=== PATIENT | male | born 1945 | race Caucasian/White ===

== ENCOUNTER 2019-02-20 11:52 | Outpatient (RCR) | payer MEDICARE, MEDICAID, SELFPAY ==
[2019-02-20 12:36] LABS: Alanine Aminotransferase 32 U/L (0-41); Albumin Level 3.4 g/dL (3.5-5.2); Alkaline Phosphatase 99 IU/L (40-130); Aspartate Amino Transferase 38 U/L (0-40); Globulin 3.8 g/dL (1.3-4.6); Total Bilirubin 0.4 mg/dL (0.15-1.2); Total Protein 7.2 g/dL (6.6-8.7); Valproic Acid Level 29.8 mcg/mL (50-100)
== END 2019-03-09 23:59 | disposition home or self-care (01) ==
LOC: LAB 11:52
PROVIDERS: Family Provider Nurse Practitioner Family; Visit Provider Family Medicine
DX: M62.81 Muscle weakness (generalized) (principal); N39.0 Urinary tract infection, site not specified; I48.91 Unspecified atrial fibrillation; I10 Essential (primary) hypertension; F03.90 Unspecified dementia, unspecified severity, without behavioral disturbance, psychotic disturbance, mood disturbance, and anxiety; F31.9 Bipolar disorder, unspecified; G31.1 Senile degeneration of brain, not elsewhere classified
CPT/HCPCS: 80076; 80164

== ENCOUNTER 2019-03-08 12:40 | Day surgery (SDC) | payer MEDICARE, MEDICAID, SELFPAY ==
--- NOTE | 2019-03-06 12:53 | ANES.PREANES ---
Pre-Anesthetic Assessment Pre-Anesthetic Assessment: Height/Weight: Height 1.68 m Weight 65.771 kg Proposed Procedure: Operation Date: 03/08/19 13:55 Proposed Procedures p Cystoscopy 33307 T83.89 N36.8(Not Applicable) - Dom Rai MD s Suprapubic Catheter Placement(Not Applicable) - Dom Rai MD Social: Social History: No alcohol and No tobacco Exam: Pre-Anes Outpt Exam: alert, oriented x 3, clear to auscultation bilaterally and regular rate & rhythm Airway: Submandibular: WNL Cervical ROM: Other (limited) MP: 2 Dentition: Other (very poor) History/ROS: No significant history except as noted Pulmonary: Pulmonary: None reported CV/HEM: CV/HEM: Afib and HTN : : None reported Hepatic: Hepatic: None reported GI: GI: None reported Metabolic: Metabolic: Hyperlipidemia Musc/skel: Musc/skel: OA/DJD and Weakness (LE) Neuropsych: Neuropsych: Anxiety, Bipolar and Depression Anesthetic Plan: ASA status: III Anesthesia: Anesthesia Evaluation and General Risk of > 500 ml blood loss (7ml/kg in children): No PFSH Anesthesia PFSH: Medical History (Updated 03/05/19 @ 12:44 by Dom Rai MD) Atrial fibrillation (Acute) Bipolar disorder (Acute) Contractures involving both knees (Acute) Generalized muscle weakness (Acute) GERD (gastroesophageal reflux disease) (Acute) History of fracture of femur (Acute) Hypertension (Acute) Major depressive disorder (Acute) 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
[2019-03-08] VITALS (13 sets, daily range): BP systolic 104–174; BP diastolic 50–78; PULSE 46–72; RESP 12–20; TEMP 36.4–36.8; O2SAT 93–100
[2019-03-08] MEDS: sodium chloride 0.9% 1,000 ML 30 ML IV (13:26)
--- NOTE | 2019-03-08 13:56 | PM.HPUD ---
H&P update H&P Update: DATE OF SURGERY/PROCEDURE: 03/08/19 DATE H&P PERFORMED: 03/05/19 PLANNED PROCEDURE: Operation Date: 03/08/19 13:55 Proposed Procedures p Cystoscopy 44149 T83.89 N36.8(Not Applicable) - Dom Rai MD s Suprapubic Catheter Placement(Not Applicable) - Dom Rai MD Full H&P Medications/Allergies: Current Medications: Current Medications Generic Name Dose Route Start Last Admin Trade Name Freq PRN Reason Stop Dose Admin Sodium Chloride 1,000 mls @ 30 ml s/hr 03/08/19 13:00 03/08/19 13:26 Sodium Chloride 0.9% IV 03/09/19 12:59 30 mls/hr .Q24H MELISSA Administration Perinent History: Medical/Surgical History: Medical History (Updated 03/05/19 @ 12:44 by Dom Rai MD) Atrial fibrillation (Acute) Bipolar disorder (Acute) Contractures involving both knees (Acute) Generalized muscle weakness (Acute) GERD (gastroesophageal reflux disease) (Acute) History of fracture of femur (Acute) Hypertension (Acute) Major depressive disorder (Acute) 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 Mother , 60 Cancer Social History: Social History Smoking and tobacco status: never smoked Alcohol intake: never Marital status: / Current occupational status: retired
--- NOTE | 2019-03-08 14:03 | PM.OP ---
Operative Report Date of procedure: March 08, 2019 Pre-op Diagnosis: Urethral erosion, chronic Pagan catheter Post-op diagnosis: same Procedure Done: Cystoscopy, suprapubic tube placement, percutaneous Implants: Suprapubic tube Pathology: none sent Surgeon: Dom Rai Anesthesia: General Estimated blood loss: Minimal Urine output: Not measured Complications: None Condition: stable Disposition: PACU Brief History: 74-year-old white male with chronic urinary retention and indwelling Pagan catheter. Presented with progressive hypospadias with catheter related with painful erosion and inflammatory changes. No abdominal incisions or prior surgeries. After detailed discussion he elected to proceed with suprapubic tube. Procedure: After routine preoperative evaluation examination and obtaining of informed consent he was taken to the operating suite on 03/08/2019 where general anesthesia was administered without difficulty after appropriate timeout was performed, SCDs confirmed to be functioning, preoperative antibiotics administered, beta-marely protocol confirmed. Prepped and draped in usual sterile fashion in dorsolithotomy position pain careful attention to avoiding pressure points. 21 Slovenian cystoscope with 30 degrees lens was introduced into the urethral meatus and advanced into the bladder videoscopy. Bladder was systematically examined with 30 and 70 degree lenses. No gross pathology was identified. The bladder was distended and palpated at the suprapubic area. About 3 fingerbreadths above the symphysis pubis a spinal needle was advanced through the skin directly into the bladder and confirmed position with cystoscopy. Small puncture incision was made and then utilizing a jacobs trocar and sheath a punch incision was made through the abdominal wall into the bladder, the trocar withdrawn slightly and the sheath advanced further into the bladder. Trocar was removed and a 16 Slovenian Pagan catheter was placed through the sheath into the bladder. The balloon was inflated. The sheath was withdrawn and peeled away. The tube was then secured to the abdominal wall with heavy silk suture in 2 positions. Tube was confirmed to be functioning well and the procedure was completed. Tolerated the procedure well without complications and was awakened in the operating room and returned to the recovery in stable condition. Plans: 1. Follow-up in 4-5 weeks for first suprapubic change, 18? Fr
[2019-03-08] MEDS: neomycin-poly-bacitracin oint 28 gm 1 APPLIC TOPICAL (14:57)
--- NOTE | 2019-03-08 15:14 | SUR.PHASEI ---
1500- RECEIVED PATIENT IN PACU FROM OR VIA [facility]. RESP ARE EVEN AND NONLABORED. SIMPLE MASK APPLIED AT 6LPM, SAT 99%. HE IS AROUSABLE BUT LETHARGIC. NO S/S PAIN OR NAUSEA. SUPRAPUBIC CATHETER IS PATENT AND HANGING BELOW BLADDER.
--- NOTE | 2019-03-08 15:49 | SUR.PHASEI ---
1532- TRANSFERRED PATIENT FROM PACU TO OPS VIA GURNEY. RESP ARE EVEN AND NONLABORED. SAT 95% WITH ROOM AIR. HE IS AWAKE AND ALERT. DENIES PAIN OR NAUSEA. TRANSITION OF CARE TO. TANNA MANUEL
== END 2019-03-08 16:29 | disposition skilled nursing facility (03) ==
PROVIDERS: PCP Family Medicine; Visit Provider Urology
PROC: 0TJB8ZZ Inspection of Bladder, Via Natural or Artificial Opening Endoscopic (ICD-10-PCS; CPT 52000; principal; 2019-03-08 13:55)
PROC: (CPT 51102; 2019-03-08 13:55)
DX: N36.8 Other specified disorders of urethra (principal); I48.91 Unspecified atrial fibrillation; I10 Essential (primary) hypertension; E78.5 Hyperlipidemia, unspecified; M19.90 Unspecified osteoarthritis, unspecified site; K21.9 Gastro-esophageal reflux disease without esophagitis; F32.9 Major depressive disorder, single episode, unspecified
CPT/HCPCS: 51102; 12345; J1885; J2001; J2405; J2704; J3010; J3490; J7030

== ENCOUNTER 2019-03-23 14:35 | Inpatient (IN) | payer MEDICARE, MEDICAID, SELFPAY ==
[2019-03-23] VITALS (18 sets, daily range): BP systolic 90–153; BP diastolic 49–72; PULSE 29–103; RESP 6–21; TEMP 35.9–38.4; O2SAT 96–100; BMI 24.2
--- NOTE | 2019-03-23 14:37 | ED_ITS ---
Entered by Anitra Veloz, acting as scribe for Nohemi Durán MD HPI - General Adult General: Chief complaint: Arrhythmia/Palpitations Stated complaint: LOW HEART RATE Time Seen by Provider: 03/23/19 14:37 Source: patient, EMS and RN notes reviewed Mode of arrival: EMS Limitations: no limitations History of Present Illness: HPI narrative: 74 yo male presents to ED with complaints of a low heart rate. EMS states the assisted called them because the patient was pale and diaphoretic. EMS states the patient's appearance is the same as it has been every time they have been there. The patient states he feels fine right now, just tired. His pulse is ranging from 30-45. He said his back and L shoulder hurt. The patient has a cough, stating he has had pneumonia. complaint: low heart rate Onset (ago): hour(s) (today) Location: face and chest Radiation: non-radiation Severity: severe Pain Consistency: other (none) Relieving factors: none Exacerbating factors: none Associated symptoms: Reports cough, diaphoresis, malaise and weakness; Deny chest pain, dyspnea, headache(s), nausea, rash or vomiting Treatments prior to arrival: none Review of Systems Const: Reports: malaise and diaphoresis Eyes: Denies: change in vision ENMT: Denies: throat pain or ear pain Card: Denies: chest pain, swelling of feet/ankles, shortness of breath on exertion or shortness of breath when lying down Resp: Denies: shortness of breath GI: Denies: abdominal pain, nausea, vomiting, diarrhea or constipation : Denies: flank pain Skin/Breast: Denies: rash Neuro: Denies: headache, numbness in extremities or weakness in extremities Psych: Denies: depression Endo: Denies: excessive thirst Pedro/Lymph: Denies: easy bruising PFSH ED PFSH: Medical History (Updated 03/23/19 @ 17:52 by Yessi Xiong MD) Atrial fibrillation Bipolar disorder Contractures involving both knees Generalized muscle weakness GERD (gastroesophageal reflux disease) History of fracture of femur Hypertension Major depressive disorder 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 Mother , 60 Cancer Social History Smoking and tobacco status: never smoked Alcohol intake: never Marital status: / Current occupational status: retired Physical Exam Const: COMMON NORMALS: no apparent distress, oriented x3 and alert GENERAL APPEARANCE: cooperative and well developed; not in distress ORIENTATION/CONSCIOUSNESS: Yes awake, Yes oriented to person, Yes oriented to place and Yes oriented to time HENMT: COMMON NORMALS: normocephalic, head/scalp atraumatic, external ears normal, external nose normal and moist oral mucous membranes HEAD & SCALP: normocephalic and atraumatic FACE & SINUS: normal facial exam; no facial tenderness NOSE: external nose normal EXTERNAL EAR: Yes external ears normal MOUTH: oral and palatal mucosa normal, lip normal and tongue normal TEETH & GINGIVA: no abnormal tooth and associated gingiva THROAT: posterior oropharynx normal and uvula midline Eye: COMMON NORMALS: PERRL and EOMs intact bilaterally PUPIL: Yes PERRL Neck/C-Spine: COMMON NORMALS: full ROM, supple and no JVD GENERAL: Yes normal visual inspection and Yes trachea midline CERVICAL SPINE: No cervical spine tenderness Lymph: LYMPHATIC: no lymphadenopathy noted Chest: COMMONS NORMALS: inspection of chest normal Resp: COMMON NORMALS: normal respiratory effort, no use of accessory muscles and clear to auscultation bilaterally EFFORT & INSPECTION: Yes able to speak in complete sentences and Yes symmetric chest movement AUSCULTATION: clear to auscultation bilaterally Cardio: COMMON NORMALS: no JVD, regular rate, regular rhythm, no gallops, no murmurs and peripheral pulses 2+ throughout RATE: regular rate RHYTHM: regular rhythm PERIPHERAL PULSES: pulses 2+ throughout GI: COMMON NORMALS: normal to inspection, nondistended, normoactive bowel sounds, soft to palpation and non-tender PALPATION: Yes soft Back/Pelvis: COMMON NORMALS: thoracic and lumbar spine normal to inspection and thoraco-lumbar ROM normal Extremity: COMMON NORMALS: normal to inspection, full ROM and normal capillary refill Neuro: COMMON NORMALS: oriented x3, CN's II-XII intact bilaterally, moves all extremities, no focal motor deficits and no sensory deficits noted SENSORIUM/ORIENTATION: Yes alert, Yes oriented to person, Yes oriented to place and Yes oriented to time Psych: COMMON NORMALS: mental status grossly normal, thought process normal, cooperative, affect normal, speech normal and activity/motor behavior normal SPEECH: Yes normal speech THOUGHT PROCESS: normal thought process Skin: COMMON NORMALS: no rashes or lesions noted and skin turgor normal GENERAL SKIN EXAM: no rashes or lesions noted and turgor normal Course Vital Signs: Vital signs: Vital Signs Temperature 96.7 F L 03/23/19 16:46 Pulse Rate 36 L 03/23/19 16:46 Respiratory Rate 16 03/23/19 16:46 Blood Pressure 142/60 03/23/19 16:46 Pulse Oximetry 98 03/23/19 15:42 MDM - General Adult Lab Data: Labs: Lab Results 03/23/19 03/23/19 03/23/19 Range/Units 13:50 13:50 13:50 WBC 6.7 (4.0-10.0) 10^3/ uL RBC 3.25 L (4.1-5.3) 10^6/u L Hgb 11.1 L (11.7-16.6) g/dL Hct 29.7 L (42.0-52.0) % MCV 91.4 (80-94) fL MCH 34.2 H (28.0-34.0) pg MCHC 37.4 H (30.0-36.0) g/dL RDW 14.2 (12.1-15.1) % Plt Count 196 (130-400) 10^3/c mm MPV 11.4 H (7.4-10.4) fL Neut % (Auto) 63.3 % Lymph % (Auto) 20.1 % [place] % (Auto) 9.1 % Eos % (Auto) 6.3 % Baso % (Auto) 0.6 % Neut # (Auto) 4.3 (1.8-7.7) 10^3/u L Lymph # (Auto) 1.4 (0.8-4.8) 10^3/u L [place] # (Auto) 0.6 (0.2-0.9) 10^3/u L Eos # (Auto) 0.4 (0.0-0.8) 10^3/u L Baso # (Auto) 0.0 (0.0-0.1) 10^3/u L Nucleated RBC % (a uto) 0 % Nucleated RBCs # 0.0 /100WBC PT 15.20 H (10.5-13.3) SECO NDS INR 1.16 (0.8-1.2) Sodium 132 L (136-145) mmol/L Potassium 4.3 (3.5-5.1) mmol/L Chloride 97 L (98-107) mmol/L Carbon Dioxide 22 (22-29) mmol/L Anion Gap 17.3 (5-19) BUN 23 (8-23) mg/dL Creatinine 0.9 (0.7-1.2) mg/dL Glucose 106 (65-115) mg/dL Calcium 9.7 (8.5-10.5) mg/dL Magnesium 1.6 L (1.7-2.3) mg/dL Total Bilirubin 0.5 (0.15-1.2) mg/dL AST 22 (0-40) U/L ALT 16 (0-41) U/L Alkaline Phosphata se 83 (40-130) IU/L Troponin T Baselin e (0-15) ng/mL NT-Pro-B Natriuret Pep 6216 H (0-450) pg/mL Total Protein 6.5 L (6.6-8.7) g/dL Albumin 3.5 (3.5-5.2) g/dL Globulin 3.0 (1.3-4.6) g/dL TSH 5.69 H (0.27-4.20) uIU/ mL Valproic Acid (50-100) mcg/mL 03/23/19 03/23/19 Range/Units 13:50 13:50 WBC (4.0-10.0) 10^3/ uL RBC (4.1-5.3) 10^6/u L Hgb (11.7-16.6) g/dL Hct (42.0-52.0) % MCV (80-94) fL MCH (28.0-34.0) pg MCHC (30.0-36.0) g/dL RDW (12.1-15.1) % Plt Count (130-400) 10^3/c mm MPV (7.4-10.4) fL Neut % (Auto) % Lymph % (Auto) % [place] % (Auto) % Eos % (Auto) % Baso % (Auto) % Neut # (Auto) (1.8-7.7) 10^3/u L Lymph # (Auto) (0.8-4.8) 10^3/u L [place] # (Auto) (0.2-0.9) 10^3/u L Eos # (Auto) (0.0-0.8) 10^3/u L Baso # (Auto) (0.0-0.1) 10^3/u L Nucleated RBC % (a uto) % Nucleated RBCs # /100WBC PT (10.5-13.3) SECO NDS INR (0.8-1.2) Sodium (136-145) mmol/L Potassium (3.5-5.1) mmol/L Chloride (98-107) mmol/L Carbon Dioxide (22-29) mmol/L Anion Gap (5-19) BUN (8-23) mg/dL Creatinine (0.7-1.2) mg/dL Glucose (65-115) mg/dL Calcium (8.5-10.5) mg/dL Magnesium (1.7-2.3) mg/dL Total Bilirubin (0.15-1.2) mg/dL AST (0-40) U/L ALT (0-41) U/L Alkaline Phosphata se (40-130) IU/L Troponin T Baselin e 64 H (0-15) ng/mL NT-Pro-B Natriuret Pep (0-450) pg/mL Total Protein (6.6-8.7) g/dL Albumin (3.5-5.2) g/dL Globulin (1.3-4.6) g/dL TSH (0.27-4.20) uIU/ mL Valproic Acid 27.3 L (50-100) mcg/mL Imaging Data^: CXR: Radiologist's impression: [address] [address] XRay Report Signed Patient: Matheus Garibay [place] #: [id number] : 4Acct#:[id number] Age/Sex: 74 / MADM Date: 03/23/19 Loc: ERRoom/Bed: Attending Dr: Ordering Provider/Ordering MD: Nohemi Durán MD Date of Service: 03/23/19 Procedure(s): XR chest 1V portable [id number] Accession Number(s): [id number] Report Number: [id number] WS: [id number] PORTABLE CHEST HISTORY: chest pain COMPARISON: None available. Atelectasis at the LEFT lung base partially due to elevated diaphragm. No pleural effusion or pneumothorax. Cardiac size: Mildly enlarged cardiac silhouette. Mediastinum/Aorta: Moderate atherosclerosis aorta. No osseous abnormality seen. XR/XR chest 1V portable [id number] IMPRESSION: Cardiomegaly and partially calcified aorta. Subsegmental atelectasis at the LEFT lung base. Dictated By:Giuliana Sheffield DO Signed By:Giuliana Sheffield DOSigned Date/Time:03/23/19 1518 DD/ EKG Data^: EKG 1: EKG interpretation date: 03/23/19 EKG interpretation time: 14:53 Interpretation: supraventricular bradycardia - rate 31. Non-sepcific ST changes, normal axis Computer generated interpretation: Chest X-Ray 03/23/19 14:49 IMPRESSION: Cardiomegaly and partially calcified aorta. Subsegmental atelectasis at the LEFT lung base. Critical Care Time Critical Care Time: Critical Care Time: Yes Total Critical Care Time: 35 Attestation: This case had a high probability of a clinically significant, sudden, or life threatening deterioration of this patient's condition which required my full and direct attention, intervention and personal management. His symptomatic bradycardia required urgent evaluation, multiple re-evaluations, and multiple consultations. Prior charts, code status were reviewed. Patient requests full code status. Discharge Plan Discharge Admit Provider: Yessi Xiong Discharge Date/Time: 03/23/19 17:07 Coding Level of Care Code ED Miner Helper for Chg Fwd Exam Problem Focused The documentation recorded by the Roselia caballero Valerie R, accurately reflects the service I personally performed and the decisions made by Diane thomas Kathryn L, MD Mar 23, 2019 14:35
--- NOTE | 2019-03-23 14:49 | XR_ITS ---
WS: [id number] PORTABLE CHEST HISTORY: chest pain COMPARISON: None available. Atelectasis at the LEFT lung base partially due to elevated diaphragm. No pleural effusion or pneumot horax. Cardiac size: Mildly enlarged cardiac silhouette. Mediastinum/Aorta: Moderate atherosclerosis aorta. No osseous abnormality seen. XR/XR chest 1V portable [id number] IMPRESSION: Cardiomegaly and partially calcified aorta. Subsegmental atelectasis at the LEFT lung base.
--- NOTE | 2019-03-23 14:50 | ECG_ITS ---
Measurements Intervals [place] Rate: 31 P: SD: 0 QRS: -5 QRSD: 98 T: 46 QT: 571 QTc: 413 SUPRAVENTRICULAR BRADYCARDIA MODERATE T-WAVE ABNORMALITY, CONSIDER LATERAL ISCHEMIA [-0.1+ mV T WAVE IN I/ I/aVL/V5/V6] No previous ECG available for comparison Electronically Signed On 03-23-2019 20:48:43 PHOTOGRAPHER APPRENTICE by Karla Chun M.D. [email or web address]
[2019-03-23 15:07] LABS: Basophils % 0.6 %; Eosinophils # 0.4 10^3/uL (0.0-0.8); Eosinophils % 6.3 %; Hematocrit 29.7 % (42.0-52.0); Hemoglobin 11.1 g/dL (11.7-16.6); Lymphocytes # 1.4 10^3/uL (0.8-4.8); Lymphocytes % 20.1 %; Mean Corpuscular HGB Conc 37.4 g/dL (30.0-36.0); Mean Corpuscular Hemoglobin 34.2 pg (28.0-34.0); Mean Corpuscular Volume 91.4 fL (80-94); Mean Platelet Volume 11.4 fL (7.4-10.4); Monocytes # 0.6 10^3/uL (0.2-0.9); Monocytes % 9.1 %; Neutrophils # 4.3 10^3/uL (1.8-7.7); Neutrophils % 63.3 %; Nucleated Red Blood Cells % 0 %; Platelet Count 196 10^3/cmm (130-400); Red Blood Count 3.25 10^6/uL (4.1-5.3); Red Cell Distribution Width 14.2 % (12.1-15.1); White Blood Count 6.7 10^3/uL (4.0-10.0)
[2019-03-23 15:15] LABS: INR 1.16 (0.8-1.2)
[2019-03-23 15:29] LABS: Troponin(5th) Baseline 64 ng/mL (0-15)
[2019-03-23] MEDS: sodium chloride 0.9% 500 ML IV (15:31)
[2019-03-23 15:34] LABS: Alanine Aminotransferase 16 U/L (0-41); Albumin Level 3.5 g/dL (3.5-5.2); Alkaline Phosphatase 83 IU/L (40-130); Anion Gap 17.3 (5-19); Aspartate Amino Transferase 22 U/L (0-40); Blood Urea Nitrogen 23 mg/dL (8-23); Calcium 9.7 mg/dL (8.5-10.5); Carbon Dioxide 22 mmol/L (22-29); Chloride 97 mmol/L (98-107); Glucose 106 mg/dL (65-115); Magnesium 1.6 mg/dL (1.7-2.3); NT Pro B Type Natriuretic Pept 6216 pg/mL (0-450); Potassium 4.3 mmol/L (3.5-5.1); Sodium 132 mmol/L (136-145); Thyroid Stimulating Hormone 5.69 uIU/mL (0.27-4.20); Total Bilirubin 0.5 mg/dL (0.15-1.2); Total Protein 6.5 g/dL (6.6-8.7)
--- NOTE | 2019-03-23 15:53 | PC.NURSE ---
vs charted at 1542 were charted on wrong patient
[2019-03-23 16:03] LABS: Valproic Acid Level 27.3 mcg/mL (50-100)
[2019-03-23 16:23] LABS: Troponin 5 2HR 59.18 ng/mL (0-15)
[2019-03-23 16:33] LABS: Troponin 5 2HR Delta -4.82 ABS# (0-10)
--- NOTE | 2019-03-23 16:50 | ECG_ITS ---
Measurements Intervals [place] Rate: 31 P: NV: 0 QRS: 191 QRSD: 103 T: 178 QT: 643 QTc: 468 SUPRAVENTRICULAR BRADYCARDIA POSSIBLE RIGHT VENTRICULAR HYPERTROPHY [SOME/ALL OF: PROMINENT R IN V1, LATE TRANSITION, RAD, SATISH, SSS] LATERAL MYOCARDIAL INFARCTION , OF INDETERMINATE AGE [40+ ms Q WAVE AND/OR ST/T ABNORMALITY IN I/aVL/V5/V6] MODERATE T-WAVE ABNORMALITY, CONSIDER ANTERIOR ISCHEMIA [-0.1+ mV T WAVE IN V3/V V3/V4] PROLONGED QT INTERVAL CRITICAL TEST RESULT No previous ECG available for comparison Electronically Signed On 03-23-2019 20:52:10 PICU NURSE by Karla Chun M.D. [email or web address]
--- NOTE | 2019-03-23 17:22 | USCV_ITS ---
Matheus Garibay Age: 74 Gender: M : 1945 Exam Date: 03/23/2019 18:16 Ordering Phys: Yessi Xiong MD Technologist: Mandie Rushing Exam Location: [facility] [place] Indication: BRADYCARDIA BP: 150 / 69 HR: 33 Rhythm: junctional rhythm Technical Quality: Adequate MEASUREMENTS (Male / Female) Normal Values 2D ECHO LV Diastolic Diameter PLAX 5.2 cm 4.2 - 5.9 / 3.9 - 5.3 cm LV Systolic Diameter PLAX 3.8 cm LV Chamber Size 4.9 cm IVS Diastolic Thickness 1.3 cm 0.6 - 1.0 / 0.6 - 0.9 cm IVS Systolic Thickness 1.7 cm LVPW Diastolic Thickness 1.6 cm 0.6 - 1.0 / 0.6 - 0.9 cm LVPW Systolic Thickness 1.6 cm RV Chamber Size 3.6 cm LVOT Diameter 2.0 cm LV Ejection Fraction 2D Teich 50.7 % LV Ejection Fraction MOD 2C 78.9 % LV Ejection Fraction 2C AL 79.3 % LA Diameter 6.6 cm LA Width 2.9 cm LA Height 4.3 cm RA Width 4.1 cm RA Height 5.3 cm Aorta at Sinotubular Diameter 4.1 cm M-MODE LV Diastolic Diameter MM 6.0 cm 4.2 - 5.9 / 3.9 - 5.3 cm LV Systolic Diameter MM 3.9 cm LV Ejection Fraction MM Teich 63.6 % IVS Diastolic Thickness MM 1.1 cm 0.6 - 1.0 / 0.6 - 0.9 cm IVS Systolic Thickness MM 1.7 cm LVPW Diastolic Thickness MM 1.8 cm 0.6 - 1.0 / 0.6 - 0.9 cm LVPW Systolic Thickness MM 1.7 cm RV Diastolic Diameter MM 1.8 cm Aortic Annulus Diameter 4.7 cm LA Ao Ratio MM 1.4 MV E Point Septal Separation 1.2 cm DOPPLER AV Peak Velocity 167.0 cm/s LVOT Peak Velocity 79.0 cm/s AV Area Cont Eq vti 1.6 cm squared AV Area Cont Eq pk 1.5 cm squared MV Area PHT 5.5 cm squared Mitral E to A Ratio 1.4 MV E' Velocity 11.0 cm/s Mitral E to MV E' Ratio 13.3 Mitral E to LV E' Lateral Ratio 12.3 Mitral E to LV E' Septal Ratio 14.7 TR Peak Velocity 386.2 cm/s TR Peak Gradient 59.7 mmHg TR Mean Velocity 299.4 cm/s TR Mean Gradient 39.6 mmHg TR Velocity Time Integral 169.6 cm TV Peak E Velocity 77.0 cm/s PV Peak Velocity 56.0 cm/s RV Acceleration Time 0.1 s RV Ejection Time 0.4 s RV AcT/ET 0.3 FINDINGS Left Ventricle Normal left ventricular size, systolic function and wall thickness, with no regional wall motion abnormalities. Grade I/IV diastolic dysfunction (abnormal relaxation filling pattern), normal to mildly elevated filling pressures. Left ventricular ejection fraction is estimated at 55-60 %. Right Ventricle Normal right ventricular size and systolic function. Right Atrium Mildly increased right atrial size. Left Atrium Moderately increased left atrial size. Mitral Valve Structurally normal mitral valve. Mild-moderate mitral valve regurgitation. Aortic Valve Structurally normal trileaflet aortic valve. No aortic valve stenosis. [id number] aortic valve regurgitation. Tricuspid Valve Structurally normal tricuspid valve. Trace tricuspid valve regurgitation. Pulmonic Valve Pulmonic valve not well visualized. Pericardium Normal pericardium without effusion. Aorta Normal ascending aorta dimension. CONCLUSIONS Normal left ventricular size, systolic function and wall thickness, with no regional wall motion abnormalities. Grade I/IV diastolic dysfunction (abnormal relaxation filling pattern), normal to mildly elevated filling pressures. Left ventricular ejection fraction is estimated at 55-60 %. Mildly increased right atrial size. Moderately increased left atrial size. Structurally normal mitral valve. Mild-moderate mitral valve regurgitation. Structurally normal trileaflet aortic valve. No aortic valve stenosis. [id number] aortic valve regurgitation. There are no prior echocardiogram studies to compare. Dr. Nolan Grover MD (Electronically Signed) Final Date: 24 March 2019 14:24 Amended: 26 March 2019 11:13 C
--- NOTE | 2019-03-23 17:38 | P.HP_ITS ---
Providers/Chief Complaint Admitting Physician: Yessi Xiong MD Primary Care Provider: Rambo Yepez Chief Complaint: BRADYCARDIA History of Present Illness Matheus Garibay JR is a 74 year old male with PMHx of Chronic atrial fibrillation (no AC per med list), HTN, Dementia, Bipolar disorder, Urinary retention s/p recent suprapubic catheter placement (03/08/19), Chronic pain (on opiates); presents from [facility] via ambulance for evaluation of lethargy and noted bradycardia earlier this AM. Patient is a good historian and additional information is obtained from review of medical record as well as discussion with [facility] staff. It seems that earlier this morning during vital signs check patient was noted to have heart rate in the 30s, was noted to be lethargic and not acting quite like himself. Patient is alert, oriented x3 and able to provide a good history during my bedside assessment in the ER. His heart rate remains in the 30-40 range. He denies any chest pain, shortness of breath, lightheadedness or dizziness, headache, blurry vision. He has had a dry cough and has just completed a 10-day course of doxycycline for pneumonia. He is wheelchair-bound at baseline. He denies any recent falls. Per [facility] staff he has not had any other complaints recently, he has had some labs and a chest x-ray done on 03/14 which I have reviewed, copy of chest x-ray report is in the chart showing left-sided infiltrates for which as mentioned above he has been treated with doxycycline. senior care staff informs me that patient intermittently has behavioral issues secondary to his history of dementia and bipolar disorder. He is on several antipsychotics from the medication list provided. He is on diltiazem 240 mg once daily, last dose taken earlier today. He is not on any anticoagulation likely due to a history of gross hematuria. He certainly had a suprapubic catheter placed by Dr. Rai at the end of February due to chronic urinary retention. So far he has received a dose of atropine with minimal improvement as well as a 500 mL normal saline bolus. His blood pressure has been stable. Labs indicate a normal white count of 6.2, mild anemia with a hemoglobin of 11.1, sodium of 132, normal renal function, magnesium of 1.6, BNP of 6216, TSH of 5.61, troponins with a noted delta of 4. Dr. Durán has already spoken with Dr. Grover who will see the patient for further recommendations. For now we will hold diltiazem and monitor the patient on telemetry. He will be admitted for this due to persistent bradycardia. Review of Systems Const: Reports: fatigue and diaphoresis; Denies: fever, chills or change in appetite Eyes: Denies: change in vision ENMT: Denies: dry mouth Card: Denies: chest pain, palpitations, swelling of feet/ankles or lightheadedness Resp: Reports: non-productive cough; Denies: shortness of breath GI: Denies: abdominal pain, nausea, vomiting, vomiting blood or blood in stool : Reports: painful urination; Denies: urinary frequency or blood in urine Musc: Denies: back pain Skin/Breast: Denies: rash Neuro: Denies: numbness in extremities, weakness in extremities or frequent falls Psych: Denies: anxiety Medications/Allergies Allergies Allergy/AdvReac Type Severity Reaction Status Date / Time morphine Allergy ADR-Halluci Verified 03/23/19 14:42 nating PFSH Acute PFSH: Medical History Atrial fibrillation Bipolar disorder Contractures involving both knees Generalized muscle weakness GERD (gastroesophageal reflux disease) History of fracture of femur Hypertension Major depressive disorder 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 Mother , 60 Cancer Social History Smoking and tobacco status: never smoked Alcohol intake: never Marital status: / Current occupational status: retired Vitals/I&O/Wt Last Vital Signs Temp 96.7 F L 03/23/19 16:46 Pulse 36 L 03/23/19 16:46 Resp 16 03/23/19 16:46 BP 142/60 03/23/19 16:46 Pulse Ox 98 03/23/19 15:42 Weight last 48 hrs Weight 68.039 kg Physical Exam Const: COMMON NORMALS: no apparent distress and oriented x3 GENERAL APPEARANCE: cooperative and comfortable ORIENTATION/CONSCIOUSNESS: Yes awake HENMT: COMMON NORMALS: normocephalic, head/scalp atraumatic, hearing grossly normal bilaterally and moist oral mucous membranes HEAD & SCALP: normocephalic and atraumatic Eye: COMMON NORMALS: PERRL, EOMs intact bilaterally and conjunctivae normal CONJUNCTIVA: Yes conjunctivae normal PUPIL: Yes PERRL Neck/C-Spine: COMMON NORMALS: full ROM GENERAL: Yes normal visual inspection and Yes trachea midline Chest: COMMONS NORMALS: inspection of chest normal Resp: COMMON NORMALS: normal respiratory effort, no retractions, no use of accessory muscles and clear to auscultation bilaterally EFFORT & INSPECTION: Yes able to speak in complete sentences, Yes symmetric chest movement and No tachypneic AUSCULTATION: clear to auscultation bilaterally OTHER: - currently on 2 L NC, 100% Cardio: COMMON NORMALS: regular rhythm, S1 normal heart sound, S2 normal heart sound and no murmurs RATE: bradycardic RHYTHM: regular rhythm HEART SOUNDS: S1 normal and S2 normal GI: COMMON NORMALS: normal to inspection, nondistended, normoactive bowel sounds, soft to palpation and non-tender PALPATION: Yes soft : BLADDER/KIDNEY EXAM: Yes catheter in place Catheter type (Male): suprapubic Extremity: COMMON NORMALS: normal to inspection, full ROM and no clubbing, cyanosis or edema; negative for no pedal edema Neuro: COMMON NORMALS: oriented x3, moves all extremities, no focal motor deficits and no sensory deficits noted SENSORIUM/ORIENTATION: Yes alert Psych: COMMON NORMALS: mental status grossly normal, thought process normal, cooperative, affect normal and speech normal SPEECH: Yes normal speech THOUGHT PROCESS: normal thought process Skin: COMMON NORMALS: no rashes or lesions noted, no jaundice, no petechiae and no mottling GENERAL SKIN EXAM: no rashes or lesions noted Data : 03/23/19 13:50 03/23/19 13:50 A&P Assessment and plan (1) Bradycardia: -Patient noted to be bradycardic earlier today at [facility], heart rate as low as 32, had complained of fatigue and was found to be lethargic and slower to respond; likely secondary to medication (Diltiazem) -Continues to be bradycardic here, heart rate in the 30s to 40s range -Received a dose of atropine with minimal response -Has also received a 500 mL bolus of normal saline -Blood pressure has been stable -Telemetry monitoring -Hold diltiazem; patient is also on a number of antipsychotic medications which could be contributing to his bradycardia though to a much lesser extent. Given his underlying behavioral issues would continue these meds for now -Cardiology consult requested -Continue to monitor vital signs closely -Her echo, no baseline available -Troponins noted with delta of 4 -Chest x-ray shows cardiomegaly and atelectasis at left lung base, patient has just completed a 10-day course of doxycycline for pneumonia -TSH-5 Status: Acute Code(s): R00.1 - Bradycardia, unspecified (2) Urinary retention: -Patient has known issues with urinary retention chronically; has been following up with Dr. Rai, had recent suprapubic catheter placement on 03/08/2019 -Continue to monitor urine output -Resume Flomax Status: Acute Code(s): R33.9 - Retention of urine, unspecified Additional A&P Information -Dementia with behavioral disturbance -Bipolar disorder -HTN -Chronic atrial fibrillation, not on AC likely due to hx of gross hematuria from bilateral hydronephrosis -Chronic pain; on hydrocodone -Chronic hyponatremia; baseline Na around 130 -Chronic normocytic anemia; baseline Hg is 10-11 -resume home meds as appropriate; list provided by [facility] -fall precautions, patient is WC-bound at baseline -cardiac diet as tolerated -DVT ppx with Lovenox; monitor for hematuria -Dispo: return to [facility] -Code status: DNR/DNI; paperwork in chart Attestations Medical Necessity Statement*: Matheus Garibay JR's hospital stay will be less than 2 midnights for management of symptomatic bradycardia requiring telemetry monitoring cardiology evaluation. Time Spent in Patient Care: Greater than 35 minutes (>than 50% of time spent in counselling and/or direct pt care on unit) . Coding Level of Care Code Acute Flour Mixer Helper for Arnold Fwdaryl Diagnoses Bradycardia R00.1 Urinary retention R33.9
[2019-03-23 18:26] LABS: Add Urine Microscopic? NO
[2019-03-23 18:31] LABS: Urine Appearance Clear (CLEAR); Urine Color Colorless (Yellow)
[2019-03-23 18:32] LABS: Bilirubin Urine Neg (NEGATIVE); Blood Urine Neg (Negative); Glucose Urine UA Norm (Normal); Ketones Urine Negative (Negative); Leukocyte Esterase Urine Negative (Negative); Nitrate Urine Negative (Negative); Protein Urine Neg (Negative); Specific Gravity, Urine 1.005 (1.005-1.030); Urobilinogen Urine Norm (Negative); pH Urine 6.5 (5-7)
[2019-03-23] MEDS: HYDROcodone-acetaminophen 5-325 mg Tablet 1 TAB PO ×2 (19:41→23:40)
[2019-03-23] MEDS: divalproex Sprinkles 125 mg Capsule PO (19:43)
[2019-03-23] MEDS: enoxaparin 30 mg/0.3 mL Syringe SUBCUT (19:44)
[2019-03-23 20:41] LABS: Troponin 5 6HR 60.71 ng/mL (0-15)
[2019-03-23 20:48] LABS: Troponin 5 6HR Delta -3.29 ng/L (0-12)
--- NOTE | 2019-03-23 20:50 | ECG_ITS ---
Measurements Intervals [place] Rate: 44 P: DE: 0 QRS: 51 QRSD: 82 T: 70 QT: 462 QTc: 397 ATRIAL FIBRILLATION WITH SLOW VENTRICULAR RESPONSE ANTEROSEPTAL MYOCARDIAL INFARCTION [40+ ms Q WAVE IN V1-V4], OF INDETERMINATE AGE No previous ECG available for comparison Electronically Signed On 03-23-2019 20:52:32 MELTER OPERATOR by Karla Chun M.D. [id number]
[2019-03-23] MEDS: atropine 1 mg/mL SDV 1 mL 0.4 MG IVP (21:37)
--- NOTE | 2019-03-23 21:44 | PC.NURSE ---
Patient given a dose of Atropine IVP for bradycardia Heart rate was sustaining less than 40bpm and blood pressure was 122/56 manual.
[2019-03-23] MEDS: donepezil 5 MG Tablet 10 MG PO (22:00)
[2019-03-23] MEDS: magnesium sulfate premix 2 GM/50 ML PIGGYBACK IV (22:53)
--- NOTE | 2019-03-23 23:22 | PC.NURSE ---
Pacer pads placed on patient. Patient verbalized understanding.
[2019-03-24] VITALS (9 sets, daily range): BP systolic 91–171; BP diastolic 51–78; PULSE 25–60; RESP 15–19; TEMP 36.6; O2SAT 90–100; BMI 24.4
[2019-03-24 04:57] LABS: Anion Gap 15.1 (5-19); Blood Urea Nitrogen 25 mg/dL (8-23); Calcium 9.4 mg/dL (8.5-10.5); Carbon Dioxide 23 mmol/L (22-29); Chloride 101 mmol/L (98-107); Glucose 87 mg/dL (65-115); Osmolality Calculated 276 mOsm/kg (285-295); Potassium 4.1 mmol/L (3.5-5.1); Sodium 135 mmol/L (136-145)
[2019-03-24] MEDS: HYDROcodone-acetaminophen 5-325 mg Tablet 1 TAB PO ×3 (08:19→17:49)
[2019-03-24] MEDS: divalproex Sprinkles 125 mg Capsule PO ×2 (08:19→17:51)
[2019-03-24] MEDS: FUROsemide 20 mg Tablet PO (08:21)
[2019-03-24] MEDS: sertraline 50 mg Tablet PO (08:22)
[2019-03-24] MEDS: multivitamin therapeutic Tablet 1 TAB PO (08:22)
[2019-03-24] MEDS: tamsulosin 0.4 mg Capsule PO (08:22)
[2019-03-24] MEDS: lisinopril 20 mg Tablet PO (08:22)
--- NOTE | 2019-03-24 08:55 | PM.PN ---
Subjective Subjective: Interval history: Remains bradycardic, has dipped as low as 29 on recorded vitals, telemetry review shows heart rate in the 30-50 range. Had 600 mL urine output overnight. Patient resting in bed during my assessment, asymptomatic, agreeable to pacemaker if necessary. Received a dose of atropine overnight. Medications: Reviewed: Yes Medication Review Details: Current Medications Generic Name Dose Route Start Last Admin Trade Name Freq PRN Reason Stop Dose Admin Hydrocodone Bitart /Acetaminophen 1 tab 03/23/19 17:23 03/24/19 08:19 [place] 5-325 Mg PO 1 tab Q4H PRN Administration MODERATE TO SEVER E PAIN Atropine Sulfate 0.4 mg 03/23/19 21:30 03/23/19 21:37 Atropine IVP 0.4 mg PRN PRN Administration HEART RATE < 40/M IN Buspirone HCl 15 mg 03/23/19 18:00 03/24/19 08:21 Buspar PO 15 mg BID MELISSA Administration Divalproex Sodium 125 mg 03/23/19 18:00 03/24/19 08:19 Depakote Sprinkl es PO 125 mg BID MELISSA Administration Donepezil HCl 10 mg 03/23/19 21:00 03/23/19 22:00 Aricept PO 10 mg BEDTIME MELISSA Administration Enoxaparin Sodium 30 mg 03/23/19 17:30 03/23/19 19:44 Lovenox SUBCUT 30 mg Q24H MELISSA Administration Furosemide 20 mg 03/24/19 08:00 03/24/19 08:21 Lasix PO 20 mg DAILY@0800 MELISSA Administration Lisinopril 20 mg 03/24/19 09:00 03/24/19 08:22 Prinivil PO 20 mg DAILY MELISSA Administration Multivitamins Ther apeutic 1 tab 03/24/19 09:00 03/24/19 08:22 Multivitamin Tab PO 1 tab DAILY MELISSA Administration Sertraline HCl 50 mg 03/24/19 09:00 03/24/19 08:22 Zoloft PO 50 mg DAILY MELISSA Administration Tamsulosin HCl 0.4 mg 03/24/19 09:00 03/24/19 08:22 Flomax PO 0.4 mg DAILY MELISSA Administration Vitals/I&O/Wt Last Vital Signs Temp 97.9 F 03/24/19 04:00 Pulse 58 L 03/24/19 08:00 Resp 15 03/24/19 08:00 BP 168/73 03/24/19 08:00 Pulse Ox 96 03/24/19 08:00 03/23/19 03/24/19 03/24/19 22:59 06:59 14:59 Intake Total 195 / 195 250 / 445 240 / 240 Output Total 800 / 800 600 / 1400 Balance -605 / -605 -350 / -955 240 / 240 Weight last 48 hrs Weight 68.719 kg Weight 68.719 kg Weight 68.039 kg Physical Exam Const: COMMON NORMALS: no apparent distress, oriented x3 and alert GENERAL APPEARANCE: cooperative and comfortable ORIENTATION/CONSCIOUSNESS: Yes awake HENMT: COMMON NORMALS: normocephalic, head/scalp atraumatic, hearing grossly normal bilaterally and moist oral mucous membranes HEAD & SCALP: normocephalic and atraumatic Eye: COMMON NORMALS: PERRL, EOMs intact bilaterally and conjunctivae normal CONJUNCTIVA: Yes conjunctivae normal PUPIL: Yes PERRL Neck/C-Spine: COMMON NORMALS: full ROM GENERAL: Yes normal visual inspection and Yes trachea midline Chest: COMMONS NORMALS: inspection of chest normal Resp: COMMON NORMALS: normal respiratory effort, no retractions, no use of accessory muscles and clear to auscultation bilaterally EFFORT & INSPECTION: Yes able to speak in complete sentences, Yes symmetric chest movement and No tachypneic AUSCULTATION: clear to auscultation bilaterally OTHER: -currently on 2 L NC, 95% Cardio: COMMON NORMALS: regular rhythm, S1 normal heart sound, S2 normal heart sound and no murmurs RATE: bradycardic RHYTHM: regular rhythm HEART SOUNDS: S1 normal and S2 normal GI: COMMON NORMALS: normal to inspection, nondistended, normoactive bowel sounds, soft to palpation and non-tender PALPATION: Yes soft : BLADDER/KIDNEY EXAM: Yes catheter in place Catheter type (Male): suprapubic Extremity: COMMON NORMALS: normal to inspection, full ROM and no clubbing, cyanosis or edema; negative for no pedal edema Neuro: COMMON NORMALS: oriented x3, moves all extremities, no focal motor deficits and no sensory deficits noted SENSORIUM/ORIENTATION: Yes alert Psych: COMMON NORMALS: mental status grossly normal, thought process normal, cooperative, affect normal and speech normal SPEECH: Yes normal speech THOUGHT PROCESS: normal thought process Skin: COMMON NORMALS: no rashes or lesions noted, no jaundice, no petechiae and no mottling GENERAL SKIN EXAM: no rashes or lesions noted Data : 03/23/19 13:50 03/24/19 03:45 A&P Assessment and plan (1) Bradycardia: -Patient noted to be bradycardic earlier today at assisted, heart rate as low as 32, had complained of fatigue and was found to be lethargic and slower to respond; likely secondary to medication (Diltiazem) -Continues to be bradycardic here, heart rate in the 30s to 40s range -Received a dose of atropine with minimal response in ED -received a 500 mL bolus of normal saline in ED -Blood pressure has been stable -Telemetry monitoring -Hold diltiazem; patient is also on a number of antipsychotic medications which could be contributing to his bradycardia though to a much lesser extent. Given his underlying behavioral issues would continue these meds for now -Cardiology consult by Dr. Grover appreciated -Continue to monitor vital signs closely -echo: EF=55-60%, G1DD, no RWMA, mild-moderate MR, mild-moderate AR, trace TR -Troponins noted with delta of 4 -Chest x-ray shows cardiomegaly and atelectasis at left lung base, patient has just completed a 10-day course of doxycycline for pneumonia -TSH-5.69 Status: Acute Code(s): R00.1 - Bradycardia, unspecified (2) Urinary retention: -Patient has known issues with urinary retention chronically; has been following up with Dr. Rai, had recent suprapubic catheter placement on 03/08/2019 -Continue to monitor urine output -continue Flomax -UA negative Status: Acute Code(s): R33.9 - Retention of urine, unspecified Additional A&P Information -Dementia with behavioral disturbance -Bipolar disorder -HTN -Chronic atrial fibrillation, not on AC likely due to hx of gross hematuria from bilateral hydronephrosis -Chronic pain; on hydrocodone -Chronic hyponatremia; baseline Na around 130 -Chronic normocytic anemia; baseline Hg is 10-11 -continue home meds as appropriate; list provided by [place] -fall precautions, patient is WC-bound at baseline -cardiac diet as tolerated -DVT ppx with Lovenox; monitor for hematuria -[place]po[place] [facility] [place]Code status: DNR/DNI; paperwork in chart Attestations Medical Necessity Statement*: Patient requires hospitalization for continued management of bradycardia including continued telemetry monitoring. Time Spent in Patient Care: Greater than 35 minutes (>than 50% of time spent in counselling and/or direct pt care on unit). Coding Level of Care Code Acute Post Production Assistant for g Fwd Exam Comprehensive Diagnoses Bradycardia R00.1 Urinary retention R33.9
--- NOTE | 2019-03-24 08:58 | ECG_ITS ---
Measurements Intervals [place] Rate: 51 P: DC: 0 QRS: 31 QRSD: 87 T: 19 QT: 459 QTc: 426 ATRIAL FIBRILLATION WITH SLOW VENTRICULAR RESPONSE ABNORMAL RHYTHM ECG Compared to ECG 03/23/2019 20:31:37 Myocardial infarct finding no longer present Electronically Signed On 03-24-2019 14:28:26 JEWEL DIAMETER GAUGER by Nolan Grover M.D. [id number]
[2019-03-24] MEDS: ALPRAZolam 0.25 mg Tablet PO ×2 (12:34→21:05)
--- NOTE | 2019-03-24 12:56 | P.CONIM_ITS ---
Providers/Reason For Consult Consulting Physican/Specialty*: Cardiovascular diseases Reason for Consult*: Bradycardia Attending Physician: Yessi Xiong MD Primary Care Provider: Rambo Yepez History of Present Illness History of Present Illness Matheus Garibay JR is a 74 year old male who was [facility] the [facility] yesterday with heart rates in the low 30s. His blood pressure was fine. He was complaining of weakness apparently. He has underlying atrial fibrillation and is on Cardizem CD 240 mg a day. He is also on a number of other medications that may slow his heart rate. Those will be discussed below. For reasons that are not clear to me he was given some atropine both in the emergency room and here on the floor. The atropine did not make any difference. The patient's blood pressure has been normal to high since he has been here. Today he tells me he is bored. He lives in a penitentiary, has some psychiatric problems that include bipolar affective disorder and dementia. He is a previous heavy drinker. In the emergency room his heart rate was in the low 30s with a narrow complex escape rhythm. Over the ensuing 24 hours or so his heart rate has crept up into the 40s and 50s at times. He is asymptomatic. Review of Systems General: Reports: ROS unobtainable due to mental status Meds/Allergies Home Medications and Allergies Home Medications Medication Instructions Recorded Confirmed Type acetaminophen 325 mg capsule 325 mg PO Q6H PRN 02/27/19 03/23/19 History buspirone 15 mg tablet 15 mg PO BID tab 02/27/19 03/23/19 History diltiazem HCl 240 mg capsule,24 240 mg PO QAM 02/27/19 03/23/19 History hr,extended release divalproex 125 mg tablet,delayed 125 mg PO BID 02/27/19 03/23/19 History release donepezil 10 mg tablet 10 mg PO DAILY 02/27/19 03/23/19 History furosemide 20 mg tablet 20 mg PO DAILY 02/27/19 03/23/19 History hydrocodone 5 mg-acetaminophen 325 1 tab PO Q4-5H PRN 02/27/19 03/23/19 History mg tablet lisinopril 20 mg tablet 20 mg PO DAILY 02/27/19 03/23/19 History magnesium 250 mg tablet 250 mg PO DAILY 02/27/19 03/23/19 History potassium chloride 10 mEq 10 meq PO DAILY 02/27/19 03/23/19 History capsule,extended release sennosides 8.6 mg capsule 8.6 mg PO BEDTIME PRN 02/27/19 03/23/19 History sertraline 50 mg tablet 50 mg PO DAILY 02/27/19 03/23/19 History tamsulosin 0.4 mg capsule 0.4 mg PO DAILY 02/27/19 03/23/19 History tizanidine 4 mg capsule 4 mg PO BID 02/27/19 03/23/19 History trazodone 100 mg tablet 100 mg PO BEDTIME 02/27/19 03/23/19 History bisacodyl 10 mg rectal suppository 10 mg AK DAILY PRN 03/02/19 03/23/19 History mirtazapine 7.5 mg tablet 7.5 mg PO BEDTIME tab 03/02/19 03/23/19 History polyethylene glycol 3350 17 gram 17 gm PO DAILY PRN 03/02/19 03/23/19 History oral powder packet Milk of Magnesia 30 ml PO DAILY PRN 03/06/19 03/23/19 History multivitamin 1 tab PO DAILY 03/06/19 03/23/19 History alprazolam [Xanax] 0.25 mg PO BID PRN 03/08/19 03/23/19 History Allergies Allergy/AdvReac Type Severity Reaction Status Date / Time morphine Allergy ADR-Halluci Verified 03/23/19 14:42 nating Current Medications Current Medications Generic Name Dose Route Start Last Admin Trade Name Freq PRN Reason Stop Dose Admin Hydrocodone Bitart/Acetaminophen 1 tab 03/23/19 17:23 03/24/19 12:33 [place] 5-325 Mg PO 1 tab Q4H PRN Administration MODERATE TO SEVERE PAIN Alprazolam 0.25 mg 03/23/19 17:34 03/24/19 12:34 Xanax PO 0.25 mg BID PRN Administration ANXIETY Atropine Sulfate 0.4 mg 03/23/19 21:30 03/23/19 21:37 Atropine IVP 0.4 mg PRN PRN Administration HEART RATE < 40/MIN Buspirone HCl 15 mg 03/23/19 18:00 03/24/19 08:21 Buspar PO 15 mg BID MELISSA Administration Divalproex Sodium 125 mg 03/23/19 18:00 03/24/19 08:19 Depakote Sprinkles PO 125 mg BID MELISSA Administration Donepezil HCl 10 mg 03/23/19 21:00 03/23/19 22:00 Aricept PO 10 mg BEDTIME MELISSA Administration Enoxaparin Sodium 30 mg 03/23/19 17:30 03/23/19 19:44 Lovenox SUBCUT 30 mg Q24H MELISSA Administration Furosemide 20 mg 03/24/19 08:00 03/24/19 08:21 Lasix PO 20 mg DAILY@0800 MELISSA Administration Lisinopril 20 mg 03/24/19 09:00 03/24/19 08:22 Prinivil PO 20 mg DAILY MELISSA Administration Multivitamins Therapeutic 1 tab 03/24/19 09:00 03/24/19 08:22 Multivitamin Tab PO 1 tab DAILY MELISSA Administration Sertraline HCl 50 mg 03/24/19 09:00 03/24/19 08:22 Zoloft PO 50 mg DAILY MELISSA Administration Tamsulosin HCl 0.4 mg 03/24/19 09:00 03/24/19 08:22 Flomax PO 0.4 mg DAILY MELISSA Administration PFSH Acute PFSH: Medical History (Updated 03/24/19 @ 13:02 by Nolan Grover MD) Alcoholism in remission Atrial fibrillation Bipolar disorder Contractures involving both knees Diabetes mellitus Generalized muscle weakness GERD (gastroesophageal reflux disease) History of fracture of femur Hypertension Major depressive disorder 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 Mother , 60 Cancer Social History Smoking and tobacco status: never smoked Alcohol intake: never Marital status: / Current occupational status: retired Vitals/I&O/Wt Last Vital Signs Temp 97.9 F 03/24/19 04:00 Pulse 53 L 03/24/19 11:45 Resp 17 03/24/19 11:45 BP 155/78 03/24/19 11:45 Pulse Ox 95 03/24/19 11:45 03/23/19 03/24/19 03/24/19 22:59 06:59 14:59 Intake Total 195 / 195 250 / 445 480 / 480 Output Total 800 / 800 600 / 1400 600 / 600 Balance -605 / -605 -350 / -955 -120 / -120 Weight last 48 hrs Weight 151 lb 8 oz Weight 151 lb 8 oz Weight 150 lb Physical Exam Narrative: EXAM NARRATIVE: GENERAL: In general he is awake and alert, conversant and seems oriented HEENT: Exam within normal limits. NECK: Supple without jugular vein distention. The carotid upstroke is normal without bruits. BACK: Exam normal. LUNGS: Clear. HEART: Regular rate and rhythm. ABDOMEN: Benign without organomegaly or tenderness. EXTREMITIES: No edema. NEUROLOGIC: Exam normal. SKIN: Unremarkable. Data Other Data: Other data: Magnesium 1.6. Troponins 60, 64 and 59. BNP 6216. EKG reveals atrial fibrillation or junctional rhythm with a narrow complex escape, rate 31 bpm. 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 Cardizem clearly would be the most likely culprit. There is information in the literature that suggests that almost all of the central nervous system acting medications he takes can cause bradycardia. Those include BuSpar, valproic acid, donepezil, mirtazapine, trazodone and tizanidine. The only entry in the literature regarding tizanidine was in hemodialysis patients. I could find nothing about sertraline and bradycardia. It looks like his heart rate is coming up probably due to the holding of the Cardizem. I asked him specifically if he would want a pacemaker and he said yes. If one is ever put in it should be a simple single-lead pacemaker in the VVI mode. Hopefully his heart rate will come up enough that he will not need 1. I would monitor him another 24 hours and see. His blood pressure has been stable and in fact is somewhat high today. 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
--- NOTE | 2019-03-24 14:41 | PC.CHAP ---
Pastoral Care Encounter/Spiritual Assessment Type of Contact [] Declined lane attendant visit [] Patient/Family/Request visit [] Outpatient visit [] Follow-up visit [] Physician referral [] Code/Alert [x] Routine visit [] Staff referral [] Actively dying [] Patient sleeping [] Family support [] [] Out of room [] Palliative care [] [] Receiving care in room [] Pre-surgical visit [] Trauma [] Long length of stay [] ICU visit [] Other: Relational/Emotional Strength [x] Patient feels connected with others/family/visitors/staff [] Distress [] Loneliness/isolation [] Abandonment Spirituality of Patient [x] Person of Janice [x] Attends Lutheran of their Janice [x] Believes in Prayer [] Reads Bible or Oriental Orthodox materials [] There are Spiritual issues to be addressed Money Manager Interventions [x] Prayer [x] Active listening [x] Non-anxious presence [x] Spiritual/emotional support [] Crisis/trauma care [x] Spiritual counseling [] Bereavement support [] Provided bereavement packet [] Provided Bible/devotional materials [] Provided toy/stuffed animal, coloring book to patient or family member [] Provided Communion [] Anointing/[place] [] Salvation [x] Completed spiritual assessment [] Other: Impact on Illness or Injury [] Angry [] Fearful [] Anxious [] Often cries [] Exhaustion [] Unable to work [] Unable to attend yarsani [] Unable to walk/stand [] Unable to read [x] Unable to drive [] Unable to eat/drink [] Unable to sleep [] Unable to be with family [] Patient intubated [] Other: Summary The patient was still weak but feeling better, said that he would be going to a detention when discharged. A very pleasent gentleman. Time spent with patient 15 min.
[2019-03-24] MEDS: enoxaparin 30 mg/0.3 mL Syringe SUBCUT (17:50)
[2019-03-24] MEDS: tizanidine 4 mg Tablet PO (17:51)
[2019-03-24] MEDS: donepezil 5 MG Tablet 10 MG PO (21:04)
[2019-03-24] MEDS: atropine 1 mg/mL SDV 1 mL 0.4 MG IVP (22:51)
--- NOTE | 2019-03-24 23:00 | PC.NURSE ---
At 2300 atropine given for heart rate ranging 29 to 35 bpm. Patient easily awoken and alert to baseline. Good radial pulse and has urine output. Will continue to monitor.
[2019-03-25] VITALS (7 sets, daily range): BP systolic 122–184; BP diastolic 53–74; PULSE 32–60; RESP 14–24; TEMP 36.5–37.2; O2SAT 91–98
[2019-03-25] MEDS: atropine 1 mg/mL SDV 1 mL 0.4 MG IVP ×2 (02:35→23:46)
--- NOTE | 2019-03-25 02:40 | PC.NURSE ---
Atropine given for heart rate sustained in the 30's Patient is easily awoken. Alert and oriented to baseline. Respirations are even and unlabored. Patient states he feel's fine he just want's a good night's sleep
--- NOTE | 2019-03-25 03:26 | PC.NURSE ---
Dr. Myrick called to check on patient. Updated on patient's heartrate, blood pressure, urine output, that patient is easy to wake up, and that I gave another dose of atropine.
[2019-03-25] MEDS: HYDROcodone-acetaminophen 5-325 mg Tablet 1 TAB PO ×4 (05:36→22:25)
--- NOTE | 2019-03-25 08:13 | PM.PN ---
Subjective Subjective: Interval history: Matheus has had an uneventful night. His blood pressure has been high however his heart rate is still low. The slowest heart rate was in the 30s overnight. The longest pause was 4 seconds. He remains bradycardic overall with the highest heart rates in the low 50s. His blood pressure, on the other hand has been normal to high. Currently it is 184/64. He is asymptomatic and tells me he is bored. I asked him again about a pacemaker. He states that if he needs it he wants it. Medications: Reviewed: Yes Vitals/I&O/Wt Last Vital Signs Temp 98.7 F 03/25/19 07:45 Pulse 45 L 03/25/19 07:45 Resp 16 03/25/19 07:45 BP 184/64 03/25/19 07:45 Pulse Ox 96 03/25/19 07:45 03/24/19 03/25/19 03/25/19 22:59 06:59 14:59 Intake Total 340 / 820 100 / 920 Output Total 850 / 1450 300 / 1750 Balance -510 / -630 -200 / -830 Weight last 48 hrs Weight 146 lb 9.6 oz Weight 151 lb 8 oz Weight 151 lb 8 oz Weight 150 lb Physical Exam Narrative: EXAM NARRATIVE: GENERAL: In general he is comfortable HEENT: Exam within normal limits. NECK: Supple without jugular vein distention. The carotid upstroke is normal without bruits. BACK: Exam normal. LUNGS: Clear. HEART: Irregular rate and rhythm with bradycardia ABDOMEN: Benign without organomegaly or tenderness. EXTREMITIES: No edema. NEUROLOGIC: Exam normal. SKIN: Unremarkable. Data : 03/23/19 13:50 03/24/19 03:45 A&P Assessment and plan (1) Bradycardia: Status: Acute Code(s): R00.1 - Bradycardia, unspecified (2) Atrial fibrillation: Status: Acute Code(s): I48.91 - Unspecified atrial fibrillation (3) Bipolar disorder: Status: Acute Code(s): F31.9 - Bipolar disorder, unspecified (4) Hypertension: Status: Acute Code(s): I10 - Essential (primary) hypertension Additional A&P Information We will wait 24 hours more. If he is still bradycardic without any AV tania blocking agents we will move toward placing a single-chamber pacemaker in the VVI mode. I do not think we can stop all of his central nervous system acting drugs one at a time to assess their effect on his heart rate. Therefore, if he is still slow today and overnight we should place a single-chamber wire and treat with medications that are appropriate. Attestations Medical Necessity Statement*: Not applicable Coding Level of Care Code Established Pt Acute Aquaculture Program Director for [employer] Fwd Patient Type Established History Detailed Exam Detailed Medical Decision Making Moderate Complexity Diagnoses Bradycardia R00.1 Atrial fibrillation I48.91 Bipolar disorder F31.9 Hypertension I10
--- NOTE | 2019-03-25 09:03 | PM.PN ---
Subjective Subjective: Interval history: Remains bradycardic, per vitals was as low as 25; asymptomatic. Noted to be hypertensive, Amlodipine added. Review of telemetry shows heart rate in the 30-50 range. Patient has no complaints currently. No acute overnight events reported. Medications: Reviewed: Yes Medication Review Details: Current Medications Generic Name Dose Route Start Last Admin Trade Name Freq PRN Reason Stop Dose Admin Hydrocodone Bitart /Acetaminophen 1 tab 03/23/19 17:23 03/25/19 05:36 [place] 5-325 Mg PO 1 tab Q4H PRN Administration MODERATE TO SEVER E PAIN Alprazolam 0.25 mg 03/23/19 17:34 03/24/19 21:05 Xanax PO 0.25 mg BID PRN Administration ANXIETY Atropine Sulfate 0.4 mg 03/23/19 21:30 03/25/19 02:35 Atropine IVP 0.4 mg PRN PRN Administration HEART RATE < 40/M IN Buspirone HCl 15 mg 03/23/19 18:00 03/24/19 17:51 Buspar PO 15 mg BID MELISSA Administration Divalproex Sodium 125 mg 03/23/19 18:00 03/24/19 17:51 Depakote Sprinkl es PO 125 mg BID MELISSA Administration Donepezil HCl 10 mg 03/23/19 21:00 03/24/19 21:04 Aricept PO 10 mg BEDTIME MELISSA Administration Enoxaparin Sodium 30 mg 03/23/19 17:30 03/24/19 17:50 Lovenox SUBCUT 30 mg Q24H MELISSA Administration Furosemide 20 mg 03/24/19 08:00 03/24/19 08:21 Lasix PO 20 mg DAILY@0800 MELISSA Administration Lisinopril 20 mg 03/24/19 09:00 03/24/19 08:22 Prinivil PO 20 mg DAILY MELISSA Administration Multivitamins Ther apeutic 1 tab 03/24/19 09:00 03/24/19 08:22 Multivitamin Tab PO 1 tab DAILY MELISSA Administration Sertraline HCl 50 mg 03/24/19 09:00 03/24/19 08:22 Zoloft PO 50 mg DAILY MELISSA Administration Tamsulosin HCl 0.4 mg 03/24/19 09:00 03/24/19 08:22 Flomax PO 0.4 mg DAILY MELISSA Administration Tizanidine HCl 4 mg 03/23/19 17:34 03/24/19 17:51 Zanaflex PO 4 mg BID PRN Administration SPASMS Vitals/I&O/Wt Last Vital Signs Temp 98.7 F 03/25/19 07:45 Pulse 45 L 03/25/19 07:45 Resp 16 03/25/19 07:45 BP 184/64 03/25/19 07:45 Pulse Ox 96 03/25/19 07:45 03/24/19 03/25/19 03/25/19 22:59 06:59 14:59 Intake Total 340 / 820 100 / 920 360 / 360 Output Total 850 / 1450 300 / 1750 Balance -510 / -630 -200 / -830 360 / 360 Weight last 48 hrs Weight 66.497 kg Weight 68.719 kg Weight 68.719 kg Weight 68.039 kg Physical Exam Const: COMMON NORMALS: no apparent distress, oriented x3 and alert GENERAL APPEARANCE: cooperative and comfortable ORIENTATION/CONSCIOUSNESS: Yes awake HENMT: COMMON NORMALS: normocephalic, head/scalp atraumatic, hearing grossly normal bilaterally and moist oral mucous membranes HEAD & SCALP: normocephalic and atraumatic Eye: COMMON NORMALS: PERRL, EOMs intact bilaterally and conjunctivae normal CONJUNCTIVA: Yes conjunctivae normal PUPIL: Yes PERRL Neck/C-Spine: COMMON NORMALS: full ROM GENERAL: Yes normal visual inspection and Yes trachea midline Chest: COMMONS NORMALS: inspection of chest normal Resp: COMMON NORMALS: normal respiratory effort, no retractions, no use of accessory muscles and clear to auscultation bilaterally EFFORT & INSPECTION: Yes able to speak in complete sentences, Yes symmetric chest movement and No tachypneic AUSCULTATION: clear to auscultation bilaterally OTHER: -currently on 2 L NC, 95% Cardio: COMMON NORMALS: regular rhythm, S1 normal heart sound, S2 normal heart sound and no murmurs RATE: bradycardic RHYTHM: regular rhythm HEART SOUNDS: S1 normal and S2 normal GI: COMMON NORMALS: normal to inspection, nondistended, normoactive bowel sounds, soft to palpation and non-tender PALPATION: Yes soft : BLADDER/KIDNEY EXAM: Yes catheter in place Extremity: COMMON NORMALS: normal to inspection, full ROM and no clubbing, cyanosis or edema; negative for no pedal edema Neuro: COMMON NORMALS: oriented x3, moves all extremities, no focal motor deficits and no sensory deficits noted SENSORIUM/ORIENTATION: Yes alert Psych: COMMON NORMALS: mental status grossly normal, thought process normal, cooperative, affect normal and speech normal SPEECH: Yes normal speech THOUGHT PROCESS: normal thought process Skin: COMMON NORMALS: no rashes or lesions noted, no jaundice, no petechiae and no mottling GENERAL SKIN EXAM: no rashes or lesions noted Data : 03/23/19 13:50 03/24/19 03:45 A&P Assessment and plan (1) Bradycardia: -Patient noted to [facility], heart rate as low as 32, had complained of fatigue and was found to be lethargic and slower to respond; likely secondary to medication (Diltiazem) -Continues to be bradycardic here, heart rate in the 30s to 40s range -Received a dose of atropine with minimal response in ED -received a 500 mL bolus of normal saline in ED -Blood pressure has been stable -Telemetry monitoring -Hold diltiazem; patient is also on a number of antipsychotic medications which could be contributing to his bradycardia though to a much lesser extent. Given his underlying behavioral issues would continue these meds for now -Cardiology consult by Dr. Grover appreciated; if persistently bradycardic over the next 24 hours, may need pacemaker placement -Continue to monitor vital signs closely -echo: EF=55-60%, G1DD, no RWMA, mild-moderate MR, mild-moderate AR, trace TR -Troponins noted with delta of 4 -Chest x-ray shows cardiomegaly and atelectasis at left lung base, patient has just completed a 10-day course of doxycycline for pneumonia -TSH-5.69 Status: Acute Code(s): R00.1 - Bradycardia, unspecified (2) Urinary retention: -Patient has known issues with urinary retention chronically; has been following up with Dr. Rai, had recent suprapubic catheter placement on 03/08/2019 -Continue to monitor urine output -continue Flomax -UA negative Status: Acute Code(s): R33.9 - Retention of urine, unspecified Additional A&P Information -Dementia with behavioral disturbance -Bipolar disorder -HTN; due to continued hypertension, amlodipine added -Chronic atrial fibrillation, not on AC likely due to hx of gross hematuria from bilateral hydronephrosis -Chronic pain; on hydrocodone -Chronic hyponatremia; baseline Na around 130 -Chronic normocytic anemia; baseline Hg is 10-11 -continue home meds as appropriate; list provided by [place] -fall precautions, patient is WC-bound at baseline -cardiac diet as tolerated -DVT ppx with Lovenox; monitor for hematuria -Dispo: return to [facility] -Code status: DNR/DNI; paperwork in chart Attestations Medical Necessity Statement*: Patient requires hospitalization for continued management of bradycardia including continued telemetry monitoring to determine if need for pacemaker. Time Spent in Patient Care: Greater than 35 minutes (>than 50% of time spent in counselling and/or direct pt care on unit). Coding Level of Care Code Acute Divisional Human Resources Director for [employer] Fwd Exam Comprehensive Diagnoses Bradycardia R00.1 Urinary retention R33.9
[2019-03-25] MEDS: FUROsemide 20 mg Tablet PO (09:34)
[2019-03-25] MEDS: tamsulosin 0.4 mg Capsule PO (09:34)
[2019-03-25] MEDS: lisinopril 20 mg Tablet PO (09:34)
[2019-03-25] MEDS: multivitamin therapeutic Tablet 1 TAB PO (09:35)
[2019-03-25] MEDS: sertraline 50 mg Tablet PO (09:35)
[2019-03-25] MEDS: divalproex Sprinkles 125 mg Capsule PO ×2 (09:35→18:20)
[2019-03-25] MEDS: amlodipine 5 mg Tablet PO (09:35)
[2019-03-25] MEDS: bisacodyl 10 mg Supp PR (09:52)
[2019-03-25] MEDS: ALPRAZolam 0.25 mg Tablet PO ×2 (13:45→21:45)
[2019-03-25] MEDS: ondansetron 2 mg/ML SDV 2 mL 4 MG IVP (13:45)
[2019-03-25] MEDS: enoxaparin 30 mg/0.3 mL Syringe SUBCUT (18:21)
[2019-03-25] MEDS: donepezil 5 MG Tablet 10 MG PO (21:10)
[2019-03-25] MEDS: sennosides 8.6 mg Tablet PO (21:10)
[2019-03-25] MEDS: tizanidine 4 mg Tablet PO (22:25)
--- NOTE | 2019-03-25 22:33 | PC.NURSE ---
Patient is a bit more confused this shift. Patient wants me to order his surgery and is upset that his surgery is not ordered yet. I explained to the patient that Dr. Grover wanted us to monitor his heart rate tonight and will talk to him in the morning. Patient was not satisifed with this answer. Will continue to monitor and re orient patient.
--- NOTE | 2019-03-25 23:52 | PC.NURSE ---
Patient given 0.4mg of Atropine for heart rate ranging 28 to 35. Patient is easy to wake up but was resting with eyes closed and respirations are even and unlabored. Will continue to monitor.
[2019-03-26] VITALS (12 sets, daily range): BP systolic 131–169; BP diastolic 49–99; PULSE 33–71; RESP 11–26; TEMP 36.4–36.8; O2SAT 94–99
--- NOTE | 2019-03-26 | XR_ITS ---
WS: [id number] XR chest 1V [id number] REASON FOR EXAM: POST PACEMAKER INSERTION FINDINGS: A single electrode pacemaker seen in the left upper chest. Off the left hilum there appears to be atelectasis now evident not seen on previous exam March 23, 2019. Follow-up evaluation praveen mmended. The heart is again noted to be borderline enlarged. XR/XR chest 1V [id number] IMPRESSION: Single electrode pacemaker extends from the left side in good position. Appears to be atelectasis off the lingula segment on the left.
--- NOTE | 2019-03-26 | SCC_ITS ---
Procedure Done: Single-lead pacemaker implantation 68.9 seconds of fluoroscopic guidance, for a cumulative dose of 17.8 mGy, was provided to Dr. Berry by the radiology department. No permanent C-osmin images were obtained. [facility]
[2019-03-26] MEDS: atropine 1 mg/mL SDV 1 mL 0.4 MG IVP (02:19)
[2019-03-26] MEDS: divalproex Sprinkles 125 mg Capsule PO (09:35)
[2019-03-26] MEDS: FUROsemide 20 mg Tablet PO (09:35)
[2019-03-26] MEDS: multivitamin therapeutic Tablet 1 TAB PO (09:35)
[2019-03-26] MEDS: lisinopril 20 mg Tablet PO (09:35)
[2019-03-26] MEDS: amlodipine 5 mg Tablet PO (09:35)
[2019-03-26] MEDS: tamsulosin 0.4 mg Capsule PO (09:35)
[2019-03-26] MEDS: HYDROcodone-acetaminophen 5-325 mg Tablet 1 TAB PO ×2 (09:40→19:13)
--- NOTE | 2019-03-26 09:44 | PM.PN ---
Subjective Subjective: Interval history: Patient remains bradycardic, heart rate dropped into the 20s, received a dose of atropine. Pacemaker placement by Dr. Berry this afternoon, is NPO. Medications: Reviewed: Yes Medication Review Details: Current Medications Generic Name Dose Route Start Last Admin Trade Name Freq PRN Reason Stop Dose Admin Hydrocodone Bitart /Acetaminophen 1 tab 03/23/19 17:23 03/26/19 09:40 [place] 5-325 Mg PO 1 tab Q4H PRN Administration MODERATE TO SEVER E PAIN Alprazolam 0.25 mg 03/23/19 17:34 03/25/19 21:45 Xanax PO 0.25 mg BID PRN Administration ANXIETY Amlodipine Besylat e 5 mg 03/25/19 09:00 03/26/19 09:35 Norvasc PO 5 mg DAILY MELISSA Administration Atropine Sulfate 0.4 mg 03/23/19 21:30 03/26/19 02:19 Atropine IVP 0.4 mg PRN PRN Administration HEART RATE < 40/M IN Bisacodyl 10 mg 03/25/19 09:50 03/26/19 09:36 Bisac-Evac [place] Not Given DAILY MELISSA Buspirone HCl 15 mg 03/23/19 18:00 03/26/19 09:35 Buspar PO 15 mg BID MELISSA Administration Divalproex Sodium 125 mg 03/23/19 18:00 03/26/19 09:35 Depakote Sprinkl es PO 125 mg BID MELISSA Administration Donepezil HCl 10 mg 03/23/19 21:00 03/25/19 21:10 Aricept PO 10 mg BEDTIME MELISSA Administration Enoxaparin Sodium 30 mg 03/23/19 17:30 03/25/19 18:21 Lovenox SUBCUT 30 mg Q24H MELISSA Administration Furosemide 20 mg 03/24/19 08:00 03/26/19 09:35 Lasix PO 20 mg DAILY@0800 MELISSA Administration Lisinopril 20 mg 03/24/19 09:00 03/26/19 09:35 Prinivil PO 20 mg DAILY MELISSA Administration Multivitamins Ther apeutic 1 tab 03/24/19 09:00 03/26/19 09:35 Multivitamin Tab PO 1 tab DAILY MELISSA Administration Ondansetron HCl 4 mg 03/23/19 17:23 03/25/19 13:45 Zofran IVP 4 mg Q6H PRN Administration vomiting, or N/V if npo Senna 8.6 mg 03/25/19 21:00 03/25/19 21:10 Senna Lax PO 8.6 mg BEDTIME MELISSA Administration Tamsulosin HCl 0.4 mg 03/24/19 09:00 03/26/19 09:35 Flomax PO 0.4 mg DAILY MELISSA Administration Tizanidine HCl 4 mg 03/23/19 17:34 03/25/19 22:25 Zanaflex PO 4 mg BID PRN Administration SPASMS Vitals/I&O/Wt Last Vital Signs Temp 97.8 F 03/26/19 07:51 Pulse 46 L 03/26/19 07:51 Resp 11 L 03/26/19 07:51 BP 149/54 03/26/19 07:51 Pulse Ox 95 03/26/19 07:51 03/25/19 03/26/19 03/26/19 22:59 06:59 14:59 Intake Total 460 / 1020 Output Total 325 / 725 Balance 460 / 620 -325 / 295 Weight last 48 hrs Weight 66.134 kg Weight 66.497 kg Physical Exam Const: COMMON NORMALS: no apparent distress, oriented x3 and alert GENERAL APPEARANCE: cooperative and comfortable ORIENTATION/CONSCIOUSNESS: Yes awake HENMT: COMMON NORMALS: normocephalic, head/scalp atraumatic, hearing grossly normal bilaterally and moist oral mucous membranes HEAD & SCALP: normocephalic and atraumatic Eye: COMMON NORMALS: PERRL, EOMs intact bilaterally and conjunctivae normal CONJUNCTIVA: Yes conjunctivae normal PUPIL: Yes PERRL Neck/C-Spine: COMMON NORMALS: full ROM GENERAL: Yes normal visual inspection and Yes trachea midline Chest: COMMONS NORMALS: inspection of chest normal Resp: COMMON NORMALS: normal respiratory effort, no retractions, no use of accessory muscles and clear to auscultation bilaterally EFFORT & INSPECTION: Yes able to speak in complete sentences, Yes symmetric chest movement and No tachypneic AUSCULTATION: clear to auscultation bilaterally OTHER: -currently on 2 L NC, 95% Cardio: COMMON NORMALS: regular rhythm, S1 normal heart sound, S2 normal heart sound and no murmurs RATE: bradycardic RHYTHM: regular rhythm HEART SOUNDS: S1 normal and S2 normal GI: COMMON NORMALS: normal to inspection, nondistended, normoactive bowel sounds, soft to palpation and non-tender PALPATION: Yes soft : BLADDER/KIDNEY EXAM: Yes catheter in place Extremity: COMMON NORMALS: normal to inspection, full ROM and no clubbing, cyanosis or edema; negative for no pedal edema OTHER: -contracted bilateral LEs Neuro: COMMON NORMALS: oriented x3, moves all extremities, no focal motor deficits and no sensory deficits noted SENSORIUM/ORIENTATION: Yes alert Psych: COMMON NORMALS: mental status grossly normal, thought process normal, cooperative, affect normal and speech normal SPEECH: Yes normal speech THOUGHT PROCESS: normal thought process Skin: COMMON NORMALS: no rashes or lesions noted, no jaundice, no petechiae and no mottling GENERAL SKIN EXAM: no rashes or lesions noted Data : 03/23/19 13:50 03/26/19 12:40 A&P Assessment and plan (1) Bradycardia: -Patient noted to be bradycardic at [facility], heart rate as low as 32, had complained of fatigue and was found to be lethargic and slower to respond; likely secondary to medication (Diltiazem) -Continues to be bradycardic here, heart rate in the 30s to 40s range -Received a dose of atropine with minimal response in ED -received a 500 mL bolus of normal saline in ED -Blood pressure has been stable -Telemetry monitoring -Hold diltiazem (none given since admission 03/23); patient is also on a number of antipsychotic medications which could be contributing to his bradycardia though to a much lesser extent. Given his underlying behavioral issues would continue these meds for now -Cardiology consult by Dr. Grover appreciated; need pacemaker placement -Consult by Dr. Berry appreciated; single-lead pacemaker implantation this afternoon -Continue to monitor vital signs closely -Echo: EF=55-60%, G1DD, no RWMA, mild-moderate MR, mild-moderate AR, trace TR -Troponins noted with delta of 4 -Chest x-ray shows cardiomegaly and atelectasis at left lung base, patient has just completed a 10-day course of doxycycline for pneumonia -TSH-5.69 Status: Acute Code(s): R00.1 - Bradycardia, unspecified (2) Urinary retention: -Patient has known issues with urinary retention chronically; has been following up with Dr. Rai, had recent suprapubic catheter placement on 03/08/2019 -Continue to monitor urine output -continue Flomax -UA negative Status: Acute Code(s): R33.9 - Retention of urine, unspecified Additional A&P Information -Dementia with behavioral disturbance -Bipolar disorder -HTN; due to continued hypertension, amlodipine added -Chronic atrial fibrillation, not on AC likely due to hx of gross hematuria from bilateral hydronephrosis -Chronic pain; on hydrocodone -Chronic hyponatremia; baseline Na around 130 -Chronic normocytic anemia; baseline Hg is 10-11 -Hypomagnesemia; replacement ongoing -continue home meds as appropriate; list provided by MA -fall precautions, patient is WC-bound at baseline -cardiac diet as tolerated -DVT ppx with Lovenox; monitor for hematuria -Dispo: return to [facility] [place] -Code status: DNR/DNI; paperwork in chart Attestations Medical Necessity Statement*: Patient requires hospitalization for continued management of bradycardia, pending pacemaker placement Time Spent in Patient Care: Greater than 35 minutes (>than 50% of time spent in counselling and/or direct pt care on unit). Coding Level of Care Code Acute Bingo Worker for Arnold Fwd Exam Comprehensive Diagnoses Bradycardia R00.1 Urinary retention R33.9
--- NOTE | 2019-03-26 10:11 | P.PN_ITS ---
Subjective Subjective: Interval history: Matheus remains stable. His heart rates are still in the 30s and 40s primarily. Occasionally he drops down into the high 20s. He is never above 50. Cardizem has been held now for about 3 days. He is not really symptomatic however his heart rates have been quite low. Today he asked me when is the pacemaker going in ? Medications: Reviewed: Yes Vitals/I&O/Wt Last Vital Signs Temp 97.8 F 03/26/19 07:51 Pulse 55 L 03/26/19 09:59 Resp 11 L 03/26/19 07:51 BP 149/54 03/26/19 07:51 Pulse Ox 95 03/26/19 09:59 03/25/19 03/26/19 03/26/19 22:59 06:59 14:59 Intake Total 460 / 1020 Output Total 325 / 725 Balance 460 / 620 -325 / 295 Weight last 48 hrs Weight 145 lb 12.8 oz Weight 146 lb 9.6 oz Physical Exam Narrative: EXAM NARRATIVE: GENERAL: In general he is comfortable at rest HEENT: Exam within normal limits. NECK: Supple without jugular vein distention. The carotid upstroke is normal without bruits. BACK: Exam normal. LUNGS: Clear. HEART: Irregular rate and rhythm ABDOMEN: Benign without organomegaly or tenderness. EXTREMITIES: No edema. NEUROLOGIC: Exam normal. SKIN: Unremarkable. 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 He is still fairly profoundly bradycardic at times. I will have Dr. Berry see him and we will place a single-chamber wire in the VVI mode. He will be made n.p.o. 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
--- NOTE | 2019-03-26 10:38 | P.CONIM_ITS ---
Providers/Reason For Consult Consulting Physican/Specialty*: Dr. Berry, cardiothoracic surgery Reason for Consult*: Highly symptomatic, refractory bradycardia Chronic A. fib Requesting Physcian: Dr. Grover, cardiology Attending Physician: Yessi Xiong MD Primary Care Provider: Rambo Yepez History of Present Illness History of Present Illness Matheus Garibay JR is a 74 year old male is a very pleasant 74-year-old gentleman who is a resident of a local skilled care facility who was admitted with presentation of lethargy and noted bradycardia. His past medical history is rather extensive including chronic atrial fibrillation, hypertension, dementia, bipolar disorder, and urinary retention status post suprapubic catheter placement by Dr. Rai on a recent admission. Upon initial presentation, Dr. Grover from cardiology evaluated Mr. Garibay and was noted he was on Cardizem. This was discontinued, however, his bradycardia persists. Presently, at the time of my exam his heart rate is 37 while resting in the bed. After discussion with Dr. Grover, single-lead pacemaker implantation has been recommended. Review of Systems Const: Reports: fatigue and malaise; Denies: fever or chills Card: Reports: irregular heart rhythm, swelling of feet/ankles and lightheadedness; Denies: chest pain Resp: Reports: non-productive cough GI: Denies: abdominal pain : Reports: painful urination Meds/Allergies Home Medications and Allergies Home Medications Medication Instructions Recorded Confirmed Type acetaminophen 325 mg capsule 325 mg PO Q6H PRN 02/27/19 03/23/19 History buspirone 15 mg tablet 15 mg PO BID tab 02/27/19 03/23/19 History diltiazem HCl 240 mg capsule,24 240 mg PO QAM 02/27/19 03/23/19 History hr,extended release divalproex 125 mg tablet,delayed 125 mg PO BID 02/27/19 03/23/19 History release donepezil 10 mg tablet 10 mg PO DAILY 02/27/19 03/23/19 History furosemide 20 mg tablet 20 mg PO DAILY 02/27/19 03/23/19 History hydrocodone 5 mg-acetaminophen 325 1 tab PO Q4-5H PRN 02/27/19 03/23/19 History mg tablet lisinopril 20 mg tablet 20 mg PO DAILY 02/27/19 03/23/19 History magnesium 250 mg tablet 250 mg PO DAILY 02/27/19 03/23/19 History potassium chloride 10 mEq 10 meq PO DAILY 02/27/19 03/23/19 History capsule,extended release sennosides 8.6 mg capsule 8.6 mg PO BEDTIME PRN 02/27/19 03/23/19 History sertraline 50 mg tablet 50 mg PO DAILY 02/27/19 03/23/19 History tamsulosin 0.4 mg capsule 0.4 mg PO DAILY 02/27/19 03/23/19 History tizanidine 4 mg capsule 4 mg PO BID 02/27/19 03/23/19 History trazodone 100 mg tablet 100 mg PO BEDTIME 02/27/19 03/23/19 History bisacodyl 10 mg rectal suppository 10 mg NE DAILY PRN 03/02/19 03/23/19 History mirtazapine 7.5 mg tablet 7.5 mg PO BEDTIME tab 03/02/19 03/23/19 History polyethylene glycol 3350 17 gram 17 gm PO DAILY PRN 03/02/19 03/23/19 History oral powder packet Milk of Magnesia 30 ml PO DAILY PRN 03/06/19 03/23/19 History multivitamin 1 tab PO DAILY 03/06/19 03/23/19 History alprazolam [Xanax] 0.25 mg PO BID PRN 03/08/19 03/23/19 History Allergies Allergy/AdvReac Type Severity Reaction Status Date / Time morphine Allergy ADR-Halluci Verified 03/23/19 14:42 nating Current Medications Current Medications Generic Name Dose Route Start Last Admin Trade Name Freq PRN Reason Stop Dose Admin Hydrocodone Bitart/Acetaminophen 1 tab 03/23/19 17:23 03/26/19 09:40 [place] 5-325 Mg PO 1 tab Q4H PRN Administration MODERATE TO SEVERE PAIN Alprazolam 0.25 mg 03/23/19 17:34 03/25/19 21:45 Xanax PO 0.25 mg BID PRN Administration ANXIETY Amlodipine Besylate 5 mg 03/25/19 09:00 03/26/19 09:35 Norvasc PO 5 mg DAILY MELISSA Administration Atropine Sulfate 0.4 mg 03/23/19 21:30 03/26/19 02:19 Atropine IVP 0.4 mg PRN PRN Administration HEART RATE < 40/MIN Bisacodyl 10 mg 03/25/19 09:50 03/26/19 09:36 Bisac-Evac NE Not Given DAILY [facility] Buspirone HCl 15 mg 03/23/19 18:00 03/26/19 09:35 Buspar PO 15 mg BID MELISSA Administration Divalproex Sodium 125 mg 03/23/19 18:00 03/26/19 09:35 Depakote Sprinkles PO 125 mg BID MELISSA Administration Donepezil HCl 10 mg 03/23/19 21:00 03/25/19 21:10 Aricept PO 10 mg BEDTIME MELISSA Administration Enoxaparin Sodium 30 mg 03/23/19 17:30 03/25/19 18:21 Lovenox SUBCUT 30 mg Q24H MELISSA Administration Furosemide 20 mg 03/24/19 08:00 03/26/19 09:35 Lasix PO 20 mg DAILY@0800 MELISSA Administration Lisinopril 20 mg 03/24/19 09:00 03/26/19 09:35 Prinivil PO 20 mg DAILY MELISSA Administration Multivitamins Therapeutic 1 tab 03/24/19 09:00 03/26/19 09:35 Multivitamin Tab PO 1 tab DAILY MELISSA Administration Ondansetron HCl 4 mg 03/23/19 17:23 03/25/19 13:45 Zofran IVP 4 mg Q6H PRN Administration vomiting, or N/V if npo Senna 8.6 mg 03/25/19 21:00 03/25/19 21:10 Senna Lax PO 8.6 mg BEDTIME MELISSA Administration Tamsulosin HCl 0.4 mg 03/24/19 09:00 03/26/19 09:35 Flomax PO 0.4 mg DAILY MELISSA Administration Tizanidine HCl 4 mg 03/23/19 17:34 03/25/19 22:25 Zanaflex PO 4 mg BID PRN Administration SPASMS PFSH Acute PFSH: Medical History Alcoholism in remission Atrial fibrillation Bipolar disorder Contractures involving both knees Diabetes mellitus Generalized muscle weakness GERD (gastroesophageal reflux disease) History of fracture of femur Hypertension Major depressive disorder 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 Mother , 60 Cancer Social History Smoking and tobacco status: never smoked Alcohol intake: never Marital status: / Current occupational status: retired Vitals/I&O/Wt Last Vital Signs Temp 97.8 F 03/26/19 07:51 Pulse 55 L 03/26/19 09:59 Resp 11 L 03/26/19 07:51 BP 149/54 03/26/19 07:51 Pulse Ox 95 03/26/19 09:59 03/25/19 03/26/19 03/26/19 22:59 06:59 14:59 Intake Total 460 / 1020 240 / 240 Output Total 325 / 725 Balance 460 / 620 -325 / 295 240 / 240 Weight last 48 hrs Weight 145 lb 12.8 oz Weight 146 lb 9.6 oz Physical Exam Const: COMMON NORMALS: average body habitus GENERAL APPEARANCE: cooperative, comfortable and frail appearing NUTRITIONAL APPEARANCE: thin ORIENTATION/CONSCIOUSNESS: Yes awake, Yes oriented to person and Yes oriented to place; not oriented to time Chest: COMMONS NORMALS: inspection of chest normal Resp: COMMON NORMALS: normal respiratory effort, no use of accessory muscles and clear to auscultation bilaterally EFFORT & INSPECTION: Yes symmetric chest movement, Yes decreased respiratory effort and No tracheal deviation AUSCULTATION: clear to auscultation bilaterally and diminished lung sounds on the left in the lower lung sahu Cardio: COMMON NORMALS: S1 normal heart sound; negative for regular rhythm RATE: bradycardic RHYTHM: abnormal rhythm HEART SOUNDS: S1 normal Extremity: COMMON NORMALS: negative for normal to inspection (Bilateral lower extremity contractures at the knees which do relax somewhat) and negative for no pedal edema RIGHT LOWER EXTREMITY: Yes knee joint Neuro: SENSORIUM/ORIENTATION: Yes oriented to person, Yes oriented to place and No oriented to time A&P Assessment and plan (1) Bradycardia: Highly symptomatic, medically refractory bradycardia. Chronic atrial fibrillation. We will recommend single-lead pacemaker implantation, which has been tentatively scheduled for this afternoon. This was discussed with Mr. Garibay who is in agreement. He has a normal white count. H&H is stable. Chest x-ray reveals some elevation of left diaphragm and left lower lobe atelectasis though no other eufemia infiltrate. He does have some modest cardiomegaly. Echocardiogram reveals ejection fraction of about 50%. Status: Acute Code(s): R00.1 - Bradycardia, unspecified Consult Attestations Medical Necessity Statement: Medically refractory, highly symptomatic bradycardia Time Spent in Patient Care: Greater than 35 minutes Coding Level of Care Code New Pt Acute Manager Pharmacy for Chg Fwd Patient Type New History Expanded Problem Focused Exam Detailed Medical Decision Making Moderate Complexity Diagnoses Bradycardia R00.1 Time Spent (min) 40
[2019-03-26] MEDS: ALPRAZolam 0.25 mg Tablet PO ×2 (11:48→19:45)
[2019-03-26] MEDS: acetaminophen 325 mg Tablet 650 MG PO (11:50)
[2019-03-26 13:23] LABS: Anion Gap 14.7 (5-19); Blood Urea Nitrogen 20 mg/dL (8-23); Calcium 9.6 mg/dL (8.5-10.5); Carbon Dioxide 25 mmol/L (22-29); Chloride 95 mmol/L (98-107); Glucose 90 mg/dL (65-115); Magnesium 1.5 mg/dL (1.7-2.3); Osmolality Calculated 266 mOsm/kg (285-295); Potassium 4.7 mmol/L (3.5-5.1); Sodium 130 mmol/L (136-145)
--- NOTE | 2019-03-26 13:30 | PC.NURSE ---
MAGNESIUM GIVEN LATE DUE TO NEW MAGNESIUM LEVEL NEEDING TO BE DRAWN. TODAYS MAG LEVEL IS 1.5.
--- NOTE | 2019-03-26 16:21 | P.ANESASSM_ITS ---
Pre-Anesthetic Assessment Pre-Anesthetic Assessment: Height/Weight: Height 1.68 m Weight 66.134 kg Temp Pulse Resp BP Pulse Ox 98.2 F 57 L 18 154/82 94 03/26/19 15:41 03/26/19 15:41 03/26/19 15:41 03/26/19 15:41 03/26/19 15:41 Preop Diagnosis: Urethral erosion, chronic Pagan catheter Proposed Procedure: Operation Date: 03/26/19 16:00 Proposed Procedures p Single lead Pacemaker Insertion(Not Applicable) - Kirt Berry MD Familial anesthetic complications: None Was Beta Sean taken within 24 hours: N/A Last intake: Intake Last Liquid Date 03/26/19 Last Liquid Time 08:00 Last Solid Date 03/26/19 Last Solid Time 08:00 Social: Social History: No alcohol and No tobacco Exam: Pre-Anes Outpt Exam: alert, oriented x 3, clear to auscultation bilaterally and regular rate & rhythm Additional Exam Findings (including area of procedure): coarse breath csounds Airway: Cervical ROM: WNL MP: 3 Dentition: Full Pulmonary: Comments: Pneumonia (finished antibiotics) CV/HEM: CV/HEM: Afib, Arrythmia and HTN : : None reported Hepatic: Hepatic: None reported GI: GI: None reported Metabolic: Metabolic: None reported Musc/skel: Musc/skel: OA/DJD Neuropsych: Neuropsych: None reported Anesthetic Plan: ASA status: 4 Anesthesia: MAC Risk of > 500 ml blood loss (7ml/kg in children): No Meds/Allergies Current Medications: Current Medications Generic Name Dose Route Start Last Admin Trade Name Kalq PRN Reason Stop Dose Admin Acetaminophen 650 mg 03/23/19 17:23 03/26/19 11:50 Tylenol PO 650 mg Q6H PRN Administration Mild/Mod Pain Or Temp >/= 101 Hydrocodone Bitart /Acetaminophen 1 tab 03/23/19 17:23 03/26/19 09:40 [place] 5-325 Mg PO 1 tab Q4H PRN Administration MODERATE TO SEVER E PAIN Alprazolam 0.25 mg 03/23/19 17:34 03/26/19 11:48 Xanax PO 0.25 mg BID PRN Administration ANXIETY Amlodipine Besylat e 5 mg 03/25/19 09:00 03/26/19 09:35 Norvasc PO 5 mg DAILY MELISSA Administration Atropine Sulfate 0.4 mg 03/23/19 21:30 03/26/19 02:19 Atropine IVP 0.4 mg PRN PRN Administration HEART RATE < 40/M IN Bisacodyl 10 mg 03/25/19 09:50 03/26/19 09:36 Bisac-Evac [place] Not Given DAILY MELISSA Buspirone HCl 15 mg 03/23/19 18:00 03/26/19 09:35 Buspar PO 15 mg BID MELISSA Administration Divalproex Sodium 125 mg 03/23/19 18:00 03/26/19 09:35 Depakote Sprinkl es PO 125 mg BID MELISSA Administration Donepezil HCl 10 mg 03/23/19 21:00 03/25/19 21:10 Aricept PO 10 mg BEDTIME MELISSA Administration Furosemide 20 mg 03/24/19 08:00 03/26/19 09:35 Lasix PO 20 mg DAILY@0800 MELISSA Administration Lisinopril 20 mg 03/24/19 09:00 03/26/19 09:35 Prinivil PO 20 mg DAILY MELISSA Administration Multivitamins Ther apeutic 1 tab 03/24/19 09:00 03/26/19 09:35 Multivitamin Tab PO 1 tab DAILY MELISSA Administration Ondansetron HCl 4 mg 03/23/19 17:23 03/25/19 13:45 Zofran IVP 4 mg Q6H PRN Administration vomiting, or N/V if npo Senna 8.6 mg 03/25/19 21:00 03/25/19 21:10 Senna Lax PO 8.6 mg BEDTIME MELISSA Administration Tamsulosin HCl 0.4 mg 03/24/19 09:00 03/26/19 09:35 Flomax PO 0.4 mg DAILY MELISSA Administration Tizanidine HCl 4 mg 03/23/19 17:34 03/25/19 22:25 Zanaflex PO 4 mg BID PRN Administration SPASMS PFSH Anesthesia PFSH: Medical History Alcoholism in remission Atrial fibrillation Bipolar disorder Contractures involving both knees Diabetes mellitus Generalized muscle weakness GERD (gastroesophageal reflux disease) History of fracture of femur Hypertension Major depressive disorder 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 Mother , 60 Cancer Social History Smoking and tobacco status: never smoked Alcohol intake: never Marital status: / Current occupational status: retired Data Anesthesia CBC & Chem 7: 03/23/19 13:50 03/26/19 12:40 Other Labs: Laboratory Results - last 48 hr 03/26/19 12:40 Sodium 130 L Potassium 4.7 Chloride 95 L Carbon Dioxide 25 Anion Gap 14.7 BUN 20 Creatinine 0.9 Glucose 90 Calculated Osmolality 266 L Calcium 9.6 Magnesium 1.5 L Cardiac Studies: No Data to Display
--- NOTE | 2019-03-26 16:52 | SC_ITS ---
WS: [id number] C-arm FL for Pacemaker REASON FOR EXAM: pacemaker FINDINGS: Fluoroscopic evaluation time for insertion of a pacemaker 68.9 seconds SC/C-arm [place] for Pacemaker IMPRESSION: Fluoroscopic utilization for pacemaker insertion.
[2019-03-26] MEDS: sodium chloride 0.9% 1,000 ML 30 ML IV ×2 (16:55→19:51)
--- NOTE | 2019-03-26 18:31 | PM.OP ---
Operative Report Date of procedure: March 26, 2019 Pre-op Diagnosis: Highly symptomatic, medically refractory bradycardia; chronic atrial fibrillation Post-op diagnosis: same Procedure Done: Single-lead pacemaker implantation Implants: Right ventricular lead and pacemaker generator Pathology: none sent Surgeon: Kirt Berry Anesthesia: MAC Estimated blood loss (mL): 10 Complications: None: Post procedure chest x-ray pending Condition: stable Disposition: PACU Brief History: 74-year-old gentleman who is a resident of a local skilled care facility presented with highly symptomatic, medically refractory bradycardia. He has a history of chronic atrial fibrillation. He is been previously evaluated by Dr. Grover from our cardiology service. Single-lead pacemaker implantation has been recommended. His resting heart rate is in the mid 30s. He does not walk and has substantial lower extremity contractures. Details risk of procedure carefully discussed. Proper consents have been reviewed and signed. Procedure: Procedure: Mr. Garibay was taken to the OR suite and placed in the supine position over a shoulder roll. Careful protection of all pressure points was assured and support rolls under his legs were fashioned due to his lower extremity contractures. He received conscious sedation with continuous anesthesia monitoring by. His entire chest was sterilely prepped and draped. 1% lidocaine was infiltrated in the left subclavicular region. He has a very prominent and easily palpable subclavian artery on the left side which makes approach to the subclavian vein somewhat hazardous. Therefore, I elected to utilize hand-held ultrasonography to assist with visualization. His subclavian artery is quite large with his subclavian vein being inferior and deep to the artery. While in Trendelenburg position, utilizing modified seldinger technique and ultrasound guidance, a guidewire was placed in the left subclavian vein. This was confirmed in position by fluoroscopy. Next, after infiltration with lidocaine, a subcutaneous pocket was created beginning from the exit point of the guidewire and extending laterally and inferiorly. Cautery was utilized to create the pocket just above the pectoralis musculature. Hemostasis was confirmed. An antibiotic-soaked sponge was placed in the wound. A dilator and tear-away sheath was placed over the guidewire and advanced under fluoroscopy. Guidewire and dilator were removed. Next using a combination of curved and straight stylettes, the right ventricular lead was placed in position by fluoroscopy. The distal screw was extended. Interrogation was then performed confirming appropriate parameters. The tear-away sheath was then removed and the ventricular lead was sewn to the floor of the subcutaneous pocket. Pacing generator was brought into the field, and after confirmation of hemostasis in the subcutaneous pocket, the lead was connected to the generator with appropriate capture. The entire system was interrogated by fluoroscopy. Lead and generator were secured in the pocket. Sponge and needle count was correct. The wound was then closed in 2 layers of 3-0 Vicryl suture. Skin was reapproximated in a subcuticular manner with 4-0 Monocryl suture. A pressure dressing was applied. The left arm was placed in a sling. He has equal breath sounds bilaterally. He was then transferred to the PACU, where chest x-ray is currently pending. If chest x-ray reveals appropriate lead placement without pneumothorax, he will convalesce back on the cardiac stepdown [place]. Following are the specifics of this system: [employer] right ventricular lead is 58 cm and model 5076. Serial number [id number] Ventricular lead had sensing of 6.4 mV with an impedance of 475 ohms. Threshold was 0.5 V Generator: [employer] model # [id number] Serial #[id number]
[2019-03-26] MEDS: donepezil 5 MG Tablet 10 MG PO (19:13)
[2019-03-26] MEDS: tizanidine 4 mg Tablet PO (19:13)
[2019-03-26] MEDS: trazodone 100 mg Tablet PO (19:14)
--- NOTE | 2019-03-26 19:18 | PC.NURSE ---
Patient received from surgery via stretcher. Patient has pressure dressing in place to left upper chest. No s/s of bleeding or hematoma formation observed. Immobilizer in place. Patient c/o pain 09/16. Provided medication as ordered for pain. Also patient stated, i am ready to sleep . Administered scheduled medications so patient could rest as requested. Patient currently pacing at 70 bpm. Patient pleased with results. Will continue to monitor
[2019-03-27] VITALS (53 sets, daily range): BP systolic 129–169; BP diastolic 70–95; PULSE 65–96; RESP 0–24; TEMP 36.6–37.1; O2SAT 91–99
[2019-03-27] MEDS: HYDROcodone-acetaminophen 5-325 mg Tablet 1 TAB PO ×4 (02:38→14:52)
[2019-03-27 03:49] LABS: Basophils % 0.6 %; Eosinophils # 0.3 10^3/uL (0.0-0.8); Eosinophils % 4.6 %; Hematocrit 31.5 % (42.0-52.0); Hemoglobin 10.6 g/dL (11.7-16.6); Lymphocytes % 14.4 %; Mean Corpuscular HGB Conc 33.7 g/dL (30.0-36.0); Mean Corpuscular Volume 92.1 fL (80-94); Mean Platelet Volume 10.6 fL (7.4-10.4); Monocytes # 0.5 10^3/uL (0.2-0.9); Monocytes % 7.4 %; Neutrophils # 4.9 10^3/uL (1.8-7.7); Neutrophils % 72.9 %; Nucleated Red Blood Cells % 0 %; Platelet Count 155 10^3/cmm (130-400); Red Blood Count 3.42 10^6/uL (4.1-5.3); Red Cell Distribution Width 13.5 % (12.1-15.1); White Blood Count 6.8 10^3/uL (4.0-10.0)
[2019-03-27 04:12] LABS: Anion Gap 19.3 (5-19); Blood Urea Nitrogen 16 mg/dL (8-23); Calcium 9.4 mg/dL (8.5-10.5); Carbon Dioxide 21 mmol/L (22-29); Chloride 99 mmol/L (98-107); Glucose 61 mg/dL (65-115); Magnesium 1.5 mg/dL (1.7-2.3); Osmolality Calculated 274 mOsm/kg (285-295); Potassium 4.3 mmol/L (3.5-5.1); Sodium 135 mmol/L (136-145)
--- NOTE | 2019-03-27 05:39 | PC.NURSE ---
Patient is refusing to have EKG done at this time.
--- NOTE | 2019-03-27 05:51 | PC.NURSE ---
Patient refused to have ekg done this am due to pain. Explained to patient that it is not quite time for pain medication. Patient verbalized understanding. Patient has refused turning this evening due to pain to left side s/p pacemaker placement. Immobilizer remains in place. Patient refused to lie on back due to the pain that this causes him. Instructed patient on need to move to prevent skin damage. Patient stated, I hurt real bad right now.
--- NOTE | 2019-03-27 06:08 | P.PN_ITS ---
Subjective Subjective: Interval history: Nursing service reports uneventful night Postop day #1 status post single lead ventricular pacemaker implantation Heart rate 70 and paced Vitals/I&O/Wt Last Vital Signs Temp 97.8 F 03/27/19 04:00 Pulse 70 03/27/19 04:00 Resp 16 03/27/19 04:00 BP 155/70 03/27/19 04:00 Pulse Ox 98 03/27/19 04:00 03/26/19 03/26/19 03/27/19 14:59 22:59 06:59 Intake Total 240 / 240 208 / 448 Output Total 1000 / 1000 Balance 240 / 240 -792 / -552 Weight last 48 hrs Weight 153 lb Weight 145 lb 12.8 oz Physical Exam Chest: OTHER: Surgical dressing is dry. Left arm has been in an immobilizer overnight Will remove outer dressing. Data : 03/27/19 03:35 03/27/19 03:35 A&P Assessment and plan (1) Postsurgical cardiac pacemaker in situ: Postop day #1 status post pacemaker implantation for medically refractory highly symptomatic bradycardia I will remove outer dressing. Disposition per the medical service. Recommend follow-up in pacemaker clinic in 1 week. May remove inner dressing in 2 days. 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
--- NOTE | 2019-03-27 06:39 | PC.NURSE ---
Dr Berry in to see patient. removed pressure dressing from left shoulder. changed dressing underneath pressure dressing. Swelling observed to site. Interrogated pacemaker per Dr Berry request. Pain medication provided at this time.
--- NOTE | 2019-03-27 07:00 | P.PN_ITS ---
Subjective Subjective: Interval history: Matheus had his pacemaker placed yesterday afternoon. This was uneventful. No complications. No problems overnight. He says he hurts all over this morning. His shoulder is a little sore. Dr. Berry has seen him this morning and remove the outer bandage. Medications: Reviewed: Yes Vitals/I&O/Wt Last Vital Signs Temp 97.8 F 03/27/19 04:00 Pulse 70 03/27/19 04:00 Resp 16 03/27/19 04:00 BP 155/70 03/27/19 04:00 Pulse Ox 98 03/27/19 04:00 03/26/19 03/27/19 03/27/19 22:59 06:59 14:59 Intake Total 208 / 448 Output Total 1000 / 1000 250 / 1250 Balance -792 / -552 -250 / -802 Weight last 48 hrs Weight 153 lb Weight 145 lb 12.8 oz Physical Exam Narrative: EXAM NARRATIVE: GENERAL: Comfortable at rest HEENT: Exam within normal limits. NECK: Supple without jugular vein distention. The carotid upstroke is normal without bruits. BACK: Exam normal. LUNGS: Clear. HEART: Regular rate and rhythm. Paced ABDOMEN: Benign without organomegaly or tenderness. EXTREMITIES: No edema. Contractures of the legs NEUROLOGIC: Exam normal. SKIN: Unremarkable. Data : 03/27/19 03:35 03/27/19 03:35 A&P Assessment and plan (1) Hypertension: Status: Acute Code(s): I10 - Essential (primary) hypertension (2) Bipolar disorder: Status: Acute Code(s): F31.9 - Bipolar disorder, unspecified (3) Atrial fibrillation: Status: Acute Code(s): I48.91 - Unspecified atrial fibrillation (4) Bradycardia: Status: Acute Code(s): R00.1 - Bradycardia, unspecified Additional A&P Information [facility] after the [facility] are completed. He does not need to be placed back on diltiazem. He should be sent out on the home medications minus the diltiazem. 1 may consider adding Norvasc for his blood pressure. I would start at 5 mg a day. He should be sent to see the nurse practitioner in a week to 10 days for a wound check. The shoulder immobilizer should be used at night. The bandage should not be allowed to get wet until he is seen in follow-up. 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
--- NOTE | 2019-03-27 09:25 | PC.SOCIAL ---
IMM Page 2 of IMM explained to and signed by patient. Initialed, dated, and timed and placed in chart. Copy provided to patient.
--- NOTE | 2019-03-27 09:25 | P.DS_ITS ---
Discharge Providers Date of Admission: 03/24/19 15:34 Date of Discharge: March 27, 2019 Attending Provider at Admission: Yessi Xiong MD Attending Provider at Discharge: Yessi Xiong MD Primary Care Provider: Rambo Yepez Diagnoses at Discharge Discharge Diagnosis (1) Bradycardia: Status: Acute Problem details: -Patient noted to be bradycardic at group home, heart rate as low as 32, had complained of fatigue and was found to be lethargic and slower to respond; likely secondary to medication (Diltiazem) -Continues to be bradycardic here, heart rate in the 30s to 40s range -Received a dose of atropine with minimal response in ED -received a 500 mL bolus of normal saline in ED -Blood pressure has been stable -Telemetry monitoring -Hold diltiazem (none given since admission 03/23); patient is also on a number of antipsychotic medications which could be contributing to his bradycardia though to a much lesser extent. Given his underlying behavioral issues would continue these meds for now -Cardiology consult by Dr. Grover appreciated; needs pacemaker placement -Consult by Dr. Berry appreciated; single-lead pacemaker implantation on 03/26 -Continue to monitor vital signs closely -Echo: EF=55-60%, G1DD, no RWMA, mild-moderate MR, mild-moderate AR, trace TR -Troponins noted with delta of 4 -Chest x-ray shows cardiomegaly and atelectasis at left lung base, patient has just completed a 10-day course of doxycycline for pneumonia -TSH-5.69 (2) Hypertension: Status: Acute Problem details: -due to continued hypertension, amlodipine added. Continue this on discharge Qualifiers: Hypertension type: essential hypertension Qualified Code(s): I10 - Essential (primary) hypertension (3) Urinary retention: Status: Acute Problem details: -Patient has known issues with urinary retention chronically; has been following up with Dr. Rai, had recent suprapubic catheter placement on 03/08/2019 -Continue to monitor urine output -continue Flomax -UA negative Other Information Additional DC diagnoses/information: -Dementia with behavioral disturbance -Bipolar disorder -Chronic atrial fibrillation, not on AC likely due to hx of gross hematuria from bilateral hydronephrosis -Chronic pain; on hydrocodone -Chronic hyponatremia; baseline Na around 130 -Chronic normocytic anemia; baseline Hg is 10-11 -Hypomagnesemia; replaced Reason for Visit Reason for Visit: Reason For Visit: BRADYCARDIA Hospital Course Hospital Course: Patient was admitted to the cardiac stepdown unit secondary to noted bradycardia requiring close telemetry monitoring. This was initially thought to be caused by diltiazem with patient has been taking due to history of A. fib. However despite not giving any diltiazem during his hospital stay he had remained bradycardic with heart rates sometimes dropping down into the 20s. No improvement noted with doses of atropine. Cardiology was consulted and due to persistent bradycardia recommended single-lead pacemaker placement which was done yesterday afternoon by Dr. Berry. This was an uncomplicated procedure which patient tolerated well. Outer dressing was removed this morning by Dr. Berry. In a dressing will be discontinued in approximately 2 days. Shoulder immobilizer should be in place particularly at night. Patient has a paced rhythm on telemetry. Blood pressure has been gradually trending up so amlodipine has been added for more optimal blood pressure control. Patient will require follow-up at the pacemaker clinic in 1 week and with the cardiology nurse practitioner in 7 to 10 days for a wound check. In the interim he is to be seen by his primary care provider. Diltiazem has been discontinued from his medication list. Bandage in place should remain dry until patient follows up with nurse practitioner in 7 to 10 days. Patient has required supplemental oxygen during his hospital stay. This can be continued, currently set at 2 L but can be titrated as needed to maintain his saturation at or above 92% or for symptom management. Patient is to be discharged back to [facility] following the completion of his perioperative antibiotics. Discharge Summary: -Patient to follow-up with his primary care provider within 1 week -Patient to follow-up at pacemaker clinic in 1 week -Patient to follow-up with cardiology nurse practitioner in 7 to 10 days for wound check Physical Exam Const: COMMON NORMALS: no apparent distress, oriented x3 and alert GENERAL APPEARANCE: cooperative and comfortable ORIENTATION/CONSCIOUSNESS: Yes awake HENMT: COMMON NORMALS: normocephalic, head/scalp atraumatic, hearing grossly normal bilaterally and moist oral mucous membranes HEAD & SCALP: normocephalic and atraumatic Eye: COMMON NORMALS: PERRL, EOMs intact bilaterally and conjunctivae normal CONJUNCTIVA: Yes conjunctivae normal PUPIL: Yes PERRL Neck/C-Spine: COMMON NORMALS: full ROM GENERAL: Yes normal visual inspection and Yes trachea midline Chest: COMMONS NORMALS: inspection of chest normal OTHER: -clean/dry/intact dressing over pacemaker pocket Resp: COMMON NORMALS: normal respiratory effort, no retractions, no use of accessory muscles and clear to auscultation bilaterally EFFORT & INSPECTION: Yes able to speak in complete sentences, Yes symmetric chest movement and No tachypneic AUSCULTATION: clear to auscultation bilaterally OTHER: - currently on 2 L NC, 95% Cardio: COMMON NORMALS: regular rhythm, S1 normal heart sound, S2 normal heart sound and no murmurs RATE: bradycardic RHYTHM: regular rhythm HEART SOUNDS: S1 normal and S2 normal GI: COMMON NORMALS: normal to inspection, nondistended, normoactive bowel sounds, soft to palpation and non-tender PALPATION: Yes soft : BLADDER/KIDNEY EXAM: Yes catheter in place Extremity: COMMON NORMALS: normal to inspection, full ROM and no clubbing, cyanosis or edema; negative for no pedal edema OTHER: -contracted bilateral LEs -shoulder immobilizer in place Neuro: COMMON NORMALS: oriented x3, moves all extremities, no focal motor deficits and no sensory deficits noted SENSORIUM/ORIENTATION: Yes alert Psych: COMMON NORMALS: mental status grossly normal, thought process normal, cooperative, affect normal and speech normal SPEECH: Yes normal speech THOUGHT PROCESS: normal thought process Skin: COMMON NORMALS: no rashes or lesions noted, no jaundice, no petechiae and no mottling GENERAL SKIN EXAM: no rashes or lesions noted Discharge Data Data Completed and Pending: Completed Studies During Hospitalization Category Date Time Status XR chest 1V 98908 Routine Exams 03/26/19 Completed XR chest 1V scar ble [id number] Urgent Exams 03/23/19 14:49 Completed CV echo complete* [id number] Routine Ultrasound 03/23/19 17:22 Completed Labs from last 24 hours 03/27/19 03/27/19 03/26/19 03:35 03:35 12:40 WBC 6.8 RBC 3.42 L Hgb 10.6 L Hct 31.5 L MCV 92.1 MCH 31.0 MCHC 33.7 RDW 13.5 Plt Count 155 MPV 10.6 H Neut % (Auto) 72.9 Lymph % (Auto) 14.4 [place] % (Auto) 7.4 Eos % (Auto) 4.6 Baso % (Auto) 0.6 Neut # (Auto) 4.9 Lymph # (Auto) 1.0 [place] # (Auto) 0.5 Eos # (Auto) 0.3 Baso # (Auto) 0.0 Nucleated RBC % (a uto) 0 Nucleated RBCs # 0.0 Sodium 135 L 130 L Potassium 4.3 4.7 Chloride 99 95 L Carbon Dioxide 21 L 25 Anion Gap 19.3 H 14.7 BUN 16 20 Creatinine 0.9 0.9 Glucose 61 L 90 Calculated Osmolal ity 274 L 266 L Calcium 9.4 9.6 Magnesium 1.5 L 1.5 L Vitals: Last Vital Signs Temp 98.7 F 03/27/19 08:00 Pulse 92 03/27/19 08:05 Resp 18 03/27/19 08:05 BP 155/70 03/27/19 08:05 Pulse Ox 96 03/27/19 08:05 Discharge Plan Discharge Patient Disposition: Xfer SNF Condition: Stable Prescriptions: New amlodipine 5 mg Tablet 5 mg PO DAILY 30 Days Qty: 30 RF: 0 Continued bisacodyl 10 mg suppository 10 mg IN DAILY PRN (Reason: CONSTIPATION) RF: 0 polyethylene glycol 3350 [Miralax] 17 gram powder in packet 17 gm PO DAILY PRN (Reason: Constipation) RF: 0 lisinopril 20 mg tablet 20 mg PO DAILY RF: 0 tamsulosin 0.4 mg capsule 0.4 mg PO DAILY RF: 0 buspirone 15 mg tablet 15 mg PO BID RF: 0 divalproex 125 mg tablet,delayed release (DR/EC) 125 mg PO BID RF: 0 furosemide 20 mg tablet 20 mg PO DAILY RF: 0 magnesium 250 mg tablet 250 mg PO DAILY RF: 0 potassium chloride 10 mEq capsule, extended release 10 meq PO DAILY RF: 0 senna 8.6 mg capsule 8.6 mg PO BEDTIME PRN (Reason: CONSTIPATION) RF: 0 sertraline 50 mg tablet 50 mg PO DAILY RF: 0 trazodone 100 mg tablet 100 mg PO BEDTIME RF: 0 hydrocodone-acetaminophen [[place]] 5-325 mg tablet 1 tab PO Q4-5H PRN (Reason: Pain) RF: 0 donepezil 10 mg tablet 10 mg PO DAILY RF: 0 acetaminophen [Tylenol] 325 mg capsule 325 mg PO Q6H PRN (Reason: BREAK THROUGH PAIN) RF: 0 tizanidine 4 mg capsule 4 mg PO BID RF: 0 mirtazapine 7.5 mg tablet 7.5 mg PO BEDTIME RF: 0 Milk of Magnesia 30 ml PO DAILY PRN (Reason: Constipation) RF: 0 multivitamin 1 tab PO DAILY RF: 0 alprazolam [Xanax] 0.25 mg Tablet 0.25 mg PO BID PRN (Reason: Anxiety) RF: 0 Discontinued diltiazem HCl 240 mg capsule,extended release 24 hr 240 mg PO QAM RF: 0 Discharge Orders: Discharge Order (Routine); Ordered 03/27/19 Ordered By: Yessi Xiong Referrals: [facility] [Outside] Tianna Blevins FNP [Family Provider] - 4-7 days (Post-hospital follow up; had pacemaker placed) Nora Cortes FNP [Nurse Practitioner] - 7-10 days (wound check s/p pacemaker placement) Discharge Diet: Regular Discharge Activity: Resume usual activity Activity Restrictions/Additional Instructions: -Patient needs to follow up at pacemaker clinic in 1 week Discharge Attestations Time Spent in Discharge Care*: greater than 30 min Specific Discharge Activities: Specific discharge activities: educating patient, discussing with pcp/other providers, discussing with disease case manager/social workers/dc planners, documenting/other paperwork and evaluating patient/reviewing data Status at Discharge: Cognitive status at discharge: cognitively intact , Behavioral status at discharge: cooperative , Functional status at discharge: other assisted ambulation Overall status at discharge: patient is back to baseline Quality Metrics Clinical Quality Measures During this hospital stay, did patient experience: None Coding Level of Care Code Acute Social Media Marketing Manager for [facility] Fwd Exam Comprehensive Diagnoses Bradycardia R00.1 Hypertension I10 Hypertension type: essential hypertension Urinary retention R33.9
[2019-03-27] MEDS: sertraline 50 mg Tablet PO (09:35)
[2019-03-27] MEDS: divalproex Sprinkles 125 mg Capsule PO (09:35)
[2019-03-27] MEDS: multivitamin therapeutic Tablet 1 TAB PO (09:35)
[2019-03-27] MEDS: lisinopril 20 mg Tablet PO (09:35)
[2019-03-27] MEDS: tamsulosin 0.4 mg Capsule PO (09:35)
[2019-03-27] MEDS: FUROsemide 20 mg Tablet PO (09:36)
[2019-03-27] MEDS: amlodipine 5 mg Tablet PO (09:36)
[2019-03-27] MEDS: magnesium sulfate premix 2 GM/50 ML PIGGYBACK IV (10:48)
--- NOTE | 2019-03-27 13:58 | ANE.PACU2 ---
 Inpatient post-anesthesia follow up: Airway intact: Yes Vital signs: Temperature 98.7 F Pulse Rate [Monito r] 103 Pulse Rate 88 Respiratory Rate 24 Blood Pressure [Le ft Arm] 90/49 Blood Pressure 154/75 Pulse Oximetry 96 Oxygen Delivery Me thod [ Nasal Cannula Current Rate & Del campos] Oxygen Delivery Me thod Nasal Cannula Oxygen Flow Rate [ Current Rate 2 & Delivery] Oxygen Flow Rate 3 Fraction of Inspir ed Oxygen Hydration adequate: Yes Nausea and vomiting: No Mental status: Baseline
== END 2019-03-27 16:18 | disposition skilled nursing facility (03) | DRG 243 ==
LOC: ER 14:57 → CSU 16:24
PROVIDERS: Thoracic Surgery (Cardiothoracic Vascular Surgery); Admitting Provider Family Medicine; Emergency Provider Emergency Medicine; Family Provider Nurse Practitioner Family; PCP Family Medicine; Visit Provider Family Medicine
PROC: 0JH604Z Insertion of Pacemaker, Single Chamber into Chest Subcutaneous Tissue and Fascia, Open Approach (ICD-10-PCS; principal; 2019-03-26 16:00)
DX: R00.1 Bradycardia, unspecified (principal); E87.1 Hypo-osmolality and hyponatremia; F03.91 Unspecified dementia, unspecified severity, with behavioral disturbance; T83.89XA Other specified complication of genitourinary prosthetic devices, implants and grafts, initial encounter; R33.9 Retention of urine, unspecified; I48.20 Chronic atrial fibrillation, unspecified; D64.9 Anemia, unspecified; I10 Essential (primary) hypertension; F31.9 Bipolar disorder, unspecified; G89.29 Other chronic pain; Z79.891 Long term (current) use of opiate analgesic; Z88.5 Allergy status to narcotic agent; N36.8 Other specified disorders of urethra; Z66 Do not resuscitate; I48.91 Unspecified atrial fibrillation; T46.1X5A Adverse effect of calcium-channel blockers, initial encounter; I08.0 Rheumatic disorders of both mitral and aortic valves; F10.21 Alcohol dependence, in remission; X58.XXXA Exposure to other specified factors, initial encounter
CPT/HCPCS: 12345; 36415; 36416; 71045; 76000; 80048; 80053; 80164; 81003; 83735; 83880; 84443; 84484; 85025; 85610; 93005; 93306; 96372; 96375; 99283; C1786; C1898; G0378; J0461; J0690; J1650; J2001; J2405; J2704; J3010; J3475; J7030; J7040

== ENCOUNTER 2019-03-29 09:46 | Emergency (ER) | payer MEDICARE, MEDICAID, SELFPAY ==
[2019-03-29 09:09] VITALS: BP 106/65; PULSE 80; RESP 20; TEMP 36.6; O2SAT 91; BMI 21.5
--- NOTE | 2019-03-29 09:10 | ED_ITS ---
Entered by Nidia Valles, acting as scribe for Marylou Torre MD HPI - Altered Mental Status General: Chief Complaint: Altered Mental Status Stated Complaint: ALTERED MENTAL STATUS Time Seen by Provider: 03/29/19 09:10 Source: patient and EMS Mode of arrival: EMS Limitations: physical limitation History of Present Illness: HPI narrative: 74 yo male presents with altered mental status. 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 in the ED the pt states he just has pain from site when he had his pacemaker placed last week. per EMS pt was alert on the trip to the ED. pt denies any other symptoms at this time. complaint: altered mental status (per nursing staff) and weakness Onset (ago): day(s) (today) Timing confirmed by: other (nursing staff) Severity: mild Consistency of symptoms: Getting Worse Associated symptoms: Reports no associated symptoms; Deny depression Review of Systems General: Reports: 10 or more systems reviewed and unremarkable except in HPI and below Const: Denies: fever, chills, body aches or change in appetite Eyes: Denies: blurry vision or eye discomfort ENMT: Denies: throat pain or dental pain Card: Denies: chest pain Resp: Denies: shortness of breath GI: Denies: abdominal pain, nausea, vomiting or diarrhea : Denies: painful urination Musc: Denies: neck pain or back pain Skin/Breast: Denies: rash Neuro: Denies: headache Psych: Denies: depression Pedro/Lymph: Denies: easy bruising All/Imm: Denies: hives PFS ED PFSH: Medical History Alcoholism in remission Atrial fibrillation Bipolar disorder Contractures involving both knees Diabetes mellitus Generalized muscle weakness GERD (gastroesophageal reflux disease) History of fracture of femur Hypertension -due to continued hypertension, amlodipine added. 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 Rai, had recent suprapubic catheter placement on 03/08/2019 -Continue to monitor urine output -continue Flomax -UA negative Surgical History S/P tonsillectomy Status post amputation of toe Family History Father , 80 No problems noted. Mother , 60 Cancer Social History Smoking and tobacco status: never smoked Alcohol intake: never Marital status: / Current occupational status: retired Physical Exam Const: COMMON NORMALS: no apparent distress, oriented x3 and healthy appearing HENMT: COMMON NORMALS: normocephalic and head/scalp atraumatic HEAD & SCALP: normocephalic and atraumatic Eye: COMMON NORMALS: PERRL and EOMs intact bilaterally PUPIL: Yes PERRL Neck/C-Spine: COMMON NORMALS: full ROM and supple Chest: COMMONS NORMALS: inspection of chest normal and palpation of chest normal Resp: COMMON NORMALS: normal respiratory effort, no retractions, no use of accessory muscles and clear to auscultation bilaterally AUSCULTATION: clear to auscultation bilaterally Cardio: COMMON NORMALS: regular rate, regular rhythm and no murmurs RATE: regular rate RHYTHM: regular rhythm GI: COMMON NORMALS: normal to inspection, nondistended, normoactive bowel sounds, soft to palpation, non-tender and no masses PALPATION: Yes soft Extremity: COMMON NORMALS: normal to inspection and full ROM Neuro: COMMON NORMALS: oriented x3 Psych: COMMON NORMALS: mental status grossly normal, thought process normal and cooperative THOUGHT PROCESS: normal thought process Skin: COMMON NORMALS: no rashes or lesions noted and no wounds GENERAL SKIN EXAM: no rashes or lesions noted Course Vital Signs: Vital signs: Vital Signs Temperature 97.8 F 03/29/19 09:09 Pulse Rate 91 03/29/19 09:52 Respiratory Rate 17 03/29/19 09:52 Blood Pressure 106/65 03/29/19 09:09 Pulse Oximetry 98 03/29/19 09:52 MDM - Altered Mental Status MDM Narrative: Medical decision making narrative: Patient presents here from jail. I spoke to patient care director home sent like patient may have accidentally overdosed on his opioids. He become unresponsive there and had pinpoint pupils. Patient was given Narcan at jail before being transferred here. Per EMS shortly thereafter he regained consciousness and he has been normal his whole time here. He does have a urinary tract infection. No signs of stroke and other work-up is normal. Patient stable for discharge back to jail and will start on antibiotics. He is to return if worsening. Lab Data: Labs: Lab Results 03/29/19 03/29/19 03/29/19 Range/Units 09:24 09:24 09:24 WBC 7.2 (4.0-10.0) 10^3/ uL RBC 3.35 L (4.1-5.3) 10^6/u L Hgb 10.5 L (11.7-16.6) g/dL Hct 31.0 L (42.0-52.0) % MCV 92.5 (80-94) fL MCH 31.3 (28.0-34.0) pg MCHC 33.9 (30.0-36.0) g/dL RDW 13.9 (12.1-15.1) % Plt Count 170 (130-400) 10^3/c mm MPV 10.4 (7.4-10.4) fL Neut % (Auto) 71.4 % Lymph % (Auto) 14.3 % Preston % (Auto) 7.1 % Eos % (Auto) 6.5 % Baso % (Auto) 0.4 % Neut # (Auto) 5.2 (1.8-7.7) 10^3/u L Lymph # (Auto) 1.0 (0.8-4.8) 10^3/u L Preston # (Auto) 0.5 (0.2-0.9) 10^3/u L Eos # (Auto) 0.5 (0.0-0.8) 10^3/u L Baso # (Auto) 0.0 (0.0-0.1) 10^3/u L Nucleated RBC % (a uto) 0 % Nucleated RBCs # 0.0 /100WBC PT 16.70 H (10.5-13.3) SECO NDS INR 1.31 H (0.8-1.2) Sodium 134 L (136-145) mmol/L Potassium 3.9 (3.5-5.1) mmol/L Chloride 96 L (98-107) mmol/L Carbon Dioxide 25 (22-29) mmol/L Anion Gap 16.9 (5-19) BUN 11 (8-23) mg/dL Creatinine 0.7 (0.7-1.2) mg/dL Glucose 120 H (65-115) mg/dL Calcium 9.5 (8.5-10.5) mg/dL Total Bilirubin 0.7 (0.15-1.2) mg/dL AST 30 (0-40) U/L ALT 9 (0-41) U/L Alkaline Phosphata se 67 (40-130) IU/L Troponin T Baselin e (0-15) ng/mL Troponin T 120 Min [place] (0-15) ng/mL Delta Troponin T (0-10) ABS# Total Protein 6.5 L (6.6-8.7) g/dL Albumin 2.9 L (3.5-5.2) g/dL Globulin 3.6 (1.3-4.6) g/dL Urine Color (Yellow) Urine Appearance (CLEAR) Urine pH (5-7) Ur Specific Gravit y (1.005-1.030) Urine Protein (Negative) Urine Glucose (UA) (Normal) Urine Ketones (Negative) Urine Blood (Negative) Urine Nitrate (Negative) Urine Bilirubin (NEGATIVE) Urine Urobilinogen (Negative) mg/dL Ur Leukocyte Uma ase (Negative) Urine RBC (0-2) /hpf Urine WBC (0-5) /hpf Ur Squamous Epith Cells (0-5) Urine Bacteria (NONE) 03/29/19 03/29/19 03/29/19 Range/Units 09:24 10:05 11:51 WBC (4.0-10.0) 10^3/ uL RBC (4.1-5.3) 10^6/u L Hgb (11.7-16.6) g/dL Hct (42.0-52.0) % MCV (80-94) fL MCH (28.0-34.0) pg MCHC (30.0-36.0) g/dL RDW (12.1-15.1) % Plt Count (130-400) 10^3/c mm MPV (7.4-10.4) fL Neut % (Auto) % Lymph % (Auto) % Preston % (Auto) % Eos % (Auto) % Baso % (Auto) % Neut # (Auto) (1.8-7.7) 10^3/u L Lymph # (Auto) (0.8-4.8) 10^3/u L Preston # (Auto) (0.2-0.9) 10^3/u L Eos # (Auto) (0.0-0.8) 10^3/u L Baso # (Auto) (0.0-0.1) 10^3/u L Nucleated RBC % (a uto) % Nucleated RBCs # /100WBC PT (10.5-13.3) SECO NDS INR (0.8-1.2) Sodium (136-145) mmol/L Potassium (3.5-5.1) mmol/L Chloride (98-107) mmol/L Carbon Dioxide (22-29) mmol/L Anion Gap (5-19) BUN (8-23) mg/dL Creatinine (0.7-1.2) mg/dL Glucose (65-115) mg/dL Calcium (8.5-10.5) mg/dL Total Bilirubin (0.15-1.2) mg/dL AST (0-40) U/L ALT (0-41) U/L Alkaline Phosphata se (40-130) IU/L Troponin T Baselin e 43 H (0-15) ng/mL Troponin T 120 Min [place] 52.68 H (0-15) ng/mL Delta Troponin T 9.68 (0-10) ABS# Total Protein (6.6-8.7) g/dL Albumin (3.5-5.2) g/dL Globulin (1.3-4.6) g/dL Urine Color Yellow (Yellow) Urine Appearance Sl hazy (CLEAR) Urine pH 6.0 (5-7) Ur Specific Gravit y 1.015 (1.005-1.030) Urine Protein Trace (Negative) Urine Glucose (UA) Norm (Normal) Urine Ketones Negative (Negative) Urine Blood 2+ H (Negative) Urine Nitrate Positive H (Negative) Urine Bilirubin Neg (NEGATIVE) Urine Urobilinogen Norm (Negative) mg/dL Ur Leukocyte Uma ase 2+ H (Negative) Urine RBC 10-15 H (0-2) /hpf Urine WBC >100 H (0-5) /hpf Ur Squamous Epith Cells 0-4 H (0-5) Urine Bacteria 1+ H (NONE) Imaging Data^: CXR: Radiologist's impression: Ordering Provider/Ordering MD: Marylou Torre MD Date of Service: 03/29/19 Procedure(s): XR chest 1V portable [id number] Accession Number(s): [id number] Report Number: [id number] WS: [id number] XR chest 1V portable [id number] REASON FOR EXAM: syncope FINDINGS: The left lingula atelectasis has resolved. Cardiomegaly with arteriosclerotic changes are again noted. A single electrode pacemaker with the wiring satisfactory. There is a small amount of right pleural effusion obliterating the costophrenic angle. XR/XR chest 1V portable [id number] IMPRESSION: Small amount of right pleural effusion. Resolved lingula atelectasis. Single electrode pacemaker extends from the left side. Cardiomegaly. EKG Data^: EKG 1: Attestation: I personally reviewed and interpreted this EKG as follows: EKG interpretation date: 03/29/19 EKG interpretation time: 09:25 Interpretation: paced rhythm hr [address] or t wave abnormalities qrs 182 qtc 532 EKG 2: Attestation: I personally reviewed and interpreted this EKG as follows: EKG interpretation date: 03/29/19 EKG interpretation time: 11:12 Interpretation: paced rhythm [address] or t wave abnormalities Discharge Plan Discharge Patient Disposition: Home, Self-Care Clinical Impression: Urinary tract infection Qualifiers: Urinary tract infection type: acute cystitis Hematuria presence: without hematuria Qualified Code(s): N30.00 - Acute cystitis without hematuria Condition: Stable Prescriptions: New Macrobid 100 mg capsule 100 mg PO BID 7 Days Qty: 14 RF: 0 No Action bisacodyl 10 mg suppository 10 mg HI DAILY PRN (Reason: CONSTIPATION) RF: 0 polyethylene glycol 3350 [Miralax] 17 gram powder in packet 17 gm PO DAILY PRN (Reason: Constipation) RF: 0 lisinopril 20 mg tablet 20 mg PO DAILY RF: 0 buspirone 15 mg tablet 15 mg PO BID RF: 0 divalproex 125 mg tablet,delayed release (DR/EC) 125 mg PO BID RF: 0 furosemide 20 mg tablet 20 mg PO DAILY RF: 0 magnesium 250 mg tablet 250 mg PO DAILY RF: 0 potassium chloride 10 mEq capsule, extended release 10 meq PO DAILY RF: 0 senna 8.6 mg capsule 8.6 mg PO DAILY PRN (Reason: CONSTIPATION) RF: 0 sertraline 50 mg tablet 50 mg PO DAILY RF: 0 trazodone 100 mg tablet 100 mg PO BEDTIME RF: 0 hydrocodone-acetaminophen [[place]] 5-325 mg tablet 1 tab PO Q4-5H PRN (Reason: Pain) RF: 0 donepezil 10 mg tablet 10 mg PO DAILY RF: 0 acetaminophen [Tylenol] 325 mg capsule 325 mg PO Q6H PRN (Reason: BREAK THROUGH PAIN) RF: 0 tizanidine 4 mg capsule 4 mg PO BID RF: 0 mirtazapine 7.5 mg tablet 7.5 mg PO BEDTIME RF: 0 Milk of Magnesia 30 ml PO DAILY PRN (Reason: Constipation) RF: 0 multivitamin 1 tab PO DAILY RF: 0 alprazolam [Xanax] 0.25 mg Tablet 0.25 mg PO BID PRN (Reason: Anxiety) RF: 0 amlodipine 5 mg Tablet 5 mg PO DAILY 30 Days Qty: 30 RF: 0 diltiazem HCl 240 mg Capsule,Extended Release 24 Hr 240 mg PO DAILY RF: 0 Discharge Orders: Discharge Order (Routine); Ordered 03/29/19 Ordered By: Marylou Torre Referrals: Tianna Blevins, JOSE [Family Provider] - Rambo Yepez [Primary Care Provider] - Discharge Diet: Advance as tolerated Discharge Activity: Resume usual activity Patient Instructions: Urinary Tract Infection in Men (ED) Coding Level of Care Code ED Chemical Dependency Attendant for Chg Fwd Exam Comprehensive The documentation recorded by the Hai caballero Bridget Annette, accurately reflects the service I personally performed and the decisions made by Yelitza thomas Korby, MD Mar 29, 2019 09:46
--- NOTE | 2019-03-29 09:13 | XR_ITS ---
WS: [id number] XR chest 1V portable [id number] REASON FOR EXAM: syncope FINDINGS: The left lingula atelectasis has resolved. Cardiomegaly with arteriosclerotic changes are again noted. A single electrode pacemaker with the wiring satisfactory. There is a small amount of right pleural effusion obliterating the costophrenic angle. XR/XR chest 1V portable [id number] IMPRESSION: Small amount of right pleural effusion. Resolved lingula atelectasis. Single electrode pacemaker extends from the left side. Cardiomegaly.
[2019-03-29 09:32] LABS: Basophils % 0.4 %; Eosinophils # 0.5 10^3/uL (0.0-0.8); Eosinophils % 6.5 %; Hemoglobin 10.5 g/dL (11.7-16.6); Lymphocytes % 14.3 %; Mean Corpuscular HGB Conc 33.9 g/dL (30.0-36.0); Mean Corpuscular Hemoglobin 31.3 pg (28.0-34.0); Mean Corpuscular Volume 92.5 fL (80-94); Mean Platelet Volume 10.4 fL (7.4-10.4); Monocytes # 0.5 10^3/uL (0.2-0.9); Monocytes % 7.1 %; Neutrophils # 5.2 10^3/uL (1.8-7.7); Neutrophils % 71.4 %; Nucleated Red Blood Cells % 0 %; Platelet Count 170 10^3/cmm (130-400); Red Blood Count 3.35 10^6/uL (4.1-5.3); Red Cell Distribution Width 13.9 % (12.1-15.1); White Blood Count 7.2 10^3/uL (4.0-10.0)
--- NOTE | 2019-03-29 09:39 | CT_ITS ---
WS: [id number] CT HEAD TECHNIQUE: Noncontrast CT of the head obtained from the skullbase to the vertex. CLINICAL INFORMATION: ams COMPARISON: None. DLP: 343.[address] scans at [facility] use at least one of these dose optimization techniques: automat ed exposure control; mA and/or kV adjustment per patient size (includes targeted exams where dose is matched to clinical indication); or iterative reconstruction. FINDINGS: No evidence of intracranial hemorrhage or mass effect. Ventricular system and basal cisterns are henry nt. Moderate small vessel changes with moderate parenchymal volume loss. No extra-axial fluid collections. No evidence of mass or mass effect. Normal salazar-white differentiati on. Paranasal sinuses and mastoid air cells are well aerated. .Normal visualized soft tissues. Attempted notification Maryluo Torre MD at 03/29/2019 12:[address]/CT head wo con* [id number] IMPRESSION: 1. No evidence of intracranial hemorrhage or mass effect. 2. Moderate small vessel changes with moderate parenchymal volume loss. 3. Intracranial vascular calcification. 4. Some images degraded by motion.
[2019-03-29 09:40] LABS: INR 1.31 (0.8-1.2)
[2019-03-29 09:50] LABS: Alanine Aminotransferase 9 U/L (0-41); Albumin Level 2.9 g/dL (3.5-5.2); Alkaline Phosphatase 67 IU/L (40-130); Anion Gap 16.9 (5-19); Aspartate Amino Transferase 30 U/L (0-40); Blood Urea Nitrogen 11 mg/dL (8-23); Calcium 9.5 mg/dL (8.5-10.5); Carbon Dioxide 25 mmol/L (22-29); Chloride 96 mmol/L (98-107); Creatinine Clr Calc Pharmacy 80.1391; Globulin 3.6 g/dL (1.3-4.6); Glucose 120 mg/dL (65-115); Potassium 3.9 mmol/L (3.5-5.1); Sodium 134 mmol/L (136-145); Total Bilirubin 0.7 mg/dL (0.15-1.2); Total Protein 6.5 g/dL (6.6-8.7)
[2019-03-29 09:52] VITALS: PULSE 91; RESP 17; O2SAT 98
[2019-03-29 09:52] LABS: Troponin(5th) Baseline 43 ng/mL (0-15)
[2019-03-29 10:28] LABS: Bilirubin Urine Neg (NEGATIVE); Blood Urine 2+ (Negative); Glucose Urine UA Norm (Normal); Ketones Urine Negative (Negative); Leukocyte Esterase Urine 2+ (Negative); Nitrate Urine Positive (Negative); Protein Urine Trace (Negative); Specific Gravity, Urine 1.015 (1.005-1.030); Urine Appearance SL Hazy (CLEAR); Urine Color Yellow (Yellow); Urobilinogen Urine Norm (Negative)
[2019-03-29 10:30] LABS: Add Urine Culture? Yes; Bacteria Urine 1+; Squamous Epithelial Cell Urine 0-4 (0-5); WBC Urine >100 /hpf (0-5)
--- NOTE | 2019-03-29 11:13 | ECG_ITS ---
Measurements Intervals [place] Rate: 69 P: IA: 0 QRS: -89 QRSD: 182 T: 88 QT: 512 QTc: 552 ELECTRONIC VENTRICULAR PACEMAKER ABNORMAL RHYTHM ECG Compared to ECG 03/24/2019 09:28:31 Atrial fibrillation no longer present Electronically Signed On 03-29-2019 19:10:25 MICROBIOLOGY SOIL SCIENTIST by Karla Chun M.D. [email or web address]
[2019-03-29 12:20] LABS: Troponin 5 2HR 52.68 ng/mL (0-15); Troponin 5 2HR Delta 9.68 ABS# (0-10)
[2019-03-29] MEDS: cefTRIAXone 1,000 MG in sodium chloride 0.9% (plus) 50 ML 100 MG IV (13:00)
--- NOTE | 2019-03-29 13:13 | PC.NURSE ---
report guzman to [facility]
[2019-03-29 13:16] VITALS: BP 124/72; PULSE 70; RESP 17; O2SAT 94
--- NOTE | 2019-03-29 13:40 | PC.NURSE ---
informed doc pt would like pain meds
[2019-03-29] MEDS: HYDROcodone-acetaminophen 5-325 mg Tablet 1 TAB PO (13:54)
--- NOTE | 2019-03-29 15:13 | ECG_ITS ---
Measurements Intervals [place] Rate: 71 P: MD: 0 QRS: 266 QRSD: 177 T: 83 QT: 500 QTc: 545 ELECTRONIC VENTRICULAR PACEMAKER ABNORMAL RHYTHM ECG Compared to ECG 03/24/2019 09:28:31 Atrial fibrillation no longer present Electronically Signed On 03-29-2019 19:09:53 MANAGER LABOR DELIVERY by Karla Chun M.D. [email or web address]
--- NOTE | 2019-03-31 13:03 | PC.NURSE ---
urine culture was positive for E-Coli ESBL. Dr. Gisela COTA, called Jaky at [facility] a relayed this information to her as well and sent culture results via fax.
== END 2019-03-29 14:49 | disposition home or self-care (01) ==
PROVIDERS: Emergency Provider Emergency Medicine; Family Provider Nurse Practitioner Family; PCP Family Medicine
DX: N39.0 Urinary tract infection, site not specified (principal); I48.91 Unspecified atrial fibrillation; E11.9 Type 2 diabetes mellitus without complications; I10 Essential (primary) hypertension; Z95.0 Presence of cardiac pacemaker
CPT/HCPCS: 36415; 70450; 71045; 80053; 81001; 84484; 85025; 85610; 87077; 87086; 87186; 93005; 96365; 99282; 99284; J0696

== ENCOUNTER 2021-05-02 23:23 | Inpatient (IN) | payer MEDICARE, MEDICAID, SELFPAY ==
[2021-05-02 23:31] VITALS: BP 119/65; PULSE 81; RESP 17; TEMP 37.3; O2SAT 95; BMI 21.5
--- NOTE | 2021-05-02 23:40 | CTR_ITS ---
PROCEDURE INFORMATION: Exam: CT Abdomen And Pelvis With Contrast Exam date and time: 05/03/2021 12:38 AM Age: 76 years old Clinical indication: Nausea and vomiting; Patient HX: Coffee ground emesis; Additional info: Vomiting gi bleeding TECHNIQUE: Imaging protocol: Computed tomography of the abdomen and pelvis with contrast. Radiation optimization: All CT scans at this facility use at least one of these dose optimization techniques: automated exposure control; mA and/or kV adjustment per patient size (includes targeted exams where dose is matched to clinical indication); or iterative reconstruction. Contrast material: OMNI 300; Contrast volume: 95 ml; Contrast route: INTRAVENOUS (IV); COMPARISON: [place] Abdomen[place]vis [place] [id number] 09/13/2018 10:14 AM RADIATION DOSE METRICS: Total DLP (mGy-cm): 1433.59 FINDINGS: Tubes, catheters and devices: Percutaneous suprapubic bladder catheter. Lungs: Compressive atelectasis in both lower lobes. Pleural spaces: Moderate to large right pleural fluid collection with moderate left pleural fluid collection. Heart: Mild cardiomegaly. Severe calcified coronary artery disease. Liver: Normal. No mass. Gallbladder and bile ducts: Normal. No calcified stones. No ductal dilation. Pancreas: Normal. No ductal dilation. Spleen: Normal. No splenomegaly. Adrenal glands: Normal. No mass. Kidneys and ureters: Normal. No hydronephrosis. Stomach and bowel: Moderate retained feces in the rectum. Collapsed stomach which otherwise appears normal. Appendix: No evidence of appendicitis. Intraperitoneal space: Unremarkable. No free air. No significant fluid collection. Vasculature: Calcification of the abdominal aorta and/or iliac arteries consistent with atherosclerotic vessel disease. One or more calcified pelvic phleboliths. Lymph nodes: Unremarkable. No enlarged lymph nodes. Urinary bladder: Unremarkable as visualized. Reproductive: Enlarged prostate greater than or equal to 5.0 cm; correlation with PSA levels is recommended. Bones/joints: Levoscoliosis. Partial fusion of T12-L1 and L3-L4 vertebral bodies. Moderate to severe multilevel spine degenerative changes including degenerative disc disease, spondylosis and facet degenerative changes. Metallic fixation of the right hip with metallic artifact. Soft tissues: Unremarkable. Other findings: Examination is limited by artifact from one or both arms by the patient's side. CT/CT abdomen pelvis w con* [id number] IMPRESSION: 1. Moderate to large right pleural fluid collection with moderate left pleural fluid collection. 2. Enlarged prostate greater than or equal to 5.0 cm; correlation with PSA levels is recommended. 3. Percutaneous suprapubic bladder catheter. 4. Collapsed stomach which otherwise appears normal.
[2021-05-03] VITALS (10 sets, daily range): BP systolic 111–140; BP diastolic 49–89; PULSE 70–101; RESP 15–24; TEMP 36.6–37.2; O2SAT 85–95
--- NOTE | 2021-05-03 00:04 | ED_ITS ---
HPI - GI Bleed General: Chief complaint: GI Bleed Stated complaint: COFFEE GROUND EMESIS/ VOMITING Time Seen by Provider: 05/02/21 23:34 Source: patient and EMS History of Present Illness: 76-year-old male patient [facility] He presents after reported episodes of coffee-ground emesis. He denies fever or significant pain. He is on apixaban. Initially the triage, he answered questions very appropriately. He seemed more lethargic on my interview MD complaint: coffee ground emesis Onset (ago): hour(s) Pain Consistency: now resolved Severity: moderate Relieving factors: none Exacerbating factors: none Context: history of GI bleed and anticoagulant use Associated symptoms: Reports abdominal pain, vomiting and weakness (Generalized); Denies fever(s) Review of Systems General: Reports: ROS unobtainable due to mental status Const: Denies: fever(s) GI: Reports: abdominal pain and vomiting PFSH ED PFSH: Medical History Alcoholism in remission Atrial fibrillation Bipolar disorder Contractures involving both knees Diabetes mellitus Generalized muscle weakness GERD (gastroesophageal reflux disease) History of fracture of femur Hypertension -due to continued hypertension, amlodipine added. 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 Mother , 60 Cancer Social History Smoking and tobacco status: never smoked Alcohol intake: never Adopted: No Caregiver/support person: No Lives independently: No Housing: Assisted Living Facility Marital status: / Current occupational status: retired History of recent travel: No Current gender identity: Male Physical Exam Const: GENERAL APPEARANCE: cooperative, lethargic and frail appearing NUTRITIONAL APPEARANCE: thin ORIENTATION/CONSCIOUSNESS: Yes oriented to person, Yes oriented to place and Yes lethargic HENMT: COMMON NORMALS: normocephalic and atraumatic HEAD & SCALP: normocephalic and atraumatic FACE & SINUS: normal facial exam MOUTH: moist mucous membranes abnormal (Dry) Eye: COMMON NORMALS: Equal, round and reactive pupils present and EOMs intact bilaterally SCLERA: scleral abnormal Laterality of scleral abnormality: positive bilateral (Pale) PUPIL: Yes Equal, round and reactive pupils present Chest: COMMONS NORMALS: normal inspection of the chest Resp: COMMON NORMALS: normal respiratory effort, No use of accessory muscles and clear to auscultation bilaterally AUSCULTATION: clear to auscultation bilaterally Cardio: COMMON NORMALS: regular rate and regular rhythm RATE: regular rate RHYTHM: regular rhythm GI: COMMON NORMALS: Normal to inspection, nondistended, normoactive bowel sounds present, Soft to palpation and non-tender PALPATION: Yes Soft to palpation Extremity: COMMON NORMALS: no pedal edema Neuro: SENSORIUM/ORIENTATION: Yes oriented to person, Yes oriented to place and Yes lethargic Course Vital Signs: Vital signs: Vital Signs Temperature 99.1 F 05/02/21 23:31 Pulse Rate 70 05/03/21 03:29 Respiratory Rate 20 H 05/03/21 03:29 Blood Pressure 122/58 05/03/21 03:29 Pulse Oximetry 95 05/03/21 03:29 MDM - GI Bleed Medical Decision Making Vital signs of been normal here. Patient is paced at 70. Blood pressure 105/53. Oxygenation has been good on 3 L nasal cannula. Arterial blood gas sampling shows a pH 7.46. PO2 of 75. His hemoglobin is 10.9 which is baseline. White blood cell count is 10.3. Sodium is low at 122. BUN is 37, creatinine 0.7. Patient's CT scan of the belly is negative for any acute process. It does show moderate bilateral pleural effusions. These appear worse than on chest x- ray back in 2019.However, oxygen saturations are good. There has been no evidence of vomiting here. With hemoglobin being at baseline, we will allow patient back, holding the Eliquis for now, until restarted by his physician. Lab Data : 05/02/21 22:40 05/02/21 22:40 Radiology Impressions Abdomen/Pelvis CT 05/02/21 23:40 IMPRESSION: 1. Moderate to large right pleural fluid collection with moderate left pleural fluid collection. 2. Enlarged prostate greater than or equal to 5.0 cm; correlation with PSA levels is recommended. 3. Percutaneous suprapubic bladder catheter. 4. Collapsed stomach which otherwise appears normal. Laboratory Results WBC 10.3 10^3/uL (4.0-10.0) H 05/02/21 22:40 RBC 3.23 10^6/uL (4.1-5.3) L 05/02/21 22:40 Hgb 10.9 g/dL (11.7-16.6) L 05/02/21 22:40 Hct 28.6 % (42.0-52.0) L 05/02/21 22:40 MCV 88.5 fl (80-94) 05/02/21 22:40 MCH 33.7 pg (28.0-34.0) 05/02/21:40 MCHC 38.1 g/dL (30.0-36.0) H 05/02/21:40 RDW 14.7 % (12.1-15.1) 05/02/21:40 Plt Count 216 10^3/cmm (130-400) 05/02/21 22:40 MPV 12.1 fL (7.4-10.4) H 05/02/21 22:40 Neut % (Auto) 81.2 % 05/02/21 22:40 Lymph % (Auto) 5.8 % 05/02/21 22:40 [place] % (Auto) 11.3 % 05/02/21 22:40 Eos % (Auto) 1.1 % 05/02/21:40 Baso % (Auto) 0.3 % 05/02/21:40 Neut # (Auto) 8.34 10^3/uL (1.8-7.7) H 05/02/21 22:40 Lymph # (Auto) 0.6 10^3/uL (0.8-4.8) L 05/02/21:40 [place] # (Auto) 1.2 10^3/uL (0.2-0.9) H 05/02/21 22:40 Eos # (Auto) 0.1 10^3/uL (0.0-0.8) 05/02/21 22:40 Baso # (Auto) 0.0 10^3/uL (0.0-0.1) 05/02/21 22:40 Nucleated RBC % (auto) 0 % 05/02/21 22:40 Nucleated RBCs # 0.0 /100WBC 05/02/21 22:40 PT 26.90 SECONDS (12.1-14.9) H 05/03/21 00:04 INR 2.43 (0.8-1.2) H 05/03/21 00:04 APTT 47.4 SECONDS (23.9-36.7) H 05/03/21 00:04 Specimen Type Arterial 05/02/21 23:52 Sample Site Radial, right 05/02/21 23:52 ABG pH 7.46 (7.35-7.45) H 05/02/21 23:52 ABG pCO2 30.8 mmHg (35-45) L 05/02/21 23:52 ABG pO2 75.3 mmHg (80.0-100.0) L 05/02/21 23:52 ABG HCO3 22.1 mmol/L (22-26) 05/02/21 23:52 ABG Base Excess -1.1 mmol/L (-2.0-2.0) 05/02/21 23:52 Umesh Test Pos 05/02/21 23:52 Hematocrit 32.4 % (42-52) L 05/02/21 23:52 O2 Delivery Device Nc 05/02/21 23:52 O2 Liters/Min 3.0 % 05/02/21 23:52 [employer] ID [email or web address] 05/02/21 23:52 Sodium 122 mmol/L (136-145) L 05/02/21 22:40 Potassium 4.5 mmol/L (3.5-5.1) 05/02/21 22:40 Chloride 90 mmol/L (98-107) L 05/02/21 22:40 Carbon Dioxide 20 mmol/L (22-29) L 05/02/21 22:40 Anion Gap 16.5 (5-19) 05/02/21 22:40 BUN 37 mg/dL (8-23) H 05/02/21 22:40 Creatinine 0.7 mg/dL (0.7-1.2) 05/02/21 22:40 GFR Calculation Not Reportable 05/02/21 22:40 Glucose 86 mg/dL (65-115) 03/26/22 22:40 Calculated Osmolality 262 mOsm/kg (285-295) L 05/02/21 22:40 Lactate 1.4 mmol/L (0.5-2.2) 05/03/21 00:06 Calcium 9.0 mg/dL (8.5-10.5) 05/02/21 22:40 Total Bilirubin 0.7 mg/dL (0.15-1.2) 05/02/21 22:40 AST 28 U/L (0-40) 05/02/21 22:40 ALT 18 U/L (0-41) 05/02/21 22:40 Alkaline Phosphatase 103 IU/L (40-130) 05/02/21 22:40 C-Reactive Protein 122.4 mg/L (0.0-4.9) H 05/02/21 22:40 Total Protein 7.0 g/dL (6.6-8.7) 05/02/21 22:40 Albumin 3.1 g/dL (3.5-5.2) L 05/02/21 22:40 Globulin 3.9 g/dL (1.3-4.6) 05/02/21 22:40 Lipase 18 U/L (13-60) 05/02/21 22:40 Discharge Plan Discharge Patient Disposition: Home Clinical Impression: Acute upper gastrointestinal bleeding, Pleural effusion Condition: Stable Prescriptions: Discontinued Eliquis 5 mg tablet 5 mg PO BID Qty: 60 3RF No Action bisacodyl 10 mg suppository 10 mg NE DAILY PRN (Reason: CONSTIPATION) 0RF polyethylene glycol 3350 [Miralax] 17 gram powder in packet 17 gm PO DAILY PRN (Reason: Constipation) 0RF lisinopril 20 mg tablet 20 mg PO DAILY 0RF buspirone 15 mg tablet 15 mg PO BID 0RF divalproex 125 mg tablet,delayed release (DR/EC) 125 mg PO BID 0RF furosemide 20 mg tablet 20 mg PO DAILY 0RF magnesium 250 mg tablet 250 mg PO DAILY 0RF potassium chloride 10 mEq capsule, extended release 10 meq PO DAILY 0RF senna 8.6 mg capsule 8.6 mg PO DAILY PRN (Reason: CONSTIPATION) 0RF sertraline 50 mg tablet 50 mg PO DAILY 0RF trazodone 100 mg tablet 100 mg PO BEDTIME 0RF hydrocodone-acetaminophen [[place]] 5-325 mg tablet 1 tab PO Q4-5H PRN (Reason: Pain) 0RF donepezil 10 mg tablet 10 mg PO DAILY 0RF acetaminophen [Tylenol] 325 mg capsule 325 mg PO Q6H PRN (Reason: BREAK THROUGH PAIN) 0RF tizanidine 4 mg capsule 4 mg PO BID 0RF mirtazapine 7.5 mg tablet 7.5 mg PO BEDTIME 0RF amlodipine 5 mg tablet 5 mg PO BID 0RF gabapentin 100 mg capsule 100 mg PO DAILY 0RF Milk of Magnesia 30 ml PO DAILY PRN (Reason: Constipation) 0RF multivitamin 1 tab PO DAILY 0RF alprazolam [Xanax] 0.25 mg Tablet 0.25 mg PO BID PRN (Reason: Anxiety) 0RF Discharge Orders: Discharge ED (Routine); Ordered 05/03/21 Ordered By: Nikita Hunt Referrals: Rambo Yepez [Primary Care Provider] - 1-3 days Patient Instructions: Opioid Safety Activity Restrictions/Additional Instructions: Repeat CBC on Tuesday. Repeat chest x-ray as well. Check vital signs twice daily until seen by physician. Return to the emergency room for any repeated episodes of gastrointestinal bleeding such as coffee-ground or blood in the vomitus or stool etc. Return also for fever greater than 100, increasing pain, worsening mental status, any other concerning symptoms. Hold Eliquis until restarted by your physician. Increase Lasix from 20 mg daily to 20 mg twice daily for the next 3 days. Coding Level of Care Code ED Manager Transport for Arnold Fwd Exam Comprehensive
[2021-05-03 00:12] LABS: Basophils % 0.3 %; Eosinophils # 0.1 10^3/uL (0.0-0.8); Eosinophils % 1.1 %; Hematocrit 28.6 % (42.0-52.0); Hemoglobin 10.9 g/dL (11.7-16.6); Lymphocytes # 0.6 10^3/uL (0.8-4.8); Lymphocytes % 5.8 %; Mean Corpuscular HGB Conc 38.1 g/dL (30.0-36.0); Mean Corpuscular Hemoglobin 33.7 pg (28.0-34.0); Mean Corpuscular Volume 88.5 fl (80-94); Mean Platelet Volume 12.1 fL (7.4-10.4); Monocytes # 1.2 10^3/uL (0.2-0.9); Monocytes % 11.3 %; Neutrophils # 8.34 10^3/uL (1.8-7.7); Neutrophils % 81.2 %; Nucleated Red Blood Cells % 0 %; Platelet Count 216 10^3/cmm (130-400); Red Blood Count 3.23 10^6/uL (4.1-5.3); Red Cell Distribution Width 14.7 % (12.1-15.1); White Blood Count 10.3 10^3/uL (4.0-10.0)
[2021-05-03 00:25] LABS: Alanine Aminotransferase 18 U/L (0-41); Albumin Level 3.1 g/dL (3.5-5.2); Alkaline Phosphatase 103 IU/L (40-130); Aspartate Amino Transferase 28 U/L (0-40); Blood Urea Nitrogen 37 mg/dL (8-23); C Reactive Protein 122.4 mg/L (0.0-4.9); Carbon Dioxide 20 mmol/L (22-29); Chloride 90 mmol/L (98-107); Globulin 3.9 g/dL (1.3-4.6); Glucose 86 mg/dL (65-115); Lipase 18 U/L (13-60); Osmolality Calculated 262 mOsm/kg (285-295); Sodium 122 mmol/L (136-145); Total Bilirubin 0.7 mg/dL (0.15-1.2)
[2021-05-03 00:27] LABS: Anion Gap 16.5 (5-19); Potassium 4.5 mmol/L (3.5-5.1)
[2021-05-03 00:39] LABS: INR 2.43 (0.8-1.2)
[2021-05-03] MEDS: iohexol 300 mg/mL 100 mL Btl IV (00:39)
[2021-05-03 00:40] LABS: Partial Thromboplastin Time 47.4 SECONDS (23.9-36.7)
[2021-05-03 00:40] LABS: Lactate (Lactic Acid level) 1.4 mmol/L (0.5-2.2)
[2021-05-03] MEDS: sodium chloride 0.9% 1,000 ML 999 ML IV (00:45)
[2021-05-03 01:01] LABS: ABG PCO2 30.8 mmHg (35-45); ABG PH Result 7.46 (7.35-7.45); Arterial Blood Gas Hematocrit 32.4 % (42-52); Base Excess ABG -1.1 mmol/L (-2.0-2.0); Blood Gas Allen Test Pos; Blood Gas Sample Site Radial, right; Blood Gas Sample Type Arterial; HCO3 ABG 22.1 mmol/L (22-26); Oxygen Device NC; PO2 ABG 75.3 mmHg (80.0-100.0)
[2021-05-03 03:59] LABS: Add Urine Microscopic? YES; Bilirubin Urine Neg (Negative); Blood Urine 3+ (Negative); Glucose Urine UA Norm (Normal); Ketones Urine Negative (Negative); Leukocyte Esterase Urine 2+ (Negative); Nitrate Urine Negative (Negative); Protein Urine 3+ (Negative); Specific Gravity, Urine 1.015 (1.005-1.030); Sulfosalicylic Acid Urine Positive (Negative); Urine Color Yellow (Yellow); Urobilinogen Urine Norm (Negative); pH Urine 9 (5-7)
[2021-05-03 04:01] LABS: Add Urine Culture? Yes; Amorphous Sediment Urine 4+ /hpf; Bacteria Urine 4+ /hpf; Calcium Oxalate Crystals Urine 0-4 /hpf; RBC Urine 15-25 /hpf (0-2); Squamous Epithelial Cell Urine 0-4 /hpf (0-5); WBC Urine 40-55 /hpf (0-5)
[2021-05-03] MEDS: FUROsemide 10 mg/mL SDV 10mL 80 MG IVP (07:14)
[2021-05-03] MEDS: cefTRIAXone 1,000 MG in sodium chloride 0.9% (plus) 50 ML 100 MG IV (07:14)
[2021-05-03] MEDS: TRAMadol 50 mg Tablet PO ×4 (07:48→22:26)
--- NOTE | 2021-05-03 08:02 | PC.NURSE ---
Suprapubic cath care done, dark krystal, foul smelling urine.
--- NOTE | 2021-05-03 08:39 | P.HP_ITS ---
Providers/Chief Complaint Primary Care Provider: Rambo Yepez Chief Complaint: COFFEE GROUND EMESIS/ VOMITING History of Present Illness 76-year-old gentleman retirement resident was brought in for evaluation after reported coffee-ground emesis, is being admitted for additional evaluation due to shortness of breath, cough, noted hypoxia requiring 6 L of oxygen support, normally not on supplemental oxygen. CT abdomen pelvis obtained initially shows moderate to large right pleural fluid collection with moderate left pleural effusion. Otherwise incidentally noted enlarged prostate, 5 cm, correlation with PSA recommended. Percutaneous suprapubic bladder catheter. Collapsed stomach with which otherwise appears normal. He notes he is coughing, dry cough. Denies chest pain or pressure. He has had no further emesis. Hemoglobin is the same as it was back in March. Noted oxygen saturation 88%. Respiratory rate 22. ABG 7.46/30.8/75.3. Temp 99 Fahrenheit. WBC 10.3. Hemoglobin 10.9, platelets 216. Sodium 122, potassium 4.5, chloride 90, bicarb 20, BUN 37, creatinine 0.7. CRP 122.4. Urine cloudy, 3+ protein, 3+ blood, 2+ leukocyte esterase, negative nitrate, urine RBC 15-25, urine WBC 40-55. 0-4 squamous epithelial cells. 0-4 calcium oxalate crystals. 4+ amorphous sediment. 4+ bacteria. He received 1 L bolus of normal saline. Dose of Lasix 80 mg. And a dose of ceftriaxone. Review of Systems Const: Denies: fever(s), chills, body aches or malaise Eyes: Denies: change in vision or eye redness ENMT: Denies: throat pain, oral sores or ear or mastoid pain Card: Denies: chest pain, edema, pre-syncope or dyspnea on exertion Resp: Reports: dyspnea and non-productive cough; Denies: hemoptysis GI: Reports: nausea and vomiting; Denies: abdominal pain, diarrhea, constipation, hematochezia or melena : Denies: flank pain, difficulty urinating, urinary frequency or hematuria Musc: Denies: back pain, joint swelling or joint redness Skin/Breast: Denies: rash, sores or new lesions Neuro: Denies: headache(s), numbness in extremities, weakness in extremities, dizziness, confusion or seizure-like activity Endo: Denies: polyuria or polydipsia Pedro/Lymph: Denies: easy bleeding or purpura All/Imm: Denies: urticaria, throat swelling or tongue swelling Medications/Allergies Home Medications Medication Instructions Recorded Confirmed Last Taken Type acetaminophen 325 mg capsule 325 mg PO Q6H PRN 02/27/19 11/04/20 03/29/19 History (Tylenol) buspirone 15 mg tablet 15 mg PO BID tab 02/27/19 11/04/20 03/29/19 History divalproex 125 mg tablet,delayed 125 mg PO BID 02/27/19 11/04/20 03/29/19 History release donepezil 10 mg tablet 10 mg PO DAILY 02/27/19 11/04/20 03/29/19 History furosemide 20 mg tablet 20 mg PO DAILY 02/27/19 11/04/20 03/29/19 History hydrocodone 5 mg-acetaminophen 325 1 tab PO Q4-5H PRN 02/27/19 11/04/20 03/28/19 History mg tablet ([place]) lisinopril 20 mg tablet 20 mg PO DAILY 02/27/19 11/04/20 03/29/19 History magnesium 250 mg tablet 250 mg PO DAILY 02/27/19 11/04/20 03/29/19 History potassium chloride 10 mEq 10 meq PO DAILY 02/27/19 11/04/20 03/29/19 History capsule,extended release sennosides 8.6 mg capsule (senna) 8.6 mg PO DAILY PRN 02/27/19 11/04/20 03/22/19 History sertraline 50 mg tablet 50 mg PO DAILY 02/27/19 11/04/20 03/29/19 History tizanidine 4 mg capsule 4 mg PO BID 02/27/19 11/04/20 03/29/19 History trazodone 100 mg tablet 100 mg PO BEDTIME 02/27/19 11/04/20 03/28/19 History bisacodyl 10 mg rectal suppository 10 mg LA DAILY PRN 03/02/19 11/04/20 Unknown History mirtazapine 7.5 mg tablet 7.5 mg PO BEDTIME tab 03/02/19 11/04/20 03/28/19 History polyethylene glycol 3350 17 gram 17 gm PO DAILY PRN 03/02/19 11/04/20 Unknown History oral powder packet (Miralax) Milk of Magnesia 30 ml PO DAILY PRN 03/06/19 11/04/20 Unknown History multivitamin 1 tab PO DAILY 03/06/19 11/04/20 03/29/19 History alprazolam 0.25 mg tablet (Xanax) 0.25 mg PO BID PRN 03/08/19 11/04/20 03/29/19 History amlodipine 5 mg tablet 5 mg PO BID 09/28/19 11/04/20 Unknown History gabapentin 100 mg capsule 100 mg PO DAILY 11/04/20 11/04/20 Unknown History Allergies Allergy/AdvReac Type Severity Reaction Status Date / Time morphine Allergy ADR-Halluci Verified 11/04/20 15:05 nating PFSH Acute PFSH: Medical History Alcoholism in remission Atrial fibrillation Bipolar disorder Contractures involving both knees Diabetes mellitus Generalized muscle weakness GERD (gastroesophageal reflux disease) History of fracture of femur Hypertension -due to continued hypertension, amlodipine added. 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 Mother , 60 Cancer Social History Smoking and tobacco status: never smoked Alcohol intake: never Adopted: No Caregiver/support person: No Lives independently: No Housing: Assisted Living Facility Marital status: / Current occupational status: retired History of recent travel: No Current gender identity: Male Vitals/I&O/Wt Last Vital Signs Temp 99 F 05/03/21 07:22 Pulse 22 L 05/03/21 08:02 Resp 22 H 05/03/21 08:02 BP 140/78 05/03/21 08:02 Pulse Ox 89 L 05/03/21 08:02 05/02/21 05/03/21 05/03/21 22:59 06:59 14:59 Intake Total 1000 / 1000 Output Total 700 / 700 Balance 1000 / 1000 -700 / -700 Weight last 48 hrs Weight 68.039 kg Physical Exam Const: COMMON NORMALS: no acute distress and patient oriented x3 HENMT: COMMON NORMALS: oropharynx normal TEETH & GINGIVA: Yes edentulous and Yes poor dentition Neck/C-Spine: COMMON NORMALS: no JVD Resp: COMMON NORMALS: normal respiratory effort and clear to auscultation bilaterally AUSCULTATION: diminished lung sounds bilateral in the lower lung sahu Cardio: COMMON NORMALS: no JVD, regular rhythm, S1 normal heart sound present, S2 normal heart sound present and No murmurs present (Cardio) RHYTHM: regular rhythm HEART SOUNDS: S1 normal heart sound present and S2 normal heart sound present GI: COMMON NORMALS: Normal to inspection, nondistended, normoactive bowel sounds present, Soft to palpation and non-tender PALPATION: Yes Soft to palpation Extremity: COMMON NORMALS: no joint enlargement and no pedal edema Neuro: COMMON NORMALS: patient oriented x3 and moves all extremities Skin: COMMON NORMALS: no rashes or lesions noted GENERAL SKIN EXAM: no rashes or lesions noted Urinary Catheter Management: Suprapubic: Cath Placed During This Visit: no Reason for Continuing Indwelling Catheter: Chronic Indwelling Urinary Catheter on Admission Data : 05/02/21 22:40 05/02/21 22:40 A&P Assessment and plan (1) Respiratory failure: New hypoxic respiratory failure requiring 6 L of supplemental oxygen, with that saturation is 88%, not normally supplemental oxygen. Noted moderate to large right pleural effusion, moderate left pleural effusion. Possible acute diastolic congestive heart failure. At the moment does not have symptoms grossly suggestive of pneumonia. Will assess with chest x-ray. Assess also TTE. Initiate diuresis, has received 80 mg Lasix, continue 60 mg every 12 hours. Monitor I&O. Monitor sodium with hyponatremia. Check TSH. COVID-19. Status: Acute Qualifiers: Chronicity: acute Respiratory failure complication: hypoxia Qualified Code(s): J96.01 - Acute respiratory failure with hypoxia (2) Pleural effusion: As above. Status: Acute (3) Abnormal urinalysis: Possible UTI, although does have chronic suprapubic catheter. Follow-up urine culture. For now continue ceftriaxone. Status: Acute (4) Hyponatremia: Sodium 122. Possibly hypervolemic with the moderate-large pleural effusions. Diuresis as above. Recheck sodium. Status: Acute (5) Coffee ground emesis: Reported coffee-ground emesis preadmission. Possible upper GI bleed. No recurrence of vomiting. Hemoglobin level is the same as it was back in March. Hold any anticoagulation. Follow-up hemoglobin. PPI. INR is elevated, will give a dose of vitamin K. Status: Acute Plan Abnormal INR: I do not see anticoagulation medication, but medications do need to be reconciled still. Do not see liver primary abnormality. Follow-up INR. May have nutritional deficiency. For now SCD only for DVT prophylaxis. A. fib history GERD HTN Depression Blood bladder dysfunction Status post PPM Suprapubic catheter Attestations Medical Necessity Statement*: Admission of over 2 midnights is anticipated for assessment and management of hypoxic respiratory failure, possible congestive heart failure, possible upper GI bleed. Coding Level of Care Code Acute Database Manager for [facility]wood Diagnoses Respiratory failure J96.01 Chronicity: acute Respiratory failure complication: hypoxia Pleural effusion J90 Abnormal urinalysis R82.90 Hyponatremia E87.1 Coffee ground emesis K92.0
--- NOTE | 2021-05-03 09:26 | PC.NURSE ---
Paged RT d/t sats 86-88, she states pt has sleep apnea, O2 turned up to 8L/oxymask, sats now 90%
--- NOTE | 2021-05-03 09:41 | PC.NURSE ---
Updated pt's brother on status.
[2021-05-03 10:41] LABS: Hemoglobin 10.8 g/dL (11.7-16.6)
[2021-05-03 11:08] LABS: Sodium 125 mmol/L (136-145)
[2021-05-03] MEDS: pantoprazole 40 mg SDV IVP ×2 (11:29→22:30)
[2021-05-03 11:30] LABS: Adenovirus Not Detected (NOT DETECT); Chlamydia Pneumoniae Not Detected (NOT DETECT); Coronavirus 229E,HKU1,NL63,OC4 Not Detected (NOT DETECT); Human Metapneumovirus Not Detected (NOT DETECT); Human Rhinovirus/Enterovirus Not Detected (NOT DETECT); Influenza A Not Detected (NOT DETECT); Influenza A H1 Not Detected (NOT DETECT); Influenza A H1-2009 Not Detected (NOT DETECT); Influenza A H3 Not Detected (NOT DETECT); Influenza B Not Detected (NOT DETECT); Mycoplasma Pneumoniae Not Detected (NOT DETECT); Parainfluenza Virus Type 1 Not Detected (NOT DETECT); Parainfluenza Virus Type 2 Not Detected (NOT DETECT); Parainfluenza Virus Type 3 Not Detected (NOT DETECT); Parainfluenza Virus Type 4 Not Detected (NOT DETECT); Respiratory Syncytial Virus A Not Detected (NOT DETECT); Respiratory Syncytial Virus B Not Detected (NOT DETECT); SARS-COV-2 Not Detected (NOT DETECT)
[2021-05-03] MEDS: phytonadione (ADULT) 10 mg/mL Ampule 1 mL PO (11:30)
[2021-05-03] MEDS: ALPRAZolam 0.5 mg Tablet 0.25 MG PO ×2 (11:30→19:43)
[2021-05-03] MEDS: sertraline 50 mg Tablet PO (11:32)
[2021-05-03] MEDS: FUROsemide 10 mg/mL SDV 10mL 60 MG IVP (16:09)
[2021-05-03] MEDS: BuSPIRONE 10 mg Tablet 15 MG PO (17:38)
--- NOTE | 2021-05-03 20:38 | XRR_ITS ---
PROCEDURE INFORMATION: Exam: XR Chest Exam date and time: 05/03/2021 9:57 PM Age: 76 years old Clinical indication: Dyspnea; Additional info: Hypoxia TECHNIQUE: Imaging protocol: XR of the chest. Views: 1 view. COMPARISON: CR XR chest 1V portable [id number] 03/29/2019 9:41 AM FINDINGS: Tubes, catheters and devices: Left chest ICD is present. Lungs: Hazy central ground-glass airspace opacities bilaterally. Pleural spaces: Layering bilateral pleural effusions. Negative for pneumothorax. Heart/Mediastinum: Cardiomegaly. Bones/joints: Severe joint space narrowing of right glenohumeral joint. XR/XR chest 1V portable [id number] IMPRESSION: Sequela of CHF suspected.
[2021-05-03] MEDS: ondansetron 2 mg/ML SDV 2 mL 4 MG IVP (21:55)
[2021-05-04] VITALS: BP 130/54; PULSE 69; RESP 18; O2SAT 94
[2021-05-04] MEDS: TRAMadol 50 mg Tablet PO ×3 (00:56→19:12)
[2021-05-04] MEDS: acetaminophen 325 mg Tablet 650 MG PO ×2 (00:57→08:25)
[2021-05-04 03:27] LABS: Basophils % 0.5 %; Eosinophils # 0.1 10^3/uL (0.0-0.8); Eosinophils % 1.4 %; Hematocrit 31.6 % (42.0-52.0); Hemoglobin 10.7 g/dL (11.7-16.6); Lymphocytes # 0.7 10^3/uL (0.8-4.8); Lymphocytes % 9.5 %; Mean Corpuscular HGB Conc 33.9 g/dL (30.0-36.0); Mean Corpuscular Hemoglobin 30.1 pg (28.0-34.0); Mean Corpuscular Volume 88.8 fl (80-94); Mean Platelet Volume 11.2 fL (7.4-10.4); Monocytes % 12.3 %; Neutrophils # 5.94 10^3/uL (1.8-7.7); Neutrophils % 75.9 %; Nucleated Red Blood Cells % 0 %; Platelet Count 197 10^3/cmm (130-400); Red Blood Count 3.56 10^6/uL (4.1-5.3); Red Cell Distribution Width 14.4 % (12.1-15.1); White Blood Count 7.8 10^3/uL (4.0-10.0)
[2021-05-04 03:40] LABS: INR 1.65 (0.8-1.2)
[2021-05-04 03:59] LABS: Alanine Aminotransferase 15 U/L (0-41); Albumin Level 2.9 g/dL (3.5-5.2); Alkaline Phosphatase 95 IU/L (40-130); Anion Gap 15.8 (5-19); Aspartate Amino Transferase 22 U/L (0-40); Blood Urea Nitrogen 30 mg/dL (8-23); Calcium 8.7 mg/dL (8.5-10.5); Carbon Dioxide 23 mmol/L (22-29); Chloride 95 mmol/L (98-107); Globulin 3.6 g/dL (1.3-4.6); Glucose 74 mg/dL (65-115); Osmolality Calculated 275 mOsm/kg (285-295); Potassium 3.8 mmol/L (3.5-5.1); Sodium 130 mmol/L (136-145); Thyroid Stimulating Hormone 2.58 uIU/mL (0.27-4.20); Total Bilirubin 0.7 mg/dL (0.15-1.2); Total Protein 6.5 g/dL (6.6-8.7)
[2021-05-04 04:00] VITALS: BP 134/68; PULSE 76; RESP 23; TEMP 36.4; O2SAT 85
[2021-05-04] MEDS: FUROsemide 10 mg/mL SDV 10mL 60 MG IVP ×2 (06:20→18:37)
[2021-05-04] MEDS: cefTRIAXone 1,000 MG in sodium chloride 0.9% (plus) 50 ML 100 MG IV (06:20)
[2021-05-04 07:36] VITALS: BP 142/72; PULSE 62; RESP 17; TEMP 36.8; O2SAT 97
[2021-05-04] MEDS: BuSPIRONE 10 mg Tablet 15 MG PO ×2 (08:22→18:05)
[2021-05-04] MEDS: sertraline 50 mg Tablet PO (08:22)
[2021-05-04] MEDS: ALPRAZolam 0.5 mg Tablet 0.25 MG PO ×2 (08:35→19:13)
--- NOTE | 2021-05-04 10:32 | PC.CHAP ---
Pastoral Care Encounter/Spiritual Assessment Type of Contact [] Declined regional liaison visit [] Patient/Family/Request visit [] Outpatient visit [] Follow-up visit [] Physician referral [] Code/Alert [x] Routine visit [] Staff referral [] Actively dying [] Patient sleeping [] Family support [] [] Out of room [] Palliative care [] [] Receiving care in room [] Pre-surgical visit [] Trauma [] Long length of stay [] ICU visit [] Other: Relational/Emotional Strength [] Patient feels connected with others/family/visitors/staff [] Distress [] Loneliness/isolation [] Abandonment Spirituality of Patient [] Person of Janice [] Attends Anabaptist of their Janice [] Believes in Prayer [] Reads Bible or Mandaen materials [] There are Spiritual issues to be addressed Acupressure Therapist Interventions [x] Prayer [] Active listening [] Non-anxious presence [] Spiritual/emotional support [] Crisis/trauma care [] Spiritual counseling [] Bereavement support [] Provided bereavement packet [] Provided Bible/devotional materials [] Provided toy/stuffed animal, coloring book to patient or family member [] Provided Communion [] Anointing/[place] [] Salvation [x] Completed spiritual assessment [] Other: Impact on Illness or Injury [] Angry [] Fearful [] Anxious [] Often cries [] Exhaustion [] Unable to work [] Unable to attend mormonism [] Unable to walk/stand [] Unable to read [] Unable to drive [] Unable to eat/drink [] Unable to sleep [] Unable to be with family [] Patient intubated [] Other: Summary Time spent with patient
[2021-05-04 11:34] VITALS: BP 124/60; PULSE 72; RESP 18; TEMP 37.2; O2SAT 90
[2021-05-04] MEDS: pantoprazole 40 mg SDV IVP (11:55)
[2021-05-04 16:00] VITALS: BP 124/70; PULSE 76; RESP 18; TEMP 37.1; O2SAT 90
[2021-05-04 20:43] VITALS: BP 112/61; PULSE 70; RESP 21; TEMP 36.4; O2SAT 95
--- NOTE | 2021-05-04 21:05 | P.PN_ITS ---
Subjective Subjective: Patient complains of wanting his usual bed. Uncomfortable and does not like not being in his room. Had to repeatedly remind him that he was in the hospital. Reports a cough. Difficult to get other specific complaints from him though he did ask for thing to help him relax so he could sleep dulce ght. Medications: Reviewed: Yes Vitals/I&O/Wt Last Vital Signs Temp 97.6 F 05/04/21 20:43 Pulse 70 05/04/21 20:43 Resp 21 H 05/04/21 20:43 BP 112/61 05/04/21 20:43 Pulse Ox 95 05/04/21 20:43 05/04/21 05/04/21 05/04/21 06:59 14:59 22:59 Intake Total 120 / 170 410 / 410 240 / 650 Output Total 400 / 3400 775 / 775 Balance -280 / -3230 410 / 410 -535 / -125 Cumulative I&O 05/02/21 23:22 thru 05/04/21 20:44 Intake Total 1820 Output Total 4175 Balance -2355 Weight last 48 hrs Weight 68.039 kg Weight 68.039 kg Physical Exam Narrative: Constitutional: Awake, uncomfortable and chronic ill appearance, lying on his right side HEENT: Dry mucous membranes, extraocular movements intact Respiratory: Coarse breath sounds bilaterally with decreased on the right compared to the left Cardiovascular: Regular rhythm, pacemaker noted Abdomen: Soft, suprapubic catheter appreciated with yellow urine in bag Extremities: Kyphosis noted, some contractures, doughy extremities with 1+ pitting edema Neuro: Speech clear, repetitive questions x3 during the time I was with him, oriented to person but not to place or situation, limited mobility but does move all extremities, no abnormal movements Other: Skin is pale, patient not wanting to maneuver so that I can fully evaluate his skin for any breakdown presently. Urinary Catheter Management: Suprapubic: Cath Placed During This Visit: no Reason for Continuing Indwelling Catheter: Chronic Indwelling Urinary Catheter on Admission (suprapubic) Data : 05/04/21 03:00 05/04/21 03:00 Micro: Microbiology 05/03/21 00:00 Urine Culture - Preliminary Urine,Clean Catch Gram Negative Rods A&P Assessment and plan (1) Coffee ground emesis: Presenting complaint in a patient on chronic anticoagulation, although with stable hemoglobin No recurrence during hospital stay Status: Acute (2) Hyponatremia: Sodium as low is 122, presently is secondary to impart total body volume overl oad with improvement after diuresis Status: Acute (3) Pleural effusion: Bilateral right greater than left, initially noted on CT of the abdomen and pelvis, not as apparent on chest x-ray findings are otherwise consistent with CHF Echocardiogram from March 2019 showed an ejection fraction of 55 to 60% with grade 1/4 diastolic dysfunction described Status: Acute (4) Hypoxemia requiring supplemental oxygen: In a patient not chronically on oxygen, suspect related to above mentioned pulmonary edema. Unknown if ever smoked. Covid negative. Status: Acute (5) Abnormal urinalysis: Suggestive of UTI versus chronic leukosuria in patient with chronic suprapubic catheter Status: Acute (6) Chronic suprapubic catheter: Present on admission Status: Acute (7) Hypertension: Chronically on amlodipine Status: Chronic Qualifiers: Hypertension type: primary hypertension Qualified Code(s): I10 - Essential (primary) hypertension (8) Atrial fibrillation: Chronically on coagulation, has pacemaker Status: Chronic Qualifiers: Atrial fibrillation type: permanent Qualified Code(s): I48.21 - Permanent atrial fibrillation (9) Chronic anticoagulation: Chronically on Eliquis, presently held secondary to #1 Status: Chronic (10) Bipolar disorder: Chronically on Depakote, BuSpar and Zoloft Status: Chronic (11) Dementia: Presumptive diagnosis based on repetitive questions and known history of alcohol use and bipolar disorder along with available prior records Status: Acute Plan Elevated CRP, normal lactic acid level Hypoalbuminemia Normal TSH Continue inpatient management Decrease Lasix to 40 mg every 12 hours Continue to monitor urine output and renal function Recheck lytes in am Recheck CXR in am Echocardiogram limited to evaluate for any changes in ejection fraction to facilitate ongoing management Consider albumin Recheck CRP, check procal PE within differential for hypoxemia, but patient has already has contrast and not sure he could lie flat and still for CTA imaging. Chronic eliquis should be preventative for such and with presentation of coffee ground emesis not fully anticoagulated presently. Check d dimer Continue Rocephin Follow-up pending urine and blood cultures Continue to hold amlodipine Some nonformulary home medications have been addressed to include tizanidine which may help patient not be as uncomfortable in the bed Has as needed Xanax and tramadol I have ordered divalproex sprinkles in place of his usual 125 mg divalproex tablets as we do not have that strength available in the hospital otherwise Continue home sertralineVikas SCDs for DVT prophylaxis Discussed with patient that we can get him back to his room right now due to ongoing care requiring him to be in the hospital at the moment. With adjustments to medications he was agreeable to continued management here for the time being though is eager to get back home Patient was given opportunity to ask questions Supportive care otherwise Presently anticipate disposition back [facility] where he is a long-term resident requiring total care Limited resuscitation with attempted CPR but no prolonged resuscitative efforts Attestations Medical Necessity Statement*: Requires ongoing inpatient stay for continued IV diuresis, antibiotics and other monitoring and care as noted above. Coding Level of Care Code Acute Data Acquisition Technician for chelsea Underwood Diagnoses Coffee ground emesis K92.0 Hyponatremia E87.1 Pleural effusion J90 Abnormal urinalysis R82.90 Hypertension I10 Hypertension type: primary hypertension Atrial fibrillation I48.21 Atrial fibrillation type: permanent Bipolar disorder F31.9 Dementia F03.90 Chronic anticoagulation Z79.01 Hypoxemia requiring supplemental oxygen R09.02; Z99.81 Chronic suprapubic catheter Z93.59
[2021-05-04] MEDS: tizanidine 4 mg Tablet PO (22:45)
[2021-05-05] VITALS (7 sets, daily range): BP systolic 89–136; BP diastolic 36–60; PULSE 60–71; RESP 12–17; TEMP 36.3–36.8; O2SAT 90–97
--- NOTE | 2021-05-05 | USCV_ITS ---
Transthoracic Echo Limited Matheus Garibay Age: 76 Gender: M : 1945 Exam Date: 05/05/2021 02:35 Ordering Phys: Ashwini Frankel MD Technologist: RONI [place] [facility] [place]: Pleural effusions/Pulmonary Edema BP: / HR: 69 Rhythm: Sinus Technical Quality: Adequate MEASUREMENTS (Male / Female) Normal Values 2D ECHO LV Diastolic Diameter PLAX 4.2 cm 4.2 - 5.9 / 3.9 - 5.3 cm LV Systolic Diameter PLAX 2.7 cm IVS Diastolic Thickness 0.8 cm 0.6 - 1.0 / 0.6 - 0.9 cm IVS Systolic Thickness 1.3 cm LVPW Diastolic Thickness 1.0 cm 0.6 - 1.0 / 0.6 - 0.9 cm LVPW Systolic Thickness 1.4 cm LVOT Diameter 2.6 cm LV Ejection Fraction 2D Teich 66.5 % LV Ejection Fraction MOD 2C 33.6 % LV Ejection Fraction 2C AL 37.5 % LA Diameter 3.6 cm LA Width 5.0 cm LA Height 5.6 cm RA Width 4.0 cm RA Height 5.1 cm Aorta at Sinotubular Diameter 2.4 cm M-MODE Aortic Annulus Diameter 4.0 cm LA Ao Ratio MM 0.8 MV E Point Septal Separation 2.4 cm FINDINGS Left Ventricle Diffuse hypokinesia of the interventricular septum and LV apex. Overall LV ejection fraction around 40%(visual) Right Ventricle Right ventricle not well visualized. Right Atrium Mildly increased right atrial size. Left Atrium Mildly increased left atrial size. Mitral Valve Thickened mitral valve. Moderate mitral annular calcification. Aortic Valve Appears thickened. Could not visualize well. Tricuspid Valve Tricuspid valve not well visualized. Pulmonic Valve Pulmonic valve not well visualized. Pericardium No pericardial effusion. Aorta Normal aortic annulus size. CONCLUSIONS Diffuse hypokinesia of the interventricular septum and LV apex. Overall LV ejection fraction around 40%(visual). Mild biatrial enlargement Thickened mitral valve. Moderate mitral annular calcification. Thickened aortic valve Appears thickened. Could not visualize well. There is no pericardial effusion. Technically difficult study because of the poor ultrasonic window. Dr Soledad Mayers MD FAC (Electronically Signed) Final Date: 05 May 2021 14:44 S
[2021-05-05 01:16] LABS: Hemoglobin 10.1 g/dL (11.7-16.6)
[2021-05-05] MEDS: sodium chloride 0.9% 250 ML IV (01:27)
[2021-05-05 02:01] LABS: Valproic Acid Level 13.4 ug/mL (50-100)
[2021-05-05] MEDS: FUROsemide 10 mg/mL SDV 10mL 60 MG IVP (05:22)
[2021-05-05 05:47] LABS: Basophils % 0.3 %; Eosinophils # 0.3 10^3/uL (0.0-0.8); Eosinophils % 4.6 %; Hematocrit 33.7 % (42.0-52.0); Hemoglobin 11.4 g/dL (11.7-16.6); Lymphocytes # 0.4 10^3/uL (0.8-4.8); Lymphocytes % 6.6 %; Mean Corpuscular HGB Conc 33.8 g/dL (30.0-36.0); Mean Corpuscular Hemoglobin 29.5 pg (28.0-34.0); Mean Corpuscular Volume 87.3 fl (80-94); Mean Platelet Volume 10.7 fL (7.4-10.4); Monocytes # 0.9 10^3/uL (0.2-0.9); Neutrophils # 5.03 10^3/uL (1.8-7.7); Neutrophils % 75.4 %; Nucleated Red Blood Cells % 0 %; Platelet Count 207 10^3/cmm (130-400); Red Blood Count 3.86 10^6/uL (4.1-5.3); Red Cell Distribution Width 14.2 % (12.1-15.1); White Blood Count 6.7 10^3/uL (4.0-10.0)
[2021-05-05 06:03] LABS: D Dimer 1.19 ug/mIFEU (0-0.59)
[2021-05-05 06:18] LABS: Anion Gap 12.4 (5-19); Blood Urea Nitrogen 28 mg/dL (8-23); Carbon Dioxide 27 mmol/L (22-29); Chloride 94 mmol/L (98-107); Glucose 85 mg/dL (65-115); Magnesium 1.8 mg/dL (1.7-2.3); Osmolality Calculated 275 mOsm/kg (285-295); Potassium 3.4 mmol/L (3.5-5.1); Sodium 130 mmol/L (136-145)
[2021-05-05 06:26] LABS: Procalcitonin 0.15 ng/mL (0-0.5)
[2021-05-05] MEDS: cefTRIAXone 1,000 MG in sodium chloride 0.9% (plus) 50 ML 100 MG IV (07:12)
[2021-05-05] MEDS: BuSPIRONE 10 mg Tablet 15 MG PO ×2 (10:40→17:39)
[2021-05-05] MEDS: sertraline 50 mg Tablet PO (10:40)
[2021-05-05] MEDS: pantoprazole DR 40 mg Tablet PO ×2 (10:41→17:39)
[2021-05-05] MEDS: divalproex Sprinkles 125 mg Capsule PO ×2 (10:41→17:39)
[2021-05-05] MEDS: ALPRAZolam 0.5 mg Tablet 0.25 MG PO (14:58)
[2021-05-05] MEDS: TRAMadol 50 mg Tablet PO ×2 (14:59→22:16)
[2021-05-05] MEDS: FUROsemide 40 mg Tablet 60 MG PO (19:38)
--- NOTE | 2021-05-05 23:10 | P.PN_ITS ---
Subjective Subjective: Pt denied CP, SOB, cough, N/V. Has occasional outbursts. . 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 Now releived w/ Foleys cath Status: Acute (2) Bipolar disorder: Occasional outbursts Status: Chronic (3) Atrial fibrillation: rate controlled Status: Chronic Qualifiers: Atrial fibrillation type: permanent Qualified Code(s): I48.21 - Permanent atrial fibrillation (4) Hypertension: stable Status: Chronic Qualifiers: Hypertension type: primary hypertension Qualified Code(s): I10 - Essential (primary) hypertension (5) Hyponatremia: improving Status: Acute (6) Coffee ground emesis: Improved. H/H stable Status: Acute (7) Dementia: Status: Acute (8) Pleural effusion: decreasing effusion Status: Acute Plan Correct Low K w/ KCL tab Continue diuretic, Abx Ref to SNF Attestations Medical Necessity Statement*: Pt w/ obstructive uropathy, electrolyte imbalance and possible UTI. needs continued hospitalization pending SNF placement Time Spent in Patient Care: 40 min Coding Level of Care Code Acute Nurse Ldr for Chg Fwd Diagnoses Urinary retention R33.9 Bipolar disorder F31.9 Atrial fibrillation I48.21 Atrial fibrillation type: permanent Hypertension I10 Hypertension type: primary hypertension Hyponatremia E87.1 Coffee ground emesis K92.0 Dementia F03.90 Pleural effusion J90
[2021-05-06] VITALS: BP 115/52; PULSE 70; RESP 16; TEMP 36.7; O2SAT 93
[2021-05-06] MEDS: potassium chloride ER 20 mEq Tablet 40 MEQ PO ×3 (00:22→23:11)
[2021-05-06 00:29] LABS: Basophils % 0.5 %; Eosinophils # 0.3 10^3/uL (0.0-0.8); Eosinophils % 4.2 %; Hematocrit 31.9 % (42.0-52.0); Hemoglobin 11.2 g/dL (11.7-16.6); Lymphocytes # 0.6 10^3/uL (0.8-4.8); Lymphocytes % 8.5 %; Mean Corpuscular HGB Conc 35.1 g/dL (30.0-36.0); Mean Corpuscular Hemoglobin 31.4 pg (28.0-34.0); Mean Corpuscular Volume 89.4 fl (80-94); Mean Platelet Volume 10.4 fL (7.4-10.4); Monocytes # 0.8 10^3/uL (0.2-0.9); Monocytes % 10.5 %; Neutrophils # 5.62 10^3/uL (1.8-7.7); Nucleated Red Blood Cells % 0 %; Platelet Count 229 10^3/cmm (130-400); Red Blood Count 3.57 10^6/uL (4.1-5.3); Red Cell Distribution Width 14.3 % (12.1-15.1); White Blood Count 7.4 10^3/uL (4.0-10.0)
[2021-05-06 00:43] LABS: Anion Gap 15.4 (5-19); Blood Urea Nitrogen 25 mg/dL (8-23); Calcium 8.9 mg/dL (8.5-10.5); Carbon Dioxide 24 mmol/L (22-29); Chloride 95 mmol/L (98-107); Glucose 107 mg/dL (65-115); Osmolality Calculated 277 mOsm/kg (285-295); Potassium 3.4 mmol/L (3.5-5.1); Sodium 131 mmol/L (136-145)
[2021-05-06] MEDS: acetaminophen 325 mg Tablet PO ×2 (02:16→20:51)
[2021-05-06 07:52] LABS: Basophils % 0.4 %; Eosinophils # 0.3 10^3/uL (0.0-0.8); Eosinophils % 4.1 %; Hemoglobin 12.3 g/dL (11.7-16.6); Lymphocytes # 0.6 10^3/uL (0.8-4.8); Lymphocytes % 7.5 %; Mean Corpuscular HGB Conc 32.4 g/dL (30.0-36.0); Mean Corpuscular Hemoglobin 28.9 pg (28.0-34.0); Mean Corpuscular Volume 89.4 fl (80-94); Mean Platelet Volume 10.5 fL (7.4-10.4); Monocytes # 0.7 10^3/uL (0.2-0.9); Neutrophils # 5.98 10^3/uL (1.8-7.7); Neutrophils % 78.9 %; Nucleated Red Blood Cells % 0 %; Platelet Count 226 10^3/cmm (130-400); Red Blood Count 4.25 10^6/uL (4.1-5.3); Red Cell Distribution Width 14.4 % (12.1-15.1); White Blood Count 7.6 10^3/uL (4.0-10.0)
[2021-05-06 08:00] VITALS: BP 128/56; PULSE 69; RESP 18; TEMP 36.8; O2SAT 89
[2021-05-06 08:16] LABS: Blood Urea Nitrogen 23 mg/dL (8-23); Carbon Dioxide 21 mmol/L (22-29); Chloride 95 mmol/L (98-107); Glucose 95 mg/dL (65-115); Osmolality Calculated 269 mOsm/kg (285-295); Sodium 128 mmol/L (136-145)
[2021-05-06 08:17] LABS: Anion Gap 16.2 (5-19); Potassium 4.2 mmol/L (3.5-5.1)
[2021-05-06] MEDS: sertraline 50 mg Tablet PO (08:54)
[2021-05-06] MEDS: divalproex Sprinkles 125 mg Capsule PO ×2 (08:54→17:02)
[2021-05-06] MEDS: pantoprazole DR 40 mg Tablet PO ×2 (08:54→17:00)
[2021-05-06] MEDS: BuSPIRONE 10 mg Tablet 15 MG PO ×2 (08:54→17:00)
[2021-05-06] MEDS: FUROsemide 40 mg Tablet 60 MG PO ×2 (08:55→16:57)
[2021-05-06 11:53] VITALS: BP 125/71; PULSE 78; RESP 18; TEMP 36.4; O2SAT 92
--- NOTE | 2021-05-06 12:45 | PC.SOCIAL ---
Pg 2 IMM Explained to pt Pg 2 IMM. No questions voiced. Provided pt a copy. Initialed, dated, & timed a copy & placed in chart.
[2021-05-06] MEDS: ALPRAZolam 0.5 mg Tablet 0.25 MG PO (13:29)
--- NOTE | 2021-05-06 14:32 | PM.DCS ---
Discharge Providers Date of Admission: 05/03/21 07:18 Date of Discharge: May 06, 2021 Attending Provider at Admission: Jase Jones Attending Provider at Discharge: Rosa Beltran MD Primary Care Provider: Rambo Yepez Diagnoses at Discharge Discharge Diagnosis (1) Urinary retention: Status: Acute Permanent problem details: (2) Bipolar disorder: Status: Chronic (3) Atrial fibrillation: Status: Chronic Qualifiers: Atrial fibrillation type: permanent Qualified Code(s): I48.21 - Permanent atrial fibrillation (4) Hypertension: Status: Chronic Qualifiers: Hypertension type: primary hypertension Qualified Code(s): I10 - Essential (primary) hypertension (5) Hyponatremia: Status: Acute (6) Coffee ground emesis: Status: Acute (7) Dementia: Status: Acute (8) Pleural effusion: Status: Acute Reason for Visit Reason for Visit: COFFEE GROUND EMESIS/ VOMITING Hospital Course Hospital Course 76-year-old gentleman [facility] resident was brought in for evaluation after reported coffee-ground emesis, is being admitted for additional evaluation due to shortness of breath, cough, noted hypoxia requiring 6 L of oxygen support, normally not on supplemental oxygen.? CT abdomen pelvis obtained initially shows moderate to large right pleural fluid collection with moderate left pleural effusion.? Otherwise incidentally noted enlarged prostate, 5 cm, correlation with PSA recommended.? Percutaneous suprapubic bladder catheter.? Collapsed stomach with which otherwise appears normal. He notes he is coughing, dry cough.? Denies chest pain or pressure. He has had no further emesis.? Hemoglobin is the same as it was back in March. Noted oxygen saturation 88%.? Respiratory rate 22.? ABG 7.46/30.8/75.3.? Temp 99 Fahrenheit.? WBC 10.3.? Hemoglobin 10.9, platelets 216.? Sodium 122, potassium 4.5, chloride 90, bicarb 20, BUN 37, creatinine 0.7.? CRP 122.4. Urine cloudy, 3+ protein, 3+ blood, 2+ leukocyte esterase, negative nitrate, urine RBC 15-25, urine WBC 40-55.? 0-4 squamous epithelial cells.? 0-4 calcium oxalate crystals.? 4+ amorphous sediment.? 4+ bacteria. He received 1 L bolus of normal saline.? Dose of Lasix 80 mg.? And a dose of ceftriaxone. Pt was admitted to [facility]. pT WAS NOTED TO HAVE SIGNIFICANT pLEURAL eFFUSION. hE WAS TREATW/ lASIX AND THIS SEEMED TO IMPROVE HIS RESPIRATORY DISTRESS AND DECREASE THE pLEURAL eFFUSION. dUE TO THE lASIX HE HAD DEVELOPED HYPOKALEMIA WHICH WAS CORRECTED. hE ALSO HAD A uti DUE TO pROTEUS MIRABILIS AND WAS INITIALLY TREATED W/ rOCEPHINE AND ON D/C CHANGED TO cIPRO. hE GAVE H/O hEMETEMESIS, HOWEVER HIS h/h REMAINED STABLE. hE HAS DEMENTIA W/ BEHAVIORAL DIS. hAD OCCASIONAL BOUTS OF AGGITATION WHICH WAS MANAGED W/ aTIVAN PRN. He also had hyponatremia and was d/c w/ NaCl tab. 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 echo limited [id number] Routine Ultrasound 05/05/21 Completed Pending at discharge Category Date Time Status BMP [Basic Metabolic Panel] AM LABS Lab 05/07/21 04:00 Ordered Radiology Impressions Abdomen/Pelvis CT 05/02/21 23:40 IMPRESSION: 1. Moderate to large right pleural fluid collection with moderate left pleural fluid collection. 2. Enlarged prostate greater than or equal to 5.0 cm; correlation with PSA levels is recommended. 3. Percutaneous suprapubic bladder catheter. 4. Collapsed stomach which otherwise appears normal. Chest X-Ray 05/03/21 20:38 IMPRESSION: Sequela of CHF suspected. Laboratory Results WBC 7.6 10^3/uL (4.0-10.0) 05/06/21 07:43 RBC 4.25 10^6/uL (4.1-5.3) 05/06/21 07:43 Hgb 12.3 g/dL (11.7-16.6) 05/06/21 07:43 Hct 38.0 % (42.0-52.0) L 05/06/21 07:43 MCV 89.4 fl (80-94) 05/06/21 07:43 MCH 28.9 pg (28.0-34.0) 05/06/21 07:43 MCHC 32.4 g/dL (30.0-36.0) D 05/06/21 07:43 RDW 14.4 % (12.1-15.1) 05/06/21 07:43 Plt Count 226 10^3/cmm (130-400) 05/06/21 07:43 MPV 10.5 fL (7.4-10.4) H 05/06/21 07:43 Neut % (Auto) 78.9 % 05/06/21 07:43 Lymph % (Auto) 7.5 % 05/06/21 07:43 [place] % (Auto) 9.0 % 05/06/21 07:43 Eos % (Auto) 4.1 % 05/06/21 07:43 Baso % (Auto) 0.4 % 05/06/21 07:43 Neut # (Auto) 5.98 10^3/uL (1.8-7.7) 05/06/21 07:43 Lymph # (Auto) 0.6 10^3/uL (0.8-4.8) L 05/06/21 07:43 [place] # (Auto) 0.7 10^3/uL (0.2-0.9) 05/06/21 07:43 Eos # (Auto) 0.3 10^3/uL (0.0-0.8) 05/06/21 07:43 Baso # (Auto) 0.0 10^3/uL (0.0-0.1) 05/06/21 07:43 Nucleated RBC % (auto) 0 % 05/06/21 07:43 Nucleated RBCs # 0.0 /100WBC 05/06/21 07:43 PT 19.90 SECONDS (12.1-14.9) H 05/04/21 03:00 INR 1.65 (0.8-1.2) H 05/04/21 03:00 APTT 47.4 SECONDS (23.9-36.7) H 05/03/21 00:04 D-Dimer 1.19 ug/mIFEU (0-0.59) H 05/05/21 05:30 Specimen Type Arterial 05/02/21 23:52 Sample Site Radial, right 05/02/21 23:52 ABG pH 7.46 (7.35-7.45) H 05/02/21 23:52 ABG pCO2 30.8 mmHg (35-45) L 05/02/21 23:52 ABG pO2 75.3 mmHg (80.0-100.0) L 05/02/21 23:52 ABG HCO3 22.1 mmol/L (22-26) 05/02/21 23:52 ABG Base Excess -1.1 mmol/L (-2.0-2.0) 05/02/21 23:52 Umesh Test Pos 05/02/21 23:52 Hematocrit 32.4 % (42-52) L 05/02/21 23:52 O2 Delivery Device Nc 05/02/21 23:52 O2 Liters/Min 3.0 % 05/02/21 23:52 Coil Winding Supervisor ID [email or web address] 05/02/21 23:52 Sodium 128 mmol/L (136-145) L 05/06/21 07:43 Potassium 4.2 mmol/L (3.5-5.1) 05/06/21 07:43 Chloride 95 mmol/L (98-107) L 05/06/21 07:43 Carbon Dioxide 21 mmol/L (22-29) L 05/06/21 07:43 Anion Gap 16.2 (5-19) 05/06/21 07:43 BUN 23 mg/dL (8-23) 05/06/21 07:43 Creatinine 0.6 mg/dL (0.7-1.2) L 05/06/21 07:43 GFR Calculation Not Reportable 05/06/21 07:43 Glucose 95 mg/dL (65-115) 05/06/21 07:43 Calculated Osmolality 269 mOsm/kg (285-295) L 05/06/21 07:43 Lactate 1.4 mmol/L (0.5-2.2) 05/03/21 00:06 Calcium 9.0 mg/dL (8.5-10.5) 05/06/21 07:43 Magnesium 1.8 mg/dL (1.7-2.3) 05/05/21 05:30 Total Bilirubin 0.7 mg/dL (0.15-1.2) 05/04/21 03:00 AST 22 U/L (0-40) 05/04/21 03:00 ALT 15 U/L (0-41) 05/04/21 03:00 Alkaline Phosphatase 95 IU/L (40-130) 05/04/21 03:00 C-Reactive Protein 122.4 mg/L (0.0-4.9) H 05/02/21 22:40 Total Protein 6.5 g/dL (6.6-8.7) L 05/04/21 03:00 Albumin 2.9 g/dL (3.5-5.2) L 05/04/21 03:00 Globulin 3.6 g/dL (1.3-4.6) 05/04/21 03:00 Lipase 18 U/L (13-60) 05/02/21 22:40 Procalcitonin 0.15 ng/mL (0-0.5) 05/05/21 05:30 TSH 2.58 uIU/mL (0.27-4.20) 05/04/21 03:00 Urine Color Yellow (Yellow) 05/03/21 00:00 Urine Appearance Sl cloudy (CLEAR) A 05/03/21 00:00 Urine pH 9 (5-7) H 05/03/21 00:00 Ur Specific [place] 1.015 (1.005-1.030) 05/03/21 00:00 Urine Protein 3+ (Negative) H 05/03/21 00:00 Urine Glucose (UA) Norm (Normal) 05/03/21 00:00 Urine Ketones Negative (Negative) 05/03/21 00:00 Urine Blood 3+ (Negative) H 05/03/21 00:00 Urine Nitrate Negative (Negative) 05/03/21 00:00 Urine Bilirubin Neg (Negative) 05/03/21 00:00 Prot Sulfosalicylic Acd Positive (Negative) 05/03/21 00:00 Urine Urobilinogen Norm mg/dL (Negative) 05/03/21 00:00 Ur Leukocyte Esterase 2+ (Negative) H 05/03/21 00:00 Urine RBC 15-25 /hpf (0-2) H 05/03/21 00:00 Urine WBC 40-55 /hpf (0-5) H 05/03/21 00:00 Ur Squamous Epith Cells 0-4 /hpf (0-5) H 05/03/21 00:00 Calcium Oxalate Crystal 0-4 /hpf H 05/03/21 00:00 Amorphous Sediment 4+ /hpf 05/03/21 00:00 Urine Bacteria 4+ /hpf (NONE) H 05/03/21 00:00 Valproic Acid 13.4 ug/mL (50-100) L 05/05/21 01:20 Coronavirus 229E (PCR) Not detected (NOT DETECT) 05/03/21 08:45 SARS-CoV-2 (PCR) Not detected (NOT DETECT) 05/03/21 08:45 Vitals Last Vital Signs Temp 97.5 F L 05/06/21 11:53 Pulse 78 05/06/21 11:53 Resp 18 05/06/21 11:53 BP 125/71 05/06/21 11:53 Pulse Ox 92 05/06/21 11:53 Discharge Plan Discharge Patient Disposition: Xfer SNF Condition: Stable Prescriptions: New pantoprazole 40 mg Tablet,Delayed Release (Dr/Ec) 40 mg PO BID Qty: 60 0RF Cipro 500 mg tablet 250 mg PO BID Qty: 12 0RF furosemide 40 mg tablet 20 mg PO BID Qty: 60 0RF potassium chloride 20 mEq tablet extended release 20 meq PO BID Qty: 60 0RF sodium chloride 1 gram tablet 1,000 mg PO BID Qty: 60 0RF Continued bisacodyl 10 mg suppository 10 mg [place] DAILY PRN (Reason: CONSTIPATION) 0RF polyethylene glycol 3350 [Miralax] 17 gram powder in packet 17 gm PO DAILY PRN (Reason: Constipation) 0RF buspirone 15 mg tablet 15 mg PO BID 0RF divalproex 125 mg tablet,delayed release (DR/EC) 125 mg PO BID 0RF senna 8.6 mg capsule 8.6 mg PO DAILY PRN (Reason: CONSTIPATION) 0RF sertraline 50 mg tablet 50 mg PO DAILY 0RF acetaminophen [Tylenol] 325 mg capsule 325 mg PO Q6H PRN (Reason: BREAK THROUGH PAIN) 0RF tizanidine 4 mg capsule 4 mg PO BID 0RF magnesium hydroxide [Milk of Magnesia] 400 mg/5 mL Suspension 30 ml PO DAILY PRN (Reason: Constipation) Qty: 0 0RF alprazolam [Xanax] 0.25 mg Tablet 0.25 mg PO BID PRN (Reason: Anxiety) 0RF tramadol 50 mg Tablet 50 mg PO Q6H PRN (Reason: Pain) 0RF amlodipine 10 mg Tablet 10 mg PO DAILY 0RF alum-mag hydroxide-simeth 200-200-20 mg/5 mL Suspension 15 ml PO Q4H PRN (Reason: Acid Reflux) 0RF Rx Instructions: administer between meals and at bedtime food supplemt, lactose-reduced Liquid 30 ea PO TID 0RF MediHoney (honey) 80 % Gel 1 applic TOPICAL DAILY PRN (Reason: skin breakdown) 0RF Eliquis 5 mg Tablet 5 mg PO BID 0RF Pro-Stat AWC 17-100 gram-kcal/30 mL Liquid 30 ea PO BID 0RF Discontinued Eliquis 5 mg tablet 5 mg PO BID Qty: 60 3RF Discharge Orders: Discharge Order (Routine); Ordered 05/06/21 Ordered By: Rosa Beltran Referrals: [facility] [Outside] Rambo Yepez [Primary Care Provider] - 1-3 days Discharge Diet: Usual diet Discharge Activity: Resume usual activity Activity Restrictions/Additional Instructions: Repeat CBC on Tuesday. Repeat chest x-ray as well. Check vital signs twice daily until seen by physician. Return to the emergency room for any repeated episodes of gastrointestinal bleeding such as coffee-ground or blood in the vomitus or stool etc. Return also for fever greater than 100, increasing pain, worsening mental status, any other concerning symptoms. Hold Eliquis until restarted by your physician. Increase Lasix from 20 mg daily to 20 mg twice daily for the next 3 days. Discharge Attestations Time Spent in Discharge Care*: greater than 30 min Status at Discharge: Cognitive status at discharge: cognitively intact, Behavioral status at discharge: cooperative, Quality Metrics Clinical Quality Measures [ No reported AMI, CVA or VTE this stay] Coding Level of Care Code Acute Chg [facility] note Diagnoses Urinary retention R33.9 Bipolar disorder F31.9 Atrial fibrillation I48.21 Atrial fibrillation type: permanent Hypertension I10 Hypertension type: primary hypertension Hyponatremia E87.1 Coffee ground emesis K92.0 Dementia F03.90 Pleural effusion J90
[2021-05-06 16:00] VITALS: BP 129/56; PULSE 78; RESP 20; TEMP 36.6; O2SAT 93
[2021-05-06] MEDS: TRAMadol 50 mg Tablet PO (17:04)
[2021-05-06 20:00] VITALS: BP 132/61; PULSE 72; RESP 20; TEMP 36.6; O2SAT 90
[2021-05-06] MEDS: polyethylene glycol 3350 Pkt 17 gm PO (20:18)
[2021-05-07] VITALS: BP 110/55; PULSE 69; RESP 20; TEMP 36.7; O2SAT 94
[2021-05-07 04:00] VITALS: BP 119/62; PULSE 71; RESP 19; TEMP 36.6; O2SAT 94
[2021-05-07 06:03] LABS: Anion Gap 17.6 (5-19); Blood Urea Nitrogen 18 mg/dL (8-23); Calcium 9.5 mg/dL (8.5-10.5); Carbon Dioxide 23 mmol/L (22-29); Chloride 95 mmol/L (98-107); Glucose 93 mg/dL (65-115); Osmolality Calculated 274 mOsm/kg (285-295); Potassium 4.6 mmol/L (3.5-5.1); Sodium 131 mmol/L (136-145)
[2021-05-07 08:00] VITALS: BP 128/57; PULSE 73; RESP 18; TEMP 36.4; O2SAT 95
[2021-05-07 08:15] VITALS: PULSE 74; O2SAT 95
[2021-05-07] MEDS: BuSPIRONE 10 mg Tablet 15 MG PO (09:02)
[2021-05-07] MEDS: sertraline 50 mg Tablet PO (09:02)
[2021-05-07] MEDS: pantoprazole DR 40 mg Tablet PO (09:02)
[2021-05-07] MEDS: divalproex Sprinkles 125 mg Capsule PO (09:03)
[2021-05-07] MEDS: FUROsemide 40 mg Tablet 60 MG PO (09:05)
[2021-05-07 09:28] VITALS: PULSE 74; O2SAT 95
== END 2021-05-07 09:00 | disposition skilled nursing facility (03) | DRG 291 ==
LOC: ER 05-03 08:07 → MEDSURG 05-03 17:00
PROVIDERS: Hospitalist; Admitting Provider Internal Medicine; Emergency Provider Emergency Medicine; PCP Family Medicine; Visit Provider Internal Medicine
DX: I11.0 Hypertensive heart disease with heart failure (principal); J96.01 Acute respiratory failure with hypoxia; I50.21 Acute systolic (congestive) heart failure; N39.0 Urinary tract infection, site not specified; K92.0 Hematemesis; F03.91 Unspecified dementia, unspecified severity, with behavioral disturbance; E87.1 Hypo-osmolality and hyponatremia; I48.21 Permanent atrial fibrillation; E87.6 Hypokalemia; B96.4 Proteus (mirabilis) (morganii) as the cause of diseases classified elsewhere; N13.9 Obstructive and reflux uropathy, unspecified; N40.1 Benign prostatic hyperplasia with lower urinary tract symptoms; R33.9 Retention of urine, unspecified; F31.9 Bipolar disorder, unspecified; E11.9 Type 2 diabetes mellitus without complications; K21.9 Gastro-esophageal reflux disease without esophagitis; E88.09 Other disorders of plasma-protein metabolism, not elsewhere classified; Z95.0 Presence of cardiac pacemaker; Z89.429 Acquired absence of other toe(s), unspecified side; Z79.01 Long term (current) use of anticoagulants
CPT/HCPCS: 36415; 36600; 71045; 74177; 80048; 80053; 80164; 81001; 82803; 83605; 83690; 83735; 84145; 84295; 84443; 85018; 85025; 85378; 85610; 85730; 86140; 87077; 87086; 87186; 87635; 93308; 94664; 96365; 96375; 99285; C9113; J0696; J1940; J2405; J3430; J7030; J7050; P9047; Q9967